=== PATIENT | female | born 1980 | race Caucasian/White ===

== ENCOUNTER → 2016-08-21 | Outpatient (CLI) | payer OTHER ==
[~2016-08-21] MED LIST: ATV/1 PO; BACL20TA PO; CHOL2000 PO; CLC100 PO; CLON1TAB3 PO; CLX40 PO; CYAN10005 PO; DIAZ10GE RE; FING1CAP PO; GABA800T PO; LAMO150T32 PO; LAMO200T38 PO; LAMO25TA PO; LEVE750T PO; LEVO50TA6 PO; METH500T37 PO; NRN800 PO; QUET150T PO; SRQ25 PO; ZFRODT4HP PO
[2016-08-21 13:14] LABS: BASO % 0.2 %; BASO ABS # 0.01 K/uL (0-0.2); COMPLETE YES; EOS % 0.4 %; HEMATOCRIT 45.4 % (37-47); IG% 0.2 %; LYMPH % 11.9 %; LYMPH ABS # 0.65 K/uL (1.2-3.4); MEAN CELL VOLUME 90.8 fL (80-100); MEAN CORPUSCULAR HEMOGLOBIN 31.4 pg (25-34); MEAN CORPUSCULAR HGB CONC 34.6 g/dl (32-36); MEAN PLATELET VOLUME 9.3 fL (7.4-10.4); MONO % 9.3 %; PLATELET COUNT 258 K/uL (130-400); WHITE BLOOD COUNT 5.46 K/uL (4.8-10.8)
[2016-08-21 13:49] LABS: ALT/SGPT 16 U/L (12-78); BLOOD UREA NITROGEN 8 mg/dl (7-18); CARBON DIOXIDE 27 mmol/L (21-32); CHLORIDE 106 mmol/L (98-107); CREATININE 0.68 mg/dl (0.60-1.20); GLUCOSE 91 mg/dl (70-99); POTASSIUM 3.6 mmol/L (3.5-5.1); SODIUM 142 mmol/L (136-145)
[2016-08-21 13:59] LABS: ALB/GLOB RATIO 1.5 (0.9-2); ALKALINE PHOSPHATASE 92 U/L (45-117); AST/SGOT 8 U/L (15-37); THYROID STIMULATING HORMONE 0.718 uIu/ml (0.300-4.500)
[2016-08-26 23:29] LABS: JCV ANTIBODY POSITIVE; JCV INDEX 0.56
== END | disposition home or self-care (01) ==
LOC: C.LAB 11:50
PROVIDERS: ATTEND Physician Assistant
DX: G35 Multiple sclerosis (principal); E03.9 Hypothyroidism, unspecified; E55.9 Vitamin D deficiency, unspecified; G40.309 Generalized idiopathic epilepsy and epileptic syndromes, not intractable, without status epilepticus; M62.838 Other muscle spasm; Z51.81 Encounter for therapeutic drug level monitoring; Z79.899 Other long term (current) drug therapy

== ENCOUNTER 2016-10-15 19:44 | Emergency (ER) | payer OTHER ==
[~2016-10-15] VITALS: Ht 172.7 cm; Wt 49.9 kg
[~2016-10-15 19:44] MED LIST changes: -CHOL2000 PO; -CYAN10005 PO; -DIAZ10GE RE; -FING1CAP PO; -LAMO150T32 PO; -LAMO25TA PO; -METH500T37 PO; -NRN800 PO; -SRQ25 PO; -ZFRODT4HP PO
[2016-10-15 19:47] VITALS: TEMP 37.2; Ht 172.7 cm; Wt 49.9 kg
[2016-10-15 20:24] VITALS: O2SAT 96
[2016-10-15 20:30] LABS: BASO % 0.2 %; BASO ABS # 0.01 K/uL (0-0.2); COMPLETE YES; IG% 0.2 %; LYMPH % 11.6 %; LYMPH ABS # 0.56 K/uL (1.2-3.4); MEAN CELL VOLUME 92.3 fL (80-100); MEAN CORPUSCULAR HEMOGLOBIN 32.1 pg (25-34); MEAN CORPUSCULAR HGB CONC 34.8 g/dl (32-36); MEAN PLATELET VOLUME 9.3 fL (7.4-10.4); MONO % 16.1 %; NEUT % 70.9 %; PLATELET COUNT 267 K/uL (130-400); RED BLOOD COUNT 4.55 M/uL (4.2-5.4); WHITE BLOOD COUNT 4.83 K/uL (4.8-10.8)
[2016-10-15 20:37] LABS: BUN/CREATININE RATIO 11.2 (10-20); CALCIUM 8.8 mg/dl (8.5-10.1); CREATININE 0.57 mg/dl (0.60-1.20); MAGNESIUM 2.3 mg/dl (1.8-2.4); POTASSIUM 3.7 mmol/L (3.5-5.1)
[2016-10-15 20:42] LABS: INR 0.9 (0.9-1.1)
[2016-10-15 20:48] LABS: PHOSPHORUS 3.1 mg/dl (2.5-4.9); THYROID STIMULATING HORMONE 2.41 uIu/ml (0.300-4.500)
[2016-10-15] MEDS ORDERED: SRQ25 PO (21:30)
[2016-10-15] MEDS ORDERED: FING1CAP PO (21:30)
[2016-10-15 21:33] LABS: URINE APPEARANCE TURBID (CLEAR); URINE BILIRUBIN NEG (NEG); URINE COLOR YELLOW; URINE EPITHELIAL CELL AUTO >30 /lpf (0-5); URINE NITRITE NEG (NEG); URINE PH 8.5 (4.5-7.5); URINE SPECIFIC GRAVITY 1.024 (1.000-1.030); UROBILINOGEN NEG (NEG)
[2016-10-15 21:35] LABS: MANUAL MICROSCOPIC REQUIRED? NO; REVIEW REQ? NO
--- NOTE | 2016-10-15 22:17 | EMERGENCY ROOM VISIT NOTE ---
History Report prepared by Jordyn: Fazal Estevez Under the Supervision of: Dr. Vicente Pedraza M.D. First contact with patient: 19:50 Chief Complaint: SEIZURE Stated Complaint: SEIZURE History of Present Illness The patient is a 35 year old female who presents to the Emergency Room by EMS with complaints of an episode of seizure-like activity occurring 2 hours ago. She has a history of a seizure disorder and MS. Per caregiver, the patient has had a lot of "small seizures" on and off for the past few months, but none this severe. She states that the patient began seizing shortly after brushing her teeth tonight. She states that her seizure began with "stabbing" pain and " sharp sounds" in her left ear. The patient's caregiver states that the patient laid down on her bed, and began convulsing. She states that she flipped the patient onto her side because she was making "gurgling" noises. She estimates that the episode lasted for about 20 minutes. The patient has had 20 minute long seizures in the past, but not recently. She notes that she is on Lamictal and Keppra for her seizures. She currently complains of a headache and nausea. The patient began vomiting upon arriving to the ED. Source of History: patient Onset: 2 hours ago Symptom Intensity: 20 minutes Quality: other (seizure-like activity) Timing: other (episode) Associated Symptoms: + headache, + nausea, + vomiting Review of Systems See HPI for pertinent positives & negatives. A total of 10 systems reviewed and were otherwise negative. Past Medical & Surgical Medical Problems: (1) Altered mental status (2) Expressive aphasia (3) Expressive aphasia (4) MS (multiple sclerosis) (5) MS (multiple sclerosis) (6) Seizures (7) Seizures (8) Sprain of knee (9) Sprain of knee (10) Status epilepticus Surgical Problems: (1) History of knee surgery Family History FHx: hypertension FHx: seizures Social History Smoking Status: Current Every Day Smoker Alcohol Use: none Drug Use: marijuana Marital Status: single Housing Status: lives with family Occupation Status: disabled Current/Historical Medications Scheduled Baclofen (Lioresal), 20 MG PO HS Citalopram (Citalopram Hydrobromide), 40 MG PO QAM Clonazepam (Klonopin), Unknown Dose PO HS Fingolimod Hcl (Gilenya), 0.5 MG PO DAILY Gabapentin (Neurontin), 1,600 MG PO BID Lamotrigine (Lamictal), 200 MG PO BID Levetiracetam (Keppra), 1,500 MG PO BID Levothyroxine Sodium (Levothyroxine Sodium), 50 MCG PO DAILY Quetiapine Fumarate (Quetiapine Fumarate), 75 MG PO HS Scheduled PRN Docusate Sodium (Docusate Sodium), 100 MG PO DAILY PRN for Constipation Lorazepam (Ativan), 1 MG PO BID PRN for Anxiety Allergies Coded Allergies: Penicillins (Verified Allergy, Mild, 10/15/16) Clindamycin (Verified Adverse Reaction, Severe, NAUSEA/VOMITING, 10/15/16) Rice (Verified Adverse Reaction, Unknown, vomiting, 10/15/16) Physical Exam Vital Signs Date Time Temp Pulse Resp B/P Pulse Ox O2 Delivery O2 Flow Rate FiO2 10/15/16 22:20 82 16 127/72 96 10/15/16 21:24 96 16 118/69 96 Room Air 10/15/16 20:24 96 Room Air 10/15/16 19:57 94 10/15/16 19:47 37.2 94 16 123/76 96 Room Air Physical Exam GENERAL: Patient is a healthy-appearing well-nourished HEAD: Normocephalic atraumatic EYES: Ocular movements intact pupils equal and react to light OROPHARYNX mucous membranes are moist no exudates present no erythema or edema present NECK: Supple no nuchal rigidity CHEST: Good equal expansion LUNGS: Clear and equal to auscultation CARDIAC: Normal S1 and S2 ABDOMEN: Soft nontender no guarding BACK: No CVA tenderness EXTREMITIES: No pain upon palpation normal muscle strength in all groups no clubbing cyanosis or edema NEURO: Patient is following commands is answering questions appropriately. Alert and oriented x3 Cranial Nerves 2-12 grossly intact Medical Decision & Procedures Laboratory Results 10/15/16 19:00 Red Blood Count 4.55, Mean Corpuscular Volume 92.3, Mean Corpuscular Hemoglobin 32.1, Mean Corpuscular Hemoglobin Concent 34.8, Mean Platelet Volume 9.3, Neutrophils (%) (Auto) 70.9, Lymphocytes (%) (Auto) 11.6, Monocytes (%) (Auto) 16.1, Eosinophils (%) (Auto) 1.0, Basophils (%) (Auto) 0.2, Neutrophils # (Auto ) 3.42, Lymphocytes # (Auto) 0.56, Monocytes # (Auto) 0.78, Eosinophils # (Auto ) 0.05, Basophils # (Auto) 0.01 10/15/16 19:00 Test 10/15/16 19:00 10/15/16 20:39 10/15/16 20:41 10/15/16 21:20 White Blood Count 4.83 K/uL (4.8-10.8) Red Blood Count 4.55 M/uL (4.2-5.4) Hemoglobin 14.6 g/dL (12.0-16.0) Hematocrit 42.0 % (37-47) Mean Corpuscular Volume 92.3 fL (80-100) Mean Corpuscular Hemoglobin 32.1 pg (25-34) Mean Corpuscular Hemoglobin Concent 34.8 g/dl (32-36) Platelet Count 267 K/uL (130-400) Mean Platelet Volume 9.3 fL (7.4-10.4) Neutrophils (%) (Auto) 70.9 % Lymphocytes (%) (Auto) 11.6 % Monocytes (%) (Auto) 16.1 % Eosinophils (%) (Auto) 1.0 % Basophils (%) (Auto) 0.2 % Neutrophils # (Auto) 3.42 K/uL (1.4-6.5) Lymphocytes # (Auto) 0.56 K/uL (1.2-3.4) Monocytes # (Auto) 0.78 K/uL (0.11-0.59) Eosinophils # (Auto) 0.05 K/uL (0-0.5) Basophils # (Auto) 0.01 K/uL (0-0.2) RDW Standard Deviation 41.7 fL (36.4-46.3) RDW Coefficient of Variation 12.5 % (11.5-14.5) Immature Granulocyte % (Auto) 0.2 % Immature Granulocyte # (Auto) 0.01 K/uL (0.00-0.02) Prothrombin Time 10.0 SECONDS (9.0-12.0) Prothromb Time International Ratio 0.9 (0.9-1.1) Activated Partial Thromboplast Time 26.9 SECONDS (21.0-31.0) Partial Thromboplastin Ratio 1.0 Anion Gap 6.0 mmol/L (3-11) Est Creatinine Clear Calc Drug Dose 109.6 ml/min Estimated GFR () 140.2 Estimated GFR (Non- 121.0 BUN/Creatinine Ratio 11.2 (10-20) Calcium Level 8.8 mg/dl (8.5-10.1) Phosphorus Level 3.1 mg/dl (2.5-4.9) Magnesium Level 2.3 mg/dl (1.8-2.4) Thyroid Stimulating Hormone (TSH) 2.410 uIu/ml (0.300-4.500) Bedside Glucose 115 mg/dl (70-90) Urine Color YELLOW Urine Appearance TURBID (CLEAR) Urine pH 8.5 (4.5-7.5) Urine Specific [place] 1.024 (1.000-1.030) Urine Protein NEG (NEG) Urine Glucose (UA) NEG (NEG) Urine Ketones NEG (NEG) Urine Occult Blood NEG (NEG) Urine Nitrite NEG (NEG) Urine Bilirubin NEG (NEG) Urine Urobilinogen NEG (NEG) Urine Leukocyte Esterase NEG (NEG) Urine WBC (Auto) 1-5 /hpf (0-5) Urine RBC (Auto) 0-4 /hpf (0-4) Urine Hyaline Casts (Auto) 1-5 /lpf (0-5) Urine Epithelial Cells (Auto) >30 /lpf (0-5) Urine Bacteria (Auto) 4+ (NEG) Labs reviewed by ED physician. ECG Indication: other (seizure-like activity) Rate (beats per minute): 94 Rhythm: normal sinus Findings: no acute ischemic change, no ectopy ED Course 2005: Past medical records reviewed. The patient was evaluated in room A12B. A complete history and physical examination was performed. 2210: Upon reexamination the patient is resting comfortably. I discussed results and treatment plan with the patient. She verbalizes agreement and understanding. The patient is ready for discharge. Medical Decision Differential diagnosis: Etiologies such as infection, hypoglycemia, electrolyte abnormalities, cardiac sources, intracerebral event, trauma, toxicologic, neurologic, as well as others were entertained. This is a 35-year-old female who is a history of seizures who presents emergency department seizure. She has no evidence of meningitis encephalitis on examination is refusing all medications in the emergency department area she also does not have an elevation in her white blood count has a normal renal profile normal liver profile. Based on these findings I felt that the patient was well enough to be discharged home. Patient was in agreement with the treatment plan. Impression Primary Impression: Seizure Scribe Attestation The scribe's documentation has been prepared under my direction and personally reviewed by me in its entirety. I confirm that the note above accurately reflects all work, treatment, procedures, and medical decision making performed by me. Departure Information Dispostion Home / Self-Care Referrals RV. Medellin MD (PCP) Forms HOME CARE DOCUMENTATION FORM, IMPORTANT VISIT INFORMATION Patient Instructions My [facility], Seizures - [facility] Additional Instructions You have been examined and treated today on an emergency basis only. This is not a substitute for, or an effort to provide, complete comprehensive medical care. It is impossible to recognize and treat all injuries or illnesses in a single emergency department visit. It is therefore important that you follow up closely with Dr Freed. Call as soon as possible for an appointment. Thank you for your time and consideration. I look forward to speaking with you again soon. Please don't hesitate to call us if you have any questions.
[2016-10-15 22:20] VITALS: BP 127/72; PULSE 82; O2SAT 96
== END 2016-10-15 22:22 | disposition home or self-care (01) ==
LOC: EDBD 19:44 → C.EDA 19:47
DX: R56.9 Unspecified convulsions (principal); G40.909 Epilepsy, unspecified, not intractable, without status epilepticus; G35 Multiple sclerosis; F17.200 Nicotine dependence, unspecified, uncomplicated; Z98.890 Other specified postprocedural states; Z82.49 Family history of ischemic heart disease and other diseases of the circulatory system; Z82.0 Family history of epilepsy and other diseases of the nervous system; Z79.899 Other long term (current) drug therapy

== ENCOUNTER → 2016-11-15 | Outpatient (CLI) | payer OTHER ==
[~2016-11-15] MED LIST changes: +CHOL2000 PO; +CYAN10005 PO; +DIAZ10GE RE; +FING1CAP PO; +GADAVIST IV PRN; +LAMO150T32 PO; +LAMO25TA PO; +METH500T37 PO; +NRN800 PO; -QUET150T PO; +SRQ25 PO; +ZFRODT4HP PO
--- NOTE | 2016-11-15 13:53 | DIAGNOSTIC IMAGING REPORT ---
BRAIN COMBO FOR MS CLINICAL HISTORY: Multiple sclerosis. COMPARISON STUDY: MRI of the brain August 18, 2015. TECHNIQUE: Utilizing 1.5 Missy magnet, multiplanar, multiecho imaging of the brain was performed pre and postcontrast administration according to the multiple sclerosis protocol. Injection of 4.5 cc of Gadavist IV was uneventful. FINDINGS: There are no areas of restricted diffusion. No acute intracranial hemorrhage, midline shift or mass effect is present. Mild ventricular dilatation is unchanged and due to central atrophy. Extensive white matter T2 hyperintense foci are similar to exam of August 18, 2015. Areas of demyelination are noted within the supratentorial and infratentorial brain. No enhancement is identified to suggest active demyelination. No new plaques are identified. The appearance of the brain is similar to exam of August 18, 2015. Calvarial signal is maintained. IMPRESSION: 1. No acute intracranial findings. 2. No significant change in extensive white matter T2 hyperintense foci suggestive of demyelinating plaques. No change since exam of August 18, 2015. No new plaques. No evidence for active demyelination. Electronically signed by: Stan Dickson M.D. 11/15/2016 1:52 PM Dictated Date/Time: 11/15/2016 1:41 PM
== END | disposition home or self-care (01) ==
LOC: C.MRI 12:16
PROVIDERS: ATTEND Physician Assistant
DX: G35 Multiple sclerosis (principal)

== ENCOUNTER 2016-11-24 13:28 | Emergency (ER) | payer OTHER ==
[~2016-11-24] VITALS: Ht 172.7 cm; Wt 45.7 kg
[~2016-11-24 13:28] MED LIST changes: -CHOL2000 PO; -CYAN10005 PO; -DIAZ10GE RE; -GADAVIST IV PRN; -LAMO150T32 PO; -LAMO25TA PO; -METH500T37 PO; -NRN800 PO; -ZFRODT4HP PO
[2016-11-24 13:47] VITALS: TEMP 37.1; Ht 172.7 cm; Wt 45.7 kg
[2016-11-24 14:04] VITALS: O2SAT 93
[2016-11-24] MEDS ORDERED: SODIUM CHLORIDE 0.9% 1000ML 1,000 ML IV STA (14:14)
[2016-11-24 14:26] LABS: BASO % 0.1 %; BASO ABS # 0.01 K/uL (0-0.2); COMPLETE YES; EOS % 0.1 %; HEMATOCRIT 43.7 % (37-47); IG% 0.1 %; LYMPH % 4.5 %; LYMPH ABS # 0.33 K/uL (1.2-3.4); MEAN CELL VOLUME 91.2 fL (80-100); MEAN CORPUSCULAR HEMOGLOBIN 30.3 pg (25-34); MEAN CORPUSCULAR HGB CONC 33.2 g/dl (32-36); MEAN PLATELET VOLUME 9.5 fL (7.4-10.4); MONO % 4.5 %; NEUT % 90.7 %; PLATELET COUNT 267 K/uL (130-400); RED BLOOD COUNT 4.79 M/uL (4.2-5.4); WHITE BLOOD COUNT 7.32 K/uL (4.8-10.8)
[2016-11-24 14:44] LABS: BUN/CREATININE RATIO 8.6 (10-20); CALCIUM 9.1 mg/dl (8.5-10.1); CREATININE 0.66 mg/dl (0.60-1.20); POTASSIUM 3.8 mmol/L (3.5-5.1)
[2016-11-24 14:55] LABS: ALB/GLOB RATIO 1.8 (0.9-2); THYROID STIMULATING HORMONE 0.698 uIu/ml (0.300-4.500)
[2016-11-24 15:14] VITALS: PULSE 85; O2SAT 99
[2016-11-24] MEDS ORDERED: LEVETIRACETAM 500 MG TAB PO STA (15:43)
[2016-11-24] MEDS ORDERED: LAMO25TA PO (15:56)
--- NOTE | 2016-11-24 15:56 | EMERGENCY ROOM VISIT NOTE ---
ED Visit Note First contact with patient: 15:55 I did evaluate and examine this patient myself. I did guide management for the patient. I agree with the APC's assessment as discussed. Please see the APC's dictation for further details. I did independently review the blood work. The case was discussed with her neurologist. He recommended increasing her Lamictal and continuing her on Keppra.
--- NOTE | 2016-11-24 15:57 | EMERGENCY ROOM VISIT NOTE ---
History First contact with patient: 13:48 Chief Complaint: SEIZURE Stated Complaint: SEIZURE Nursing Triage Summary: pt was at home witnessed by mother pt had 20-30 minute seizure then 20 minutes postictal/ pt became violent police were on scene. mother gave pt 1mg sl ativan then given 1mg ativan iv [facility] pt is alert and orient at this time pt reports hx ms and seizures last seizure 2months ago per pt. History of Present Illness The patient is a 35 year old female who presents to the Emergency Room via ambulance accompanied by mother with complaints of "seizure". Patient has a history of seizure and multiple sclerosis. The mother states that recently her psychiatrist has been trying to wean her off of Seroquel and Klonopin. Over the past month that patient has had approximately 3 petit mal seizures involving drooling and nodding. The mother states that today the patient was in the recliner, and for 20-30 minutes experienced a tonic-clonic seizure. The patient was found to be postictal, and was aggressive/agitated postevent. The mother states that the agitation is not typical for her therefore called 911 for further evaluation and management. The patient follows with Dr. Vega and [facility] for her seizures. The patient states she's been taking all of her medication regularly, and her last seizure was 3 months ago. The patient states that her head hurts at this time, but notes this is typical for her after seizure-like activity. She denies biting her tongue and was not incontinent of urine or stool. The mother states that typically she wants her daughter experienced a seizure, and then sleep afterwards however she was quite agitated therefore reinforcing her decision to bring her to the emergency department. Patient does state that she is experiencing some chest pain or shortness of breath, but also states this is very typical after her seizure. She denies any fevers or chills. The patient states that she currently is taking 750 mg, 2 tablets twice daily of Keppra. As well as 300 mg of Lamictal in the morning and evening. Review of Systems A complete 10-point Review of Systems was discussed with the patient, with pertinent positives and negatives listed in the History of Present Illness. All remaining Review of Systems questions can be considered negative unless otherwise specified. Past Medical/Surgical History Medical Problems: (1) Altered mental status (2) Expressive aphasia (3) Expressive aphasia (4) MS (multiple sclerosis) (5) MS (multiple sclerosis) (6) Seizures (7) Seizures (8) Sprain of knee (9) Sprain of knee (10) Status epilepticus Surgical Problems: (1) History of knee surgery Family History FHx: hypertension FHx: seizures Social History Smoking Status: Current Every Day Smoker Alcohol Use: none Drug Use: marijuana Marital Status: single Housing Status: lives with family Occupation Status: disabled Current/Historical Medications Scheduled Baclofen (Lioresal), 20 MG PO HS Citalopram (Citalopram Hydrobromide), 40 MG PO QAM Fingolimod Hcl (Gilenya), 0.5 MG PO DAILY Gabapentin (Neurontin), 1,600 MG PO BID Lamotrigine (Lamictal), 200 MG PO BID Lamotrigine (Lamictal), 1 TAB PO BID Levetiracetam (Keppra), 1,500 MG PO BID Levothyroxine Sodium (Levothyroxine Sodium), 50 MCG PO DAILY Quetiapine Fumarate (Quetiapine Fumarate), 75 MG PO HS Scheduled PRN Docusate Sodium (Docusate Sodium), 100 MG PO DAILY PRN for Constipation Lorazepam (Ativan), 1 MG PO BID PRN for Anxiety Allergies Coded Allergies: Penicillins (Verified Allergy, Mild, 10/15/16) Clindamycin (Verified Adverse Reaction, Severe, NAUSEA/VOMITING, 10/15/16) Rice (Verified Adverse Reaction, Unknown, vomiting, 10/15/16) Physical Exam Vital Signs Date Time Temp Pulse Resp B/P (MAP) Pulse Ox O2 Delivery O2 Flow Rate FiO2 11/24/16 16:05 17 116/77 11/24/16 15:14 85 17 100/63 99 Room Air 11/24/16 14:04 93 Room Air 11/24/16 13:47 37.1 111 18 110/76 95 Room Air 11/24/16 13:37 37.1 111 18 110/76 95 Room Air 11/24/16 13:36 107 Physical Exam VITAL SIGNS - Vital signs and nursing notes were reviewed. Patient is afebrile , normotensive, slightly tachycardic at a rate of 111 bpm, and is saturating well on room air 95%. GENERAL -35-year-old female appearing her stated age who is in no acute distress. Communicates well with provider and answers questions appropriately. SKIN - Without rashes. The skin and integument is intact. No evidence of rashes or breaks in the integument. HEAD - NC/AT. No bazzi signs or raccoons eyes. EYES - PERRL with EOMI bilaterally. Sclera anicteric. Palpebral conjunctiva pink and moist with no injection noted. EARS - No deformities of external structures noted on gross examination bilaterally. No pain elicited with palpation of the tragus bilaterally. External auditory canals without discharge or otorrhea. Tympanic membranes pearly medrano without retraction or bulging. No fluid or purulent material visualized behind the TM. Handle of malleus, umbo, cone of light, pars tensa/ flaccid all easily visualized. NOSE - Midline and without cyanosis. No epistaxis or purulent drainage noted. Septum midline without deviation or septal hematoma noted. MOUTH/OROPHARYNX - Without perioral cyanosis. Buccal mucosa pink and moist and without leukoplakia. Tongue midline with equal elevation of palate bilaterally. No tonsillar hypertrophy, erythema, or exudates noted. Good dentition noted. NECK - Neck with FROM. Supple to palpation. No nuchal rigidity. No C-spine tenderness. LUNGS - Chest wall symmetric without accessory muscle use, intercostals retractions, or central cyanosis. Normal vesicular breath sounds CTA B/L. No wheezes, rales, or rhonchi appreciated. CARDIAC - RRR with S1/S2. No murmur, rubs, or gallops appreciated. ABDOMEN - Abdominal contour without pulsations or visible masses. BS normoactive all four quadrants. No tenderness, palpable masses, hepatosplenomegaly, or ascites noted. EXTREMITIES - No clubbing or peripheral cyanosis. No pretibial edema present. She is neurovascularly intact in the upper extremities. +5/5 strength noted in UE/LE bilaterally. NEUROLOGIC - Cranial nerves II through XII grossly intact. Sensory intact to light touch throughout. PSYCH - A&O. Pt is very pleasant and interacts well with examiner. Medical Decision & Procedures Laboratory Results 11/24/16 14:15 Red Blood Count 4.79, Mean Corpuscular Volume 91.2, Mean Corpuscular Hemoglobin 30.3, Mean Corpuscular Hemoglobin Concent 33.2, Mean Platelet Volume 9.5, Neutrophils (%) (Auto) 90.7, Lymphocytes (%) (Auto) 4.5, Monocytes (%) (Auto) 4.5, Eosinophils (%) (Auto) 0.1, Basophils (%) (Auto) 0.1, Neutrophils # (Auto) 6.63, Lymphocytes # (Auto) 0.33, Monocytes # (Auto) 0.33, Eosinophils # (Auto) 0.01, Basophils # (Auto) 0.01 11/24/16 14:15 Test 11/24/16 14:15 White Blood Count 7.32 K/uL (4.8-10.8) Red Blood Count 4.79 M/uL (4.2-5.4) Hemoglobin 14.5 g/dL (12.0-16.0) Hematocrit 43.7 % (37-47) Mean Corpuscular Volume 91.2 fL (80-100) Mean Corpuscular Hemoglobin 30.3 pg (25-34) Mean Corpuscular Hemoglobin Concent 33.2 g/dl (32-36) Platelet Count 267 K/uL (130-400) Mean Platelet Volume 9.5 fL (7.4-10.4) Neutrophils (%) (Auto) 90.7 % Lymphocytes (%) (Auto) 4.5 % Monocytes (%) (Auto) 4.5 % Eosinophils (%) (Auto) 0.1 % Basophils (%) (Auto) 0.1 % Neutrophils # (Auto) 6.63 K/uL (1.4-6.5) Lymphocytes # (Auto) 0.33 K/uL (1.2-3.4) Monocytes # (Auto) 0.33 K/uL (0.11-0.59) Eosinophils # (Auto) 0.01 K/uL (0-0.5) Basophils # (Auto) 0.01 K/uL (0-0.2) RDW Standard Deviation 42.1 fL (36.4-46.3) RDW Coefficient of Variation 12.6 % (11.5-14.5) Immature Granulocyte % (Auto) 0.1 % Immature Granulocyte # (Auto) 0.01 K/uL (0.00-0.02) Prothrombin Time 11.0 SECONDS (9.0-12.0) Prothromb Time International Ratio 1.0 (0.9-1.1) Activated Partial Thromboplast Time 25.9 SECONDS (21.0-31.0) Partial Thromboplastin Ratio 1.0 Anion Gap 10.0 mmol/L (3-11) Est Creatinine Clear Calc Drug Dose 86.6 ml/min Estimated GFR () 133.6 Estimated GFR (Non- 115.3 BUN/Creatinine Ratio 8.6 (10-20) Calcium Level 9.1 mg/dl (8.5-10.1) Total Bilirubin 0.3 mg/dl (0.2-1) Aspartate Amino Transf (AST/SGOT) 8 U/L (15-37) Alanine Aminotransferase (ALT/SGPT) 18 U/L (12-78) Alkaline Phosphatase 80 U/L (45-117) Total Protein 7.1 gm/dl (6.4-8.2) Albumin 4.6 gm/dl (3.4-5.0) Globulin 2.5 gm/dl (2.5-4.0) Albumin/Globulin Ratio 1.8 (0.9-2) Thyroid Stimulating Hormone (TSH) 0.698 uIu/ml (0.300-4.500) Acetaminophen Level < 2 ug/ml (10-30) Medications Administered Medications (Trade) Dose Ordered Sig/Dinesh Route Start Time Stop Time Status Last Admin Dose Admin Sodium Chloride 1,000 ml @ 200 mls/hr Q5H STAT IV 11/24/16 14:14 11/24/16 16:32 DC 11/24/16 14:38 200 MLS/HR Levetiracetam (Keppra Tab) 500 mg NOW STAT PO 11/24/16 15:43 11/24/16 15:44 DC 11/24/16 15:43 500 MG Lamotrigine (Lamictal Tab) 25 mg AMHS STAT PO 11/24/16 15:49 11/24/16 15:51 DC 11/24/16 15:49 25 MG Medical Decision Patient was seen and evaluated as above. After obtaining a thorough history and physical examination IV access was initiated and the above workup was performed. Patient was instructed as today via ambulance for a seizure of which she has had in the past. Mother is concerned that she became agitated postevent therefore called 911. Patient is alert and oriented at this time, and is behaving appropriately. Bedside EKG reveals normal sinus rhythm, no change compared to previous. CBC reveals no concerning leukocytosis or anemia. Coags unremarkable. CMP reveals BUN low at 6, creatinine 0.66, AST low at 8. TSH unremarkable. Acetaminophen level low, Lamictal and Keppra levels pending. I do not believe any imaging is necessary at this time. She was given 1 L of NSS. She is reevaluated and was found to be continued stable. I discussed the case with my attending, and subsequently the on-call neurologist. I spoke with Dr. Vega at 3:30 PM. He recommended providing the patient with 500 mg of Keppra by mouth 1 now, continuing her regular dose of Keppra as well as increase her Lamictal from 3 mg in the morning and 300 mg in the evening, to 325 mg in the morning and 325 mg in the evening. The patient are he has an ample supply of the 300 mg tablets therefore she'll be given a prescription for 25 mg in the morning and evening to supplement with her already 300 mg tablets dose. She was given 5 mg of Keppra by mouth 1 here, and instructed to resume her normal medications at home. The patient this time is stable for discharge, and was recommended follow-up with Dr. Vega's office as per his recommendations by calling their office first thing tomorrow morning. Patient was educated upon worrisome symptoms which to return, had questions for discharge, and was discharged home in good condition. I attest that I personally reviewed the patient's medication list, and have made changes accordingly. Patient is found to be normotensive at this time. In evaluation treatment this patient following differential diagnoses were entertained: Seizure, drug induced seizure, hypoxia, anoxia, among others. Impression Primary Impression: seizure Additional Impression: MS (multiple sclerosis) Departure Information Dispostion Home / Self-Care Condition GOOD Prescriptions Lamotrigine (LAMICTAL) 25 Mg Tab 1 TAB PO BID for 30 Days, #60 TAB 1 Refill Please add the 25mg to the 300mg lamictal twice daily. This is to make a total dose of 325mg twice daily. Prov: Asim Byrd PA-C 11/24/16 Referrals RV. Medellin MD (PCP) Patient Instructions My [facility] Additional Instructions You were seen in the emergency Department for a seizure. At this time Dr. Vega, your neurologist recommends increasing your Lamictal to 325 mg twice daily. I prescribed you 25 mg tablets, to add to your current dose of 300 mg twice daily. This is to make 325mg twice daily. Please call Dr. Vega's office first thing tomorrow morning to schedule follow-up regarding your seizures. Please return to the emergency department with any new/concerning symptoms. Thank you for your time. Problem Qualifiers
[2016-11-24 16:05] VITALS: BP 116/77
== END 2016-11-24 16:06 | disposition home or self-care (01) ==
LOC: EDBD 13:28 → C.EDC 13:30
DX: R56.9 Unspecified convulsions (principal); G35 Multiple sclerosis; F17.200 Nicotine dependence, unspecified, uncomplicated; Z98.890 Other specified postprocedural states; Z82.49 Family history of ischemic heart disease and other diseases of the circulatory system; Z82.0 Family history of epilepsy and other diseases of the nervous system

== ENCOUNTER 2017-01-15 11:54 | Emergency (ER) | payer OTHER ==
[~2017-01-15] VITALS: Ht 165.1 cm; Wt 57.0 kg
[~2017-01-15 11:54] MED LIST changes: -CLON1TAB3 PO; +LAMO25TA PO
[2017-01-15] MEDS ORDERED: SUCCINYLCHOLINE CHLORIDE 20 MG/ML 10 ML VIAL IV ONE (11:56)
[2017-01-15] MEDS ORDERED: LEVETIRACETAM IV 1,000 MG in DEXTROSE 5% 100ML 100 ML IV STA (11:58)
[2017-01-15 12:00] VITALS: TEMP 36.4; Ht 165.1 cm; Wt 57.0 kg
--- NOTE | 2017-01-15 12:00 | EMERGENCY ROOM VISIT NOTE ---
History Report prepared by Jordyn: Adriana Hunt Under the Supervision of: Dr. Vicente Pedraza M.D. First contact with patient: 11:47 Stated Complaint: SEIZURE History of Present Illness The patient is a 21 year old female who presents to the Emergency Room with complaints of a seizure happening prior to arrival. Per EMS, the patient's seizure started around 1030, and she was given Ativan at 1120 and 1126 and stopped breathing around 1130. Per EMS, she was not vomiting. Her last seizure was one week ago. Per her mother, the patient did not take any of her morning medications and was on her way to take them when she had her seizure. Limited HPI secondary to seizure. Source of History: EMS History Limited By: other (seizure) Onset: prior to arrival Position: other (global) Quality: other (seizure) Associated Symptoms: No vomiting Review of Systems Limited ROS secondary to seizure. Past Medical & Surgical Medical Problems: (1) Altered mental status (2) Expressive aphasia (3) Expressive aphasia (4) MS (multiple sclerosis) (5) MS (multiple sclerosis) (6) Seizures (7) Seizures (8) Sprain of knee (9) Sprain of knee (10) Status epilepticus Surgical Problems: (1) History of knee surgery Family History Unable to obtain medical history sheet secondary to seizure. Social History Marital Status: single Current/Historical Medications Scheduled Baclofen (Lioresal), 20 MG PO HS Citalopram (Citalopram Hydrobromide), 40 MG PO QAM Fingolimod Hcl (Gilenya), 0.5 MG PO DAILY Gabapentin (Neurontin), 1,600 MG PO BID Lamotrigine (Lamictal), 200 MG PO QAM Lamotrigine (Lamictal), 50 MG PO BID Lamotrigine (Lamictal), 300 MG PO QPM Levetiracetam (Keppra), 1,500 MG PO BID Levothyroxine Sodium (Levothyroxine Sodium), 50 MCG PO DAILY Quetiapine Fumarate (Quetiapine Fumarate), 75 MG PO HS Scheduled PRN Docusate Sodium (Docusate Sodium), 100 MG PO DAILY PRN for Constipation Lorazepam (Ativan), 1 MG PO BID PRN for Anxiety Allergies Coded Allergies: Penicillins (Verified Allergy, Mild, 10/15/16) Clindamycin (Verified Adverse Reaction, Severe, NAUSEA/VOMITING, 10/15/16) Rice (Verified Adverse Reaction, Unknown, vomiting, 10/15/16) Physical Exam Vital Signs Date Time Temp Pulse Resp B/P (MAP) Pulse Ox O2 Delivery O2 Flow Rate FiO2 01/15/17 13:29 105 21 109/79 01/15/17 13:28 85/64 01/15/17 13:16 102/78 01/15/17 13:14 99 21 100 01/15/17 13:09 111 18 100 01/15/17 13:03 100 Mechanical Ventilator 50 01/15/17 13:03 100 Mechanical Ventilator 50 01/15/17 13:00 118/81 01/15/17 12:54 105 15 100 01/15/17 12:53 114/73 01/15/17 12:45 122/78 01/15/17 12:41 123 01/15/17 12:39 121 11 100 01/15/17 12:37 112/82 01/15/17 12:30 50 01/15/17 12:00 100 01/15/17 12:00 36.4 132 20 129/77 98 Ambu-Bag 15.0 Physical Exam GENERAL: Patient is a well-nourished female. Unresponsive. HEAD: Normocephalic atraumatic EYES: Eyes are twitching OROPHARYNX mucous membranes are moist no exudates present no erythema or edema present NECK: Supple no nuchal rigidity CHEST: Good equal expansion LUNGS: Clear and equal to auscultation CARDIAC: Normal S1 and S2 ABDOMEN: Soft nontender no guarding BACK: No CVA tenderness EXTREMITIES: No pain upon palpation normal muscle strength in all groups no clubbing cyanosis or edema NEURO: Cranial Nerves 2-12 grossly intact Medical Decision & Procedures ER Provider Diagnostic Interpretation: Radiology results as stated below per my review and radiologist interpretation: CT SCAN OF THE BRAIN WITHOUT IV CONTRAST CLINICAL HISTORY: Seizure. COMPARISON STUDY: CT of the brain dated 08/17/2015. MRI of the brain dated 11/15/2016. TECHNIQUE: Unenhanced axial CT scan of the brain is performed from the vertex to the skull base. Automated dose control exposure was utilized. A dose lowering technique was utilized adhering to the principles of ALARA. CT DOSE: 614.27 mGy.cm FINDINGS: Brain parenchyma: Hypodense lesions within the subcortical and periventricular white matter are similar to previous. There is no hemorrhage, mass effect, or evidence of acute territorial ischemia by CT criteria. Paul-white matter is preserved. No extra-axial fluid collection is seen. Ventricles, sulci, cisterns: Normal in configuration. Intracranial vasculature: The visualized intracranial vasculature at the skull base is normal in appearance. Calvarium: Unremarkable. Sinuses and mastoids: The visualized paranasal sinuses are clear. The mastoid air cells are well pneumatized. Orbits: The bony orbits are grossly intact. IMPRESSION: 1. There is no hemorrhage, mass effect, or evidence of acute territorial ischemia by CT criteria. 2. Unchanged appearance of subcortical and periventricular white matter changes as compared to prior studies. Electronically signed by: Bruno Charlton M.D. 01/15/2017 12:39 PM Dictated Date/Time: 01/15/2017 12:36 PM CHEST ONE VIEW PORTABLE CLINICAL HISTORY: Seizure, respiratory failure. Intubation. COMPARISON STUDY: 10/26/2014 FINDINGS: Study is performed in this portable supine fashion. There is an endotracheal tube 44 mm above the vito. Heart is normal in size. There is no focal pulmonary consolidation. No pleural effusions are visualized in the supine study[ IMPRESSION: Endotracheal tube 44 mm above the vito Electronically signed by: Yovani Jackson M.D. 01/15/2017 12:24 PM Dictated Date/Time: 01/15/2017 12:23 PM Laboratory Results 01/15/17 12:00 Red Blood Count 4.37, Mean Corpuscular Volume 92.2, Mean Corpuscular Hemoglobin 31.8, Mean Corpuscular Hemoglobin Concent 34.5, Mean Platelet Volume 8.8, Neutrophils (%) (Auto) 84.4, Lymphocytes (%) (Auto) 8.0, Monocytes (%) (Auto) 6.8, Eosinophils (%) (Auto) 0.4, Basophils (%) (Auto) 0.1, Neutrophils # (Auto) 6.48, Lymphocytes # (Auto) 0.61, Monocytes # (Auto) 0.52, Eosinophils # (Auto) 0.03, Basophils # (Auto) 0.01 01/15/17 12:00 Test 01/15/17 12:00 01/15/17 12:05 01/15/17 12:52 01/15/17 12:54 White Blood Count 7.67 K/uL (4.8-10.8) Red Blood Count 4.37 M/uL (4.2-5.4) Hemoglobin 13.9 g/dL (12.0-16.0) Hematocrit 40.3 % (37-47) Mean Corpuscular Volume 92.2 fL (80-100) Mean Corpuscular Hemoglobin 31.8 pg (25-34) Mean Corpuscular Hemoglobin Concent 34.5 g/dl (32-36) Platelet Count 280 K/uL (130-400) Mean Platelet Volume 8.8 fL (7.4-10.4) Neutrophils (%) (Auto) 84.4 % Lymphocytes (%) (Auto) 8.0 % Monocytes (%) (Auto) 6.8 % Eosinophils (%) (Auto) 0.4 % Basophils (%) (Auto) 0.1 % Neutrophils # (Auto) 6.48 K/uL (1.4-6.5) Lymphocytes # (Auto) 0.61 K/uL (1.2-3.4) Monocytes # (Auto) 0.52 K/uL (0.11-0.59) Eosinophils # (Auto) 0.03 K/uL (0-0.5) Basophils # (Auto) 0.01 K/uL (0-0.2) RDW Standard Deviation 41.6 fL (36.4-46.3) RDW Coefficient of Variation 12.3 % (11.5-14.5) Immature Granulocyte % (Auto) 0.3 % Immature Granulocyte # (Auto) 0.02 K/uL (0.00-0.02) Prothrombin Time 10.8 SECONDS (9.0-12.0) Prothromb Time International Ratio 1.0 (0.9-1.1) Activated Partial Thromboplast Time 25.0 SECONDS (21.0-31.0) Partial Thromboplastin Ratio 1.0 Estimated GFR () 144.4 Estimated GFR (Non- 124.6 BUN/Creatinine Ratio 9.8 (10-20) Calcium Level 7.8 mg/dl (8.5-10.1) Phosphorus Level 4.8 mg/dl (2.5-4.9) Magnesium Level 1.9 mg/dl (1.8-2.4) Thyroid Stimulating Hormone (TSH) 1.630 uIu/ml (0.300-4.500) Human Chorionic Gonadotropin, Qual NEG (NEG) Bedside Chloride 102 mEq/L (101-112) Bedside Total CO2 31 mEq/l (24-31) Anion Gap 13.0 mmol/L (16-25) Bedside Blood Urea Nitrogen 3 mg/dl (7-18) Bedside Creatinine 0.6 mg/dl (0.6-1.3) Bedside Glucose (other) 141 mg/dl (70-99) Bedside Ionized Calcium (Garrett) 1.15 mmol/l (1.12-1.32) Urine Color YELLOW Urine Appearance CLEAR (CLEAR) Urine pH 6.0 (4.5-7.5) Urine Specific [place] 1.020 (1.000-1.030) Urine Protein 2+ (NEG) Urine Glucose (UA) NEG (NEG) Urine Ketones NEG (NEG) Urine Occult Blood NEG (NEG) Urine Nitrite NEG (NEG) Urine Bilirubin NEG (NEG) Urine Urobilinogen NEG (NEG) Urine Leukocyte Esterase NEG (NEG) Urine WBC (Auto) 1-5 /hpf (0-5) Urine RBC (Auto) 0-4 /hpf (0-4) Urine Hyaline Casts (Auto) 1-5 /lpf (0-5) Urine Epithelial Cells (Auto) 10-20 /lpf (0-5) Urine Bacteria (Auto) 1+ (NEG) Bedside Hemoglobin 13.3 g/dl (12.0-16.0) Bedside Hematocrit 39 % (37-47) Bedside Blood Gas pH (LAB) 7.16 (7.35-7.45) Bedside Blood Gas pCO2 (LAB) 80 mmHg (35-46) Bedside Blood Gas pO2 (LAB) 254 mmHg (80-95) Bedside Blood Gas HCO3 (LAB) 29 meq/L (19-24) Bedside Blood Gas Total CO2 31 mEq/l (24-31) Bedside Blood Gas Base Excess (LAB) 0.0 meq/L (-9-1.8) Bedside Blood Gas O2 Saturation 100.0 % (90-95) Bedside Sodium 140 mEq/L (135-144) Bedside Potassium 3.5 mEq/L (3.3-5.0) Labs reviewed by ED physician. Medications Administered Medications (Trade) Dose Ordered Sig/Dinesh Route Start Time Stop Time Status Last Admin Dose Admin Levetiracetam 1000 mg/Dextrose 110 ml @ 440 mls/hr ONE STAT IV 01/15/17 11:58 01/15/17 12:12 DC 01/15/17 12:25 440 MLS/HR Sodium Chloride 1,000 ml @ 999 mls/hr Q1H1M STAT IV 01/15/17 12:02 01/15/17 13:02 DC 01/15/17 12:10 999 MLS/HR Miscellaneous (Rapid Sequence Induction Bag) 1 ea STK-MED ONCE N/A 01/15/17 12:07 01/15/17 12:08 DC 01/15/17 12:10 1 EA Propofol (Diprivan Iv Emulsion 100ml Vial) 1 dose UD PRN IV 01/15/17 12:15 01/15/17 14:31 DC 01/15/17 12:20 1 DOSE Procedure Endotracheal Intubation Indication status epilepticus. The patient was on 100% oxygen via NRB prior to the procedure. Suction, airway equipment, RSI drugs, respiratory equipment, and appropriate personnel were prepared prior to the initiation of the procedure. A time out was taken. Induction was performed with succinylcholine. After observing the clinical benefit of the medications, the airway was easily visualized utilizing a GlideScope. A 7.5 size ETT tube was placed atraumatically to 24 cm using standard technique. The cuff inflated without signs of malfunction. There were bilateral breath sounds, positive colormetric change, no gastric sounds, a good capnography waveform, and post procedure pulse oximetry was 100%. Post intubation sedation and paralysis was administered using Propofol. There were no complications. ED Course 1150: Past medical records reviewed. The patient was evaluated in room A1. A complete history and physical examination was performed. 1158: Ordered Levetiracetam 1,000 mg/Dextrose 110 ml @ 440 mls/hr IV. 1202: Ordered Sodium Chloride 1,000 ml @ 999 mls/hr IV. 1215: Ordered Propofol 1 dose IV. 1250: I discussed the patient's case with Dr. Fuchs, he has agreed to evaluate the patient for further management and care. She will be life flighted. Medical Decision Differential diagnosis: Etiologies such as infection, hypoglycemia, electrolyte abnormalities, cardiac sources, intracerebral event, trauma, toxicologic, neurologic, as well as others were entertained. This is a 36-year-old female who presents emergency department in status epilepticus. The patient was given 4 mg of Ativan. Currently she has sonorous respirations that are very shallow. CO2 indicator is indicating between 50 and 70. Based on these findings I felt that the patient should be intubated as above. The patient was intubated using succinylcholine and sent for CAT scan of the head. This did not show any acute process. An arterial blood gas was obtained which showed a pH of 7.1 and CO2 of 80. I did discuss the case with Dr. Orozco the neurologist on-call who recommended that the patient be transferred to get emergent EEG monitoring. The patient was loaded with Keppra in the emergency department. I did discuss the case with the patient's mother who agreed to transfer the patient to [facility]. Due to the fact of the prolonged seizure as well as the intubation I recommended that the patient be transferred via [facility] emergently. [facility] without further incident. Medication Reconcilliation Current Medication List: was personally reviewed by me Blood Pressure Screening Patient's blood pressure: Normal blood pressure Consults Time Called: 1220 Consulting Physician: Dr. Fuchs[facility] Returned Call: 1250 I discussed the patient's case with Dr. Fuchs, he has agreed to evaluate the patient for further management and care. Impression Primary Impression: Status epilepticus Critical Care I have personally spent greater than 90 minutes of critical care time in the direct management of this patient. This includes bedside care, interpretation of diagnostic studies, and testing, discussion with consultants, patient, and family members, and other required patient management activities. This 90 minutes is in excess of all separately billable procedures. Scribe Attestation The scribe's documentation has been prepared under my direction and personally reviewed by me in its entirety. I confirm that the note above accurately reflects all work, treatment, procedures, and medical decision making performed by me. Departure Information Dispostion Transfer Acute Care Facility
[2017-01-15] MEDS ORDERED: SODIUM CHLORIDE 0.9% 1000ML 1,000 ML IV STA (12:02)
[2017-01-15] MEDS ORDERED: RAPID SEQUENCE INDUCTION BAG ONE (12:07)
[2017-01-15] MEDS ORDERED: PROPOFOL IV EMULSION 10 MG/ML 100 ML VIAL IV PRN (12:15)
[2017-01-15 12:18] LABS: ISTAT CREATININE 0.6 mg/dl (0.6-1.3); ISTAT HEMOGLOBIN 13.9 g/dl (12.0-16.0); ISTAT IONIZED CALCIUM 1.15 mmol/l (1.12-1.32)
[2017-01-15 12:22] LABS: BASO % 0.1 %; BASO ABS # 0.01 K/uL (0-0.2); COMPLETE YES; EOS % 0.4 %; HEMATOCRIT 40.3 % (37-47); IG% 0.3 %; LYMPH ABS # 0.61 K/uL (1.2-3.4); MEAN CELL VOLUME 92.2 fL (80-100); MEAN CORPUSCULAR HEMOGLOBIN 31.8 pg (25-34); MEAN CORPUSCULAR HGB CONC 34.5 g/dl (32-36); MEAN PLATELET VOLUME 8.8 fL (7.4-10.4); MONO % 6.8 %; NEUT % 84.4 %; PLATELET COUNT 280 K/uL (130-400); RED BLOOD COUNT 4.37 M/uL (4.2-5.4); WHITE BLOOD COUNT 7.67 K/uL (4.8-10.8)
--- NOTE | 2017-01-15 12:25 | DIAGNOSTIC IMAGING REPORT ---
CHEST ONE VIEW PORTABLE CLINICAL HISTORY: Seizure, respiratory failure. Intubation. COMPARISON STUDY: 10/26/2014 FINDINGS: Study is performed in this portable supine fashion. There is an endotracheal tube 44 mm above the vito. Heart is normal in size. There is no focal pulmonary consolidation. No pleural effusions are visualized in the supine study[ IMPRESSION: Endotracheal tube 44 mm above the vito Electronically signed by: Yovani Jackson M.D. 01/15/2017 12:24 PM Dictated Date/Time: 01/15/2017 12:23 PM
--- NOTE | 2017-01-15 12:40 | DIAGNOSTIC IMAGING REPORT ---
CT SCAN OF THE BRAIN WITHOUT IV CONTRAST CLINICAL HISTORY: Seizure. COMPARISON STUDY: CT of the brain dated 08/17/2015. MRI of the brain dated 11/15/2016. TECHNIQUE: Unenhanced axial CT scan of the brain is performed from the vertex to the skull base. Automated dose control exposure was utilized. A dose lowering technique was utilized adhering to the principles of ALARA. CT DOSE: 614.27 mGy.cm FINDINGS: Brain parenchyma: Hypodense lesions within the subcortical and periventricular white matter are similar to previous. There is no hemorrhage, mass effect, or evidence of acute territorial ischemia by CT criteria. Paul-white matter is preserved. No extra-axial fluid collection is seen. Ventricles, sulci, cisterns: Normal in configuration. Intracranial vasculature: The visualized intracranial vasculature at the skull base is normal in appearance. Calvarium: Unremarkable. Sinuses and mastoids: The visualized paranasal sinuses are clear. The mastoid air cells are well pneumatized. Orbits: The bony orbits are grossly intact. IMPRESSION: 1. There is no hemorrhage, mass effect, or evidence of acute territorial ischemia by CT criteria. 2. Unchanged appearance of subcortical and periventricular white matter changes as compared to prior studies. Electronically signed by: Bruno Charlton M.D. 01/15/2017 12:39 PM Dictated Date/Time: 01/15/2017 12:36 PM
[2017-01-15 12:45] LABS: PROTHROMBIN TIME (PATIENT) 10.8 SECONDS (9.0-12.0)
[2017-01-15 12:52] LABS: BLOOD UREA NITROGEN 5 mg/dl (7-18); BUN/CREATININE RATIO 9.8 (10-20); CALCIUM 7.8 mg/dl (8.5-10.1); CARBON DIOXIDE 30 mmol/L (21-32); CHLORIDE 109 mmol/L (98-107); CREATININE 0.51 mg/dl (0.60-1.20); GLUCOSE 138 mg/dl (70-99); MAGNESIUM 1.9 mg/dl (1.8-2.4); POTASSIUM 3.4 mmol/L (3.5-5.1); SODIUM 142 mmol/L (136-145)
[2017-01-15 13:02] LABS: PHOSPHORUS 4.8 mg/dl (2.5-4.9)
[2017-01-15 13:03] VITALS: O2SAT 100
[2017-01-15 13:08] LABS: ISTAT ARTERIAL BLOOD GAS HCO3 29 meq/L (19-24); ISTAT ARTERIAL BLOOD GAS PCO2 80 mmHg (35-46); ISTAT ARTERIAL BLOOD GAS PO2 254 mmHg (80-95); ISTAT ARTERIAL BLOOD GAS pH 7.16 (7.35-7.45); ISTAT CARBON DIOXIDE 31 mEq/l (24-31); ISTAT HEMATOCRIT 39 % (37-47); ISTAT HEMOGLOBIN 13.3 g/dl (12.0-16.0); ISTAT SODIUM 140 mEq/L (135-144)
[2017-01-15 13:14] VITALS: O2SAT 100
[2017-01-15 13:14] LABS: PREG INTERNAL NEGATIVE QC NEG CLEAR BACKGROUND; PREG INTERNAL POSITIVE QC POS CONTROL LINE
[2017-01-15 13:15] LABS: URINE APPEARANCE CLEAR (CLEAR); URINE BILIRUBIN NEG (NEG); URINE COLOR YELLOW; URINE NITRITE NEG (NEG); UROBILINOGEN NEG (NEG); ZZURINE CULT IF INDIC CATH YES
[2017-01-15 13:23] LABS: MANUAL MICROSCOPIC REQUIRED? NO; REVIEW REQ? NO
[2017-01-15] MEDS ORDERED: LAMO25TA PO (13:24)
[2017-01-15] MEDS ORDERED: LAMO200T38 PO (13:24)
[2017-01-15 13:29] VITALS: BP 109/79; PULSE 105
--- NOTE | 2017-01-17 10:59 | Pharmacy Progress Note ---
ED Pharmacist Culture FollowUp Date of Service: Jan 17, 2017. Patient's urine cx from 01/15/17 is growing alpha-strep not enterococcus The patient presented with seizure activity. Hx was limited. UA was not career representative of UTI. Alpha-strep, not enterococcus is most likely viridans strep and is not a usual cause of UTI. This likely represents contamination. No action required.
== END 2017-01-15 13:54 | disposition short-term general hospital (02) ==
LOC: EDBD 11:54 → C.ED 11:55
DX: G40.901 Epilepsy, unspecified, not intractable, with status epilepticus (principal); G35 Multiple sclerosis; Z79.899 Other long term (current) drug therapy

== ENCOUNTER → 2017-02-04 | Outpatient (CLI) | payer OTHER ==
[~2017-02-04] MED LIST changes: +CHOL2000 PO; +CYAN10005 PO; +DIAZ10GE RE; +LAMO150T32 PO; +METH500T37 PO; +NRN800 PO; +ZFRODT4HP PO
[2017-02-04 13:22] LABS: BASO % 0.3 %; BASO ABS # 0.01 K/uL (0-0.2); COMPLETE YES; HEMATOCRIT 44.3 % (37-47); IG% 0.5 %; MEAN CELL VOLUME 94.3 fL (80-100); MEAN CORPUSCULAR HEMOGLOBIN 30.4 pg (25-34); MEAN CORPUSCULAR HGB CONC 32.3 g/dl (32-36); MEAN PLATELET VOLUME 8.8 fL (7.4-10.4); MONO % 15.7 %; NEUT % 64.5 %; PLATELET COUNT 292 K/uL (130-400); WHITE BLOOD COUNT 3.89 K/uL (4.8-10.8)
== END | disposition home or self-care (01) ==
LOC: C.LAB 12:46
PROVIDERS: ATTEND Physician Assistant
DX: G35 Multiple sclerosis (principal); G40.309 Generalized idiopathic epilepsy and epileptic syndromes, not intractable, without status epilepticus

== ENCOUNTER → 2017-02-27 | Outpatient (CLI) | payer OTHER | END | disposition home or self-care (01) | LOC: C.LAB 11:46 | PROVIDERS: ATTEND Psychiatry & Neurology Neurology | DX: G40.309 Generalized idiopathic epilepsy and epileptic syndromes, not intractable, without status epilepticus (principal) ==

== ENCOUNTER 2017-03-07 15:19 | Observation (INO) | payer OTHER ==
[~2017-03-07] VITALS: Ht 172.7 cm; Wt 46.3 kg
[~2017-03-07 15:19] MED LIST changes: -CHOL2000 PO; -CYAN10005 PO; -DIAZ10GE RE; -LAMO150T32 PO; -METH500T37 PO; -NRN800 PO; -ZFRODT4HP PO
[2017-03-07] MEDS ORDERED: SODIUM CHLORIDE 0.9% 1000ML 1,000 ML IV STA ×2 (15:51→19:10)
[2017-03-07] MEDS ORDERED: LORAZEPAM 2 MG/ML 1 ML VIAL IV STA (15:51)
[2017-03-07] MEDS ORDERED: LEVETIRACETAM IV 2,000 MG in DEXTROSE 5% 250ML 250 ML IV ONE (16:00)
--- NOTE | 2017-03-07 16:04 | EMERGENCY ROOM VISIT NOTE ---
History Report prepared by Jordyn: Isauro Casas Under the Supervision of: Dr. Malik Vaz M.D. First contact with patient: 15:33 Chief Complaint: SEIZURE Stated Complaint: SEIZURE History of Present Illness The patient is a 36 year old female who presents to the Emergency Room with complaints of a seizure that began this afternoon. She has a past medical history of seizures and MS. She was discharged from [facility] at the end of December for a seizure. They also found a new lesion to the front of her brain. This is her first seizure since she was discharged. Per the patient's mother, she did not take her morning medications this morning which is abnormal for her. The patient's physical therapist was over at her house this morning and just finished their session. The patient then began to be "spaced out." She then began to seize. The physical therapist called EMS. At her baseline, the patient can walk with a walker and talk normally. Her current post-seizure state is normal for her when she has a seizure. She is shaking and having difficulty speaking. Per report, mother gave 10 mg Valium rectally en route. She currently takes Keppra 1500 mg bid, Lamictal 350 mg bid, Ativan PRN, Gabapentin, and Citalopram. Source of History: patient Onset: this afternoon Position: other (global) Symptom Intensity: moderate Quality: other (Seizure) Timing: constant Note: She is currently having tremors. Review of Systems See HPI for pertinent positives and negatives. A total of ten systems were reviewed and were otherwise negative. Past Medical & Surgical Medical Problems: (1) Altered mental status (2) Expressive aphasia (3) Expressive aphasia (4) Grand mal convulsion (5) MS (multiple sclerosis) (6) MS (multiple sclerosis) (7) Seizures (8) Seizures (9) Sprain of knee (10) Sprain of knee (11) Status epilepticus Surgical Problems: (1) History of knee surgery Family History FHx: hypertension FHx: seizures Social History Smoking Status: Unknown if Ever Smoked Alcohol Use: none Drug Use: marijuana Marital Status: single Housing Status: lives with family Occupation Status: disabled Current/Historical Medications Scheduled Baclofen (Lioresal), 20 MG PO HS Cholecalciferol (Vitamin D3), 1 CAP PO DAILY Citalopram (Citalopram Hydrobromide), 40 MG PO QAM Cyanocobalamin (Vitamin B-12), 1,000 MCG PO DAILY Diazepam (Anticonvulsant) (Diazepam), 10 MG RE PRN Fingolimod Hcl (Gilenya), 0.5 MG PO DAILY Gabapentin (Gabapentin), 2 TAB PO BID Lamotrigine (Lamictal), 350 MG PO DAILY Lamotrigine (Lamictal), 1 TAB PO DAILY Levetiracetam (Keppra), 1,500 MG PO BID Levothyroxine Sodium (Levothyroxine Sodium), 50 MCG PO DAILY Scheduled PRN Docusate Sodium (Docusate Sodium), 100 MG PO DAILY PRN for Constipation Methocarbamol (Robaxin), 500 MG PO HS PRN for Muscle Spasms Miscellaneous Medications Lorazepam (Ativan), 0.25 MG PO Allergies Coded Allergies: Penicillins (Verified Allergy, Mild, 03/07/17) Clindamycin (Verified Adverse Reaction, Severe, NAUSEA/VOMITING, 03/07/17) Rice (Verified Adverse Reaction, Unknown, vomiting, 03/07/17) Physical Exam Vital Signs Date Time Temp Pulse Resp B/P (MAP) Pulse Ox O2 Delivery O2 Flow Rate FiO2 03/07/17 22:05 97 18 135/88 94 Room Air 03/07/17 21:29 101 03/07/17 21:02 102 16 115/63 95 Room Air 03/07/17 20:10 37.4 103 16 125/73 96 Room Air 03/07/17 19:38 106 16 113/63 95 Room Air 03/07/17 18:30 110 111/72 94 03/07/17 16:57 103 20 125/72 98 03/07/17 16:44 101 03/07/17 15:58 96 Room Air 03/07/17 15:57 96 Room Air 03/07/17 15:33 37.3 124 18 136/84 95 Room Air Physical Exam GENERAL: Alert but drowsy with Questionable post-ictal state/delirium vs partial seizure. HENT: Normocephalic, atraumatic. Dry, cracked mucous membranes. No evidence of tongue biting. EYES: Normal conjunctiva. Sclera non-icteric. No visible nystagmus or ocular clonus. NECK: Supple. No nuchal rigidity. FROM. No JVD. RESPIRATORY: Clear to auscultation. CARDIAC: Sinus tachycardic rate, normal rhythm. Extremities warm and well perfused. Pulses equal. ABDOMEN: Soft, non-distended. No tenderness to palpation. No rebound or guarding. No masses. RECTAL: Deferred. MUSCULOSKELETAL: Chest examination reveals no tenderness. The back is symmetrical on inspection without obvious abnormality. There is no CVA tenderness to palpation. No joint edema. LOWER EXTREMITIES: Calves are equal size bilaterally and non-tender. No edema. No discoloration. NEURO: Clonic movements to bilateral upper extremities, verbal to questioning but will just say "yes" repeatedly to any question. Unable to maintain her gaze , looking all over the room. No rigidity. SKIN: No rash or jaundice noted. Medical Decision & Procedures ER Provider Diagnostic Interpretation: Radiology results as stated below per my review and radiologist interpretation: CHEST ONE VIEW PORTABLE CLINICAL HISTORY: 36 years-old Female presenting with SEIZURE. TECHNIQUE: Portable upright AP view of the chest was obtained. COMPARISON: 01/15/2017. FINDINGS: The endotracheal tube is no longer present. Cardiac mediastinal silhouette normal. Lungs mildly hyperinflated. Lungs and pleural spaces clear. Osseous structures normal. Upper abdomen normal. IMPRESSION: 1. Mild hyperinflation. Otherwise no acute cardiopulmonary disease. Electronically signed by: Bentley Martínez M.D. 03/07/2017 4:59 PM Dictated Date/Time: 03/07/2017 4:59 PM Laboratory Results 03/07/17 17:03 Red Blood Count 4.25, Mean Corpuscular Volume 92.2, Mean Corpuscular Hemoglobin 31.5, Mean Corpuscular Hemoglobin Concent 34.2, Mean Platelet Volume 9.3, Neutrophils (%) (Auto) 92.2, Lymphocytes (%) (Auto) 2.4, Monocytes (%) (Auto) 4.9, Eosinophils (%) (Auto) 0.1, Basophils (%) (Auto) 0.1, Neutrophils # (Auto) 9.07, Lymphocytes # (Auto) 0.24, Monocytes # (Auto) 0.48, Eosinophils # (Auto) 0.01, Basophils # (Auto) 0.01 03/07/17 17:03 Test 03/07/17 16:26 03/07/17 17:03 03/07/17 18:13 03/07/17 21:45 Bedside Glucose 111 mg/dl (70-90) White Blood Count 9.84 K/uL (4.8-10.8) Red Blood Count 4.25 M/uL (4.2-5.4) Hemoglobin 13.4 g/dL (12.0-16.0) Hematocrit 39.2 % (37-47) Mean Corpuscular Volume 92.2 fL (80-100) Mean Corpuscular Hemoglobin 31.5 pg (25-34) Mean Corpuscular Hemoglobin Concent 34.2 g/dl (32-36) Platelet Count 218 K/uL (130-400) Mean Platelet Volume 9.3 fL (7.4-10.4) Neutrophils (%) (Auto) 92.2 % Lymphocytes (%) (Auto) 2.4 % Monocytes (%) (Auto) 4.9 % Eosinophils (%) (Auto) 0.1 % Basophils (%) (Auto) 0.1 % Neutrophils # (Auto) 9.07 K/uL (1.4-6.5) Lymphocytes # (Auto) 0.24 K/uL (1.2-3.4) Monocytes # (Auto) 0.48 K/uL (0.11-0.59) Eosinophils # (Auto) 0.01 K/uL (0-0.5) Basophils # (Auto) 0.01 K/uL (0-0.2) RDW Standard Deviation 42.3 fL (36.4-46.3) RDW Coefficient of Variation 12.6 % (11.5-14.5) Immature Granulocyte % (Auto) 0.3 % Immature Granulocyte # (Auto) 0.03 K/uL (0.00-0.02) Anion Gap 7.0 mmol/L (3-11) Est Creatinine Clear Calc Drug Dose 95.7 ml/min Estimated GFR () 136.9 Estimated GFR (Non- 118.1 BUN/Creatinine Ratio 13.2 (10-20) Calcium Level 8.1 mg/dl (8.5-10.1) Phosphorus Level 3.1 mg/dl (2.5-4.9) Magnesium Level 2.0 mg/dl (1.8-2.4) Thyroid Stimulating Hormone (TSH) 1.560 uIu/ml (0.300-4.500) Urine Color YELLOW Urine Appearance CLEAR (CLEAR) Urine pH 6.0 (4.5-7.5) Urine Specific [place] 1.027 (1.000-1.030) Urine Protein 2+ (NEG) Urine Glucose (UA) NEG (NEG) Urine Ketones NEG (NEG) Urine Occult Blood NEG (NEG) Urine Nitrite NEG (NEG) Urine Bilirubin NEG (NEG) Urine Urobilinogen NEG (NEG) Urine Leukocyte Esterase NEG (NEG) Urine WBC (Auto) 1-5 /hpf (0-5) Urine RBC (Auto) 0-4 /hpf (0-4) Urine Hyaline Casts (Auto) 1-5 /lpf (0-5) Urine Epithelial Cells (Auto) >30 /lpf (0-5) Urine Bacteria (Auto) 3+ (NEG) Urine Renal Epithelial Cells 0-5 /lpf (0-5) Urine Test NEG (NEG) Laboratory results reviewed by me Medications Administered Medications (Trade) Dose Ordered Sig/Dinesh Route Start Time Stop Time Status Last Admin Dose Admin Sodium Chloride 1,000 ml @ 999 mls/hr Q1H1M STAT IV 03/07/17 15:51 03/07/17 16:51 DC 03/07/17 16:05 999 MLS/HR Lorazepam (Ativan Inj) 1 mg NOW STAT IV 03/07/17 15:51 03/07/17 15:54 DC 03/07/17 16:05 1 MG Levetiracetam 2000 mg/Dextrose 270 ml @ 999 mls/hr ONE ONCE IV 03/07/17 16:00 03/07/17 16:16 DC 03/07/17 16:38 999 MLS/HR Lamotrigine (Lamictal Tab) 350 mg NOW STAT PO 03/07/17 17:38 03/07/17 17:42 DC 03/07/17 17:57 350 MG Citalopram Hydrobromide (celeXA TAB) 40 mg NOW STAT PO 03/07/17 17:38 03/07/17 17:42 DC 03/07/17 17:57 40 MG Sodium Chloride 1,000 ml @ 999 mls/hr Q1H1M STAT IV 03/07/17 19:10 03/07/17 20:10 DC 03/07/17 19:45 999 MLS/HR ECG Indication: other (Seizure) Rate (beats per minute): 106 Rhythm: sinus tachycardia Findings: no acute ischemic change, other (Normal axis) ED Course 1533: The patient was evaluated in room A2. A complete history and physical exam was performed. 1551: Ordered Ativan Inj 1 mg Iv, Sodium Chloride 1000 ml @ 999 mls/hr IV 1600: Ordered Levetiracetam 2000 mg/Dextrose 270 ml @ 999 mls/hr IV 1734: I discussed the patient's case with Dr. Vega - Neurology, who follows up with the patient regularly. They are comfortable with discharging the patient. 1738: Ordered Citalopram Hydrobromide 40 mg PO, Lamictal Tab 350 mg PO Medical Decision I reviewed the patient's past medical history, medications, and the nursing notes as described above. Differential diagnoses include seizure, medication noncompliance, dehydration, and electrolyte abnormality. The patient is a 36-year-old woman with a past medical history of multiple sclerosis and seizure disorder with a recent admission for seizure in December complicated by and obtundation and intubation presents to the emergency department after having a seizure episode today in her home shortly after having physical therapy in the setting of not taking her medications this morning per history of present illness. On arrival the patient is alert and appears to follow simple commands and is redirectable however initially with limited speech perseverating single response regardless of the question and with clonic movements of bilateral upper extremities but otherwise no ocular clonus, tonic movements or rigidity. Patient was loaded with 2 g of Keppra in the setting of a home dose of 1500mg twice a day as well as Lamictal 350 mg twice a day. Once the patient had improvement in terms of her mental status she was given her oral Lamictal as well. Subsequently able to speak in full sentences and resolution of her clonic movements although mildly confused saying she is at home. Labs unremarkable with WBC within normal limits. CXR unremarkable. Case was discussed with Dr. Vega the patient's neurologist who agreed that given the clear etiology of medication noncompliance as the reason for her seizure and her continued trend to baseline after giving Keppra load, there is no indication from a seizure perspective for admission, patient could follow-up calling the office on Friday for a close follow-up next week. Plan was reviewed with the patient's mother who was reserved about the idea of going home and initially requesting admission to make sure her seizure does not recur. However, was reassured and agreeable to go home. However, the mother does note that at baseline the patient does have difficulty with gait in the setting of her MS and thus after additional IV fluid hydration will attempt ambulatory trial. Was updated by nurse regarding the patient's status and while further IV fluids continued she needed to use the bathroom but was not able to even stand independently to the bedside commode. Mother reports that this is baseline for her MS in the evening says it waxes and wanes thus given that the patient is nonambulatory will admit for prolonged post ictal state the setting of her MS with impaired ambulation. Case d/w Dr. Moncada, [facility] hospitalist, who will admit the patient for further management. Medication Reconcilliation Current Medication List: was personally reviewed by me Blood Pressure Screening Patient's blood pressure: Normal blood pressure Blood pressure disposition: Did not require urgent referral Consults Time Called: 1730 Consulting Physician: Dr. Vega - Neurology Returned Call: [phone] We discussed the patient's case. They is comfortable with discharging the patient. Impression Primary Impression: Seizure, epileptic Additional Impression: Multiple sclerosis Critical Care I have personally spent greater than 35 minutes of critical care time in the direct management of this patient. This includes bedside care, interpretation of diagnostic studies, and testing, discussion with consultants, patient, and family members, and other required patient management activities. This 35 minutes is in excess of all separately billable procedures. Scribe Attestation The scribe's documentation has been prepared under my direction and personally reviewed by me in its entirety. I confirm that the note above accurately reflects all work, treatment, procedures, and medical decision making performed by me. Departure Information Dispostion Home / Self-Care Referrals RV. Medellin MD (PCP) Forms HOME CARE DOCUMENTATION FORM, IMPORTANT VISIT INFORMATION Patient Instructions My [facility] Problem Qualifiers
[2017-03-07] MEDS ORDERED: CHOL2000 PO (16:13)
[2017-03-07] MEDS ORDERED: LAMO150T32 PO (16:13)
[2017-03-07] MEDS ORDERED: METH500T37 PO (16:13)
[2017-03-07] MEDS ORDERED: NRN800 PO (16:13)
[2017-03-07] MEDS ORDERED: CYAN10005 PO (16:13)
[2017-03-07] MEDS ORDERED: DIAZ10GE RE (16:14)
--- NOTE | 2017-03-07 17:01 | DIAGNOSTIC IMAGING REPORT ---
CHEST ONE VIEW PORTABLE CLINICAL HISTORY: 36 years-old Female presenting with SEIZURE. TECHNIQUE: Portable upright AP view of the chest was obtained. COMPARISON: 01/15/2017. FINDINGS: The endotracheal tube is no longer present. Cardiac mediastinal silhouette normal. Lungs mildly hyperinflated. Lungs and pleural spaces clear. Osseous structures normal. Upper abdomen normal. IMPRESSION: 1. Mild hyperinflation. Otherwise no acute cardiopulmonary disease. Electronically signed by: Bentley Martínez M.D. 03/07/2017 4:59 PM Dictated Date/Time: 03/07/2017 4:59 PM
[2017-03-07 17:29] LABS: BASO % 0.1 %; BASO ABS # 0.01 K/uL (0-0.2); COMPLETE YES; EOS % 0.1 %; HEMATOCRIT 39.2 % (37-47); IG% 0.3 %; LYMPH % 2.4 %; LYMPH ABS # 0.24 K/uL (1.2-3.4); MEAN CELL VOLUME 92.2 fL (80-100); MEAN CORPUSCULAR HEMOGLOBIN 31.5 pg (25-34); MEAN CORPUSCULAR HGB CONC 34.2 g/dl (32-36); MEAN PLATELET VOLUME 9.3 fL (7.4-10.4); MONO % 4.9 %; NEUT % 92.2 %; PLATELET COUNT 218 K/uL (130-400); RED BLOOD COUNT 4.25 M/uL (4.2-5.4); WHITE BLOOD COUNT 9.84 K/uL (4.8-10.8)
[2017-03-07] MEDS ORDERED: CITALOPRAM 20 MG TAB PO STA (17:38)
[2017-03-07 17:51] LABS: BUN/CREATININE RATIO 13.2 (10-20); CALCIUM 8.1 mg/dl (8.5-10.1); CREATININE 0.6 mg/dl (0.60-1.20); POTASSIUM 3.9 mmol/L (3.5-5.1)
[2017-03-07 18:02] LABS: PHOSPHORUS 3.1 mg/dl (2.5-4.9); THYROID STIMULATING HORMONE 1.56 uIu/ml (0.300-4.500)
[2017-03-07 18:29] LABS: PREG INTERNAL NEGATIVE QC NEG CLEAR BACKGROUND; PREG INTERNAL POSITIVE QC POS CONTROL LINE
[2017-03-07 18:36] LABS: URINE APPEARANCE CLEAR (CLEAR); URINE BILIRUBIN NEG (NEG); URINE COLOR YELLOW; URINE EPITHELIAL CELL AUTO >30 /lpf (0-5); URINE NITRITE NEG (NEG); URINE SPECIFIC GRAVITY 1.027 (1.000-1.030); UROBILINOGEN NEG (NEG)
[2017-03-07 18:45] LABS: MANUAL MICROSCOPIC REQUIRED? NO; REVIEW REQ? YES
[2017-03-07] MEDS ORDERED: METHOCARBAMOL 500 MG TAB PO PRN (22:45)
[2017-03-07] MEDS ORDERED: DOCUSATE SODIUM 100 MG CAP PO PRN (22:45)
[2017-03-07] MEDS ORDERED: ACETAMINOPHEN 325 MG TAB PO PRN (22:45)
[2017-03-07] MEDS ORDERED: ONDANSETRON INJ 2 MG/ML 2 ML VIAL IV PRN (22:45)
[2017-03-07] MEDS: LEVETIRACETAM 250 MG TAB PO ONE ×2 (23:24→23:39)
[2017-03-07] MEDS: GABAPENTIN 800 MG TAB PO ONE ×2 (23:24→23:39)
[2017-03-07] MEDS ORDERED: LEVETIRACETAM IV 1,000 MG in DEXTROSE 5% 100ML 100 ML IV STA (23:38)
[2017-03-07 23:48] VITALS: Ht 172.7 cm; Wt 46.3 kg
--- NOTE | 2017-03-07 23:55 | History and Physical ---
History & Physical Date & Time of Service: Mar 07, 2017 at 23:46 Chief Complaint: Seizure Primary Care Physician: RV. Medellin MD History of Present Illness Source: patient, family (mother) Dayan is a 36 year old female who presents to the ER after a seizure. She has known seizure disorder on gabapentin, keppra and lamictal. After the seizure her mother found her morning pills which she had not taken but she doesn't know why she didn't take them. The seizure lasted from 29 minutes starting at 13:47. Started off with getting quiet and confused stair. Then she had her typical grand mal seizure with shaking of all 4 of her limbs. Her mother called EMS about 5 minutes of seizing. Approximately 21 minutes into her seizure her mother gave her rectal diazepam 10mg. In the ER she was given a loading dose of keppra and her usual Lamictal. Plan was originally to be discharged however her mother felt she wasn't quite back to her baseline in terms of her memory therefore decision was made to admit overnight. She tends to fluctuate with her multiple sclerosis and it is worse in the evenings. Past Medical/Surgical History Medical Problems: (1) Altered mental status Status: Resolved (2) Expressive aphasia Status: Resolved (3) Expressive aphasia Status: Resolved (4) MS (multiple sclerosis) Status: Chronic (5) MS (multiple sclerosis) Status: Chronic (6) Seizures Status: Chronic (7) Seizures Status: Resolved (8) Sprain of knee Status: Resolved (9) Sprain of knee Status: Resolved (10) Status epilepticus Status: Resolved Surgical Problems: (1) History of knee surgery Status: Resolved Family History FHx: hypertension FHx: seizures Social History Smoking Status: Unknown if Ever Smoked Smokeless Tobacco Use: No Alcohol Use: none Drug Use: marijuana Marital Status: single Occupational Status: disabled Immunizations History of Influenza Vaccine: No History of Tetanus Vaccine?: No History of Pneumococcal: Yes History of Hepatitis B Vaccine: No Multi-Drug Resistant Organisms History of MDRO: No Allergies Coded Allergies: Penicillins (Verified Allergy, Mild, 03/07/17) Clindamycin (Verified Adverse Reaction, Severe, NAUSEA/VOMITING, 03/07/17) Rice (Verified Adverse Reaction, Unknown, vomiting, 03/07/17) Home Medications Scheduled Baclofen (Lioresal), 20 MG PO HS Cholecalciferol (Vitamin D3), 1 CAP PO DAILY Citalopram (Citalopram Hydrobromide), 40 MG PO QAM Cyanocobalamin (Vitamin B-12), 1,000 MCG PO DAILY Diazepam (Anticonvulsant) (Diazepam), 10 MG RE PRN Fingolimod Hcl (Gilenya), 0.5 MG PO DAILY Gabapentin (Gabapentin), 2 TAB PO BID Lamotrigine (Lamictal), 350 MG PO DAILY Lamotrigine (Lamictal), 1 TAB PO DAILY Levetiracetam (Keppra), 1,500 MG PO BID Levothyroxine Sodium (Levothyroxine Sodium), 50 MCG PO DAILY Scheduled PRN Docusate Sodium (Docusate Sodium), 100 MG PO DAILY PRN for Constipation Methocarbamol (Robaxin), 500 MG PO HS PRN for Muscle Spasms Miscellaneous Medications Lorazepam (Ativan), 0.25 MG PO Review of Systems All other systems reviewed and otherwise negative Physical Exam Vital Signs Date Time Temp Pulse Resp B/P (MAP) Pulse Ox O2 Delivery O2 Flow Rate FiO2 03/07/17 22:05 97 18 135/88 94 Room Air 03/07/17 21:29 101 03/07/17 21:02 102 16 115/63 95 Room Air 03/07/17 20:10 37.4 103 16 125/73 96 Room Air 03/07/17 19:38 106 16 113/63 95 Room Air 03/07/17 18:30 110 111/72 94 03/07/17 16:57 103 20 125/72 98 03/07/17 16:44 101 03/07/17 15:58 96 Room Air 03/07/17 15:57 96 Room Air 03/07/17 15:33 37.3 124 18 136/84 95 Room Air General Appearance: no apparent distress, + thin Head: normocephalic, atraumatic Eyes: normal inspection, PERRL, EOMI Respiratory/Chest: chest non-tender, lungs clear, normal breath sounds, no respiratory distress, no accessory muscle use Cardiovascular: regular rate, rhythm, no edema, no murmur, normal peripheral pulses Abdomen/GI: normal bowel sounds, non tender, soft Extremities/Musculoskelatal: no calf tenderness, normal capillary refill, no pedal edema Neurologic/Psych: head of conservation II-XII nml as tested (nill acute, longstanding expressive dysphasia), no motor/sensory deficits (non focal, moving all 4 extremities with good sustainability project manager strength, no reported sensory deficit), alert, + disoriented (disorientated to time, oritentated to place and person) Skin: normal color, warm/dry, no rash Diagnostics Laboratory Results Results Past 24 Hours Test 03/07/17 16:26 03/07/17 17:03 03/07/17 18:13 03/07/17 21:45 Range/Units Bedside Glucose 111 70-90 mg/dl White Blood Count 9.84 4.8-10.8 K/uL Red Blood Count 4.25 4.2-5.4 M/uL Hemoglobin 13.4 12.0-16.0 g/dL Hematocrit 39.2 37-47 % Mean Corpuscular Volume 92.2 80-100 fL Mean Corpuscular Hemoglobin 31.5 25-34 pg Mean Corpuscular Hemoglobin Concent 34.2 32-36 g/dl Platelet Count 218 130-400 K/uL Mean Platelet Volume 9.3 7.4-10.4 fL Neutrophils (%) (Auto) 92.2 % Lymphocytes (%) (Auto) 2.4 % Monocytes (%) (Auto) 4.9 % Eosinophils (%) (Auto) 0.1 % Basophils (%) (Auto) 0.1 % Neutrophils # (Auto) 9.07 1.4-6.5 K/uL Lymphocytes # (Auto) 0.24 1.2-3.4 K/uL Monocytes # (Auto) 0.48 0.11-0.59 K/uL Eosinophils # (Auto) 0.01 0-0.5 K/uL Basophils # (Auto) 0.01 0-0.2 K/uL RDW Standard Deviation 42.3 36.4-46.3 fL RDW Coefficient of Variation 12.6 11.5-14.5 % Immature Granulocyte % (Auto) 0.3 % Immature Granulocyte # (Auto) 0.03 0.00-0.02 K/uL Sodium Level 137 136-145 mmol/L Potassium Level 3.9 3.5-5.1 mmol/L Chloride Level 104 98-107 mmol/L Carbon Dioxide Level 26 21-32 mmol/L Anion Gap 7.0 3-11 mmol/L Blood Urea Nitrogen 8 7-18 mg/dl Creatinine 0.60 0.60-1.20 mg/dl Est Creatinine Clear Calc Drug Dose 95.7 ml/min Estimated GFR () 136.9 Estimated GFR (Non- 118.1 BUN/Creatinine Ratio 13.2 10-20 Random Glucose 173 70-99 mg/dl Calcium Level 8.1 8.5-10.1 mg/dl Phosphorus Level 3.1 2.5-4.9 mg/dl Magnesium Level 2.0 1.8-2.4 mg/dl Thyroid Stimulating Hormone (TSH) 1.560 0.300-4.500 uIu/ml Urine Color YELLOW Urine Appearance CLEAR CLEAR Urine pH 6.0 4.5-7.5 Urine Specific [place] 1.027 1.000-1.030 Urine Protein 2+ NEG Urine Glucose (UA) NEG NEG Urine Ketones NEG NEG Urine Occult Blood NEG NEG Urine Nitrite NEG NEG Urine Bilirubin NEG NEG Urine Urobilinogen NEG NEG Urine Leukocyte Esterase NEG NEG Urine WBC (Auto) 1-5 0-5 /hpf Urine RBC (Auto) 0-4 0-4 /hpf Urine Hyaline Casts (Auto) 1-5 0-5 /lpf Urine Epithelial Cells (Auto) >30 0-5 /lpf Urine Bacteria (Auto) 3+ NEG Urine Renal Epithelial Cells 0-5 0-5 /lpf Urine Test NEG NEG Microbiology Results 03/07/17 Urine Culture, Received Pending Diagnostic Radiology CHEST ONE VIEW PORTABLE CLINICAL HISTORY: 36 years-old Female presenting with SEIZURE. TECHNIQUE: Portable upright AP view of the chest was obtained. COMPARISON: 01/15/2017. FINDINGS: The endotracheal tube is no longer present. Cardiac mediastinal silhouette normal. Lungs mildly hyperinflated. Lungs and pleural spaces clear. Osseous structures normal. Upper abdomen normal. IMPRESSION: 1. Mild hyperinflation. Otherwise no acute cardiopulmonary disease. Electronically signed by: Bentley Martínez M.D. 03/07/2017 4:59 PM Dictated Date/Time: 03/07/2017 4:59 PM EKG Sinus tachycardia Otherwise normal ECG No ischemic changes When compared with ECG of 24-NOV-2016 13:44, No significant change was found Impression Assessment and Plan 36 year old female with multiple sclerosis and known seizure disorder presents to the ER with seizure after missing her morning anti-seizure medications Post seizure lasting for 29 minutes therefore technically nor status epilepticus however she required 10mg diazepam rectally to terminate seizure - secondary to missing her usual doses of medications on the morning of her seizure. Almost back to her baseline except some memory problems as her her mother. - observation overnight with seizure precautions - all her usual medications and doses prescribed including gabapentin, lamictal (given in the ER) and Keppra (will give her usual night time dose not in addition to loading dose in the ER) Multiple sclerosis - mother to bring in her usual Gilenya 0.5mg daily in the morning Hypothyroidism - continue levothyroxine Depression/anxiety - Continue citalopram .Attending Addendum: I have physically seen and examined this patient, have directed the resident medical activities, and agree with the H&P as noted above with the following exceptions as noted. Assessment and Plan: Seizure disorder/seizure activity prior to arrival due to missing morning medications-- Patient has received Keppra 2000 mg IV loading dose by ED staff. She is usually on Keppra 1500 mg by mouth twice a day. Patient had nausea and vomiting while in the ED, and therefore received an additional 1000 mg IV in the emergency department prior to leaving. She will resume her entire oral regimen tomorrow if able to take by mouth, including gabapentin and Lamictal. Multiple Sclerosis-- Does not appear to be an active flare at this time. Mother will bring in her usual dosing of Gilenya 0.5 mg by mouth every morning tomorrow. Hypothyroidism--continue levothyroxine current dosing. Anxiety with depression-- Continue usual dosing of citalopram. Level of Care Med/Surg Advanced Directives Existing Advance Directive: No Existing Living Will: No Existing Power of Final Inspector Balance Wheel: No Resuscitation Status FULL RESUSCITATION VTE Prophylaxis VTE Risk Assessment Done? Y/N: Yes Risk Level: Moderate Given or contraindicated: Treatment not indicated Social Service Consult None Apply Additional Copies To RV. Medellin MD Resident Tracking Resident Involvement: Resident Care Provided Care Provided: Adult Hospital Medicine
[2017-03-08] VITALS: BP 107/71; PULSE 94; TEMP 36.8; O2SAT 97
[2017-03-08 00:07] LABS: ALKALINE PHOSPHATASE 86 U/L (45-117); ALT/SGPT 21 U/L (12-78); AST/SGOT 9 U/L (15-37)
[2017-03-08] MEDS ORDERED: ONDANSETRON INJ 2 MG/ML 2 ML VIAL IV PRN (00:45)
[2017-03-08] MEDS ORDERED: ACETAMINOPHEN 325 MG TAB PO PRN (00:45)
[2017-03-08] MEDS ORDERED: METHOCARBAMOL 500 MG TAB PO PRN (00:45)
[2017-03-08] MEDS ORDERED: DOCUSATE SODIUM 100 MG CAP PO PRN (00:45)
[2017-03-08] MEDS ORDERED: IV FLUIDS COMPLETED PRN (04:00)
[2017-03-08] MEDS: LEVOTHYROXINE 50 MCG TAB PO SCH ×3 (05:52→07:55)
[2017-03-08] MEDS: CITALOPRAM 40 MG TAB PO SCH (07:52)
[2017-03-08] MEDS: LEVETIRACETAM 250 MG TAB PO SCH ×2 (07:53→21:29)
[2017-03-08] MEDS: CHOLECALCIFEROL 1000 INTER.UNIT TAB PO SCH (07:54)
[2017-03-08] MEDS: GABAPENTIN 800 MG TAB PO SCH ×2 (07:56→21:26)
[2017-03-08] MEDS: CYANOCOBALAMIN 500 MCG TAB (VIT B-12) PO SCH (07:56)
[2017-03-08] MEDS ORDERED: LEVETIRACETAM 250 MG TAB PO SCH (08:00)
[2017-03-08] MEDS ORDERED: CYANOCOBALAMIN 500 MCG TAB (VIT B-12) PO SCH (08:00)
[2017-03-08] MEDS ORDERED: CITALOPRAM 40 MG TAB PO SCH (08:00)
[2017-03-08] MEDS ORDERED: LEVOTHYROXINE 50 MCG TAB PO SCH (08:00)
[2017-03-08] MEDS ORDERED: CHOLECALCIFEROL 1000 INTER.UNIT TAB PO SCH (08:00)
[2017-03-08] MEDS ORDERED: GABAPENTIN 800 MG TAB PO SCH (08:00)
[2017-03-08 08:04] VITALS: BP 120/71; PULSE 96; TEMP 37; O2SAT 97
--- NOTE | 2017-03-08 08:04 | Family Medicine Progress Note ---
Progress Note Date of Service Mar 08, 2017. Subjective Pt evaluation today including: conversation w/ patient, conversation w/ family , physical exam, chart review, lab review, review of studies, conversation w/ home energy consultant supervisor, review of inpatient medication list Patient was alert this morning, with some degree of confusion. She is frustrated that she does not recall the exact events prior to and following her seizure and was given reassurance that this is sometimes the case after a prolonged seizure. Her main complaint otherwise is fatigue. She also has some nausea with breakfast, but no vomiting. She denies chest pain, dyspnea, abdominal pain. She states her tongue is sore where she bit it, but other than that she feels like she is close to baseline. When asked about the tremors noted in her legs and the head bobbing, she states these are just the muscle spasms from her multiple sclerosis, nonchalantly. She is followed by Dr. Vega, neurologist for the MS and seizures. Mother is at her bedside in the afternoon and states patient is still confused. Mom is concerned that the dose of her medication is insufficient and that is why she had the seizure, although it was discussed that the more likely etiology is the missed dose of medication. She is uncomfortable going home while the levels of her medication are pending, but was informed that because they are send out labs, they may take several days before returning. Mom understands, but is still nervous. Questions were answered to patient and her mother's satisfaction. ROS unremarkable except as noted above. Objective Vital Signs Date Time Temp Pulse Resp B/P (MAP) Pulse Ox O2 Delivery O2 Flow Rate FiO2 03/08/17 07:31 Room Air 03/08/17 00:00 Room Air 03/08/17 00:00 36.8 94 20 107/71 (83) 97 Room Air 03/07/17 23:56 101 18 130/80 94 03/07/17 23:51 101 18 130/80 94 Room Air 03/07/17 23:48 Room Air 03/07/17 22:05 97 18 135/88 94 Room Air 03/07/17 21:29 101 03/07/17 21:02 102 16 115/63 95 Room Air 03/07/17 20:10 37.4 103 16 125/73 96 Room Air 03/07/17 19:38 106 16 113/63 95 Room Air 03/07/17 18:30 110 111/72 94 03/07/17 16:57 103 20 125/72 98 03/07/17 16:44 101 03/07/17 15:58 96 Room Air 03/07/17 15:57 96 Room Air 03/07/17 15:33 37.3 124 18 136/84 95 Room Air Physical Exam General Appearance: WD/WN, no apparent distress Eyes: normal inspection ENT: hearing grossly normal, pharynx normal, + pertinent finding (Dry mucous membranes. Evidence of bitten tongue on left edge.) Neck: supple, no adenopathy, + pertinent finding (Rhythmic spasming of the neck causing head bobbing.) Respiratory/Chest: chest non-tender, lungs clear, normal breath sounds, no respiratory distress, no accessory muscle use Cardiovascular: regular rate, rhythm, no edema, no murmur Abdomen: normal bowel sounds, non tender, soft, no organomegaly Extremities: non-tender, no pedal edema, no calf tenderness, normal capillary refill, + pertinent finding (Fast tremors of both legs, R>L) Neurologic/Psychiatric: alert, normal mood/affect, + motor weakness, + disoriented (Oriented to person, but not place or time) Skin: normal color, warm/dry, no rash Laboratory Results Results Past 24 Hours Test 03/07/17 17:03 03/07/17 18:13 03/07/17 21:45 Range/Units White Blood Count 9.84 4.8-10.8 K/uL Red Blood Count 4.25 4.2-5.4 M/uL Hemoglobin 13.4 12.0-16.0 g/dL Hematocrit 39.2 37-47 % Mean Corpuscular Volume 92.2 80-100 fL Mean Corpuscular Hemoglobin 31.5 25-34 pg Mean Corpuscular Hemoglobin Concent 34.2 32-36 g/dl Platelet Count 218 130-400 K/uL Mean Platelet Volume 9.3 7.4-10.4 fL Neutrophils (%) (Auto) 92.2 % Lymphocytes (%) (Auto) 2.4 % Monocytes (%) (Auto) 4.9 % Eosinophils (%) (Auto) 0.1 % Basophils (%) (Auto) 0.1 % Neutrophils # (Auto) 9.07 1.4-6.5 K/uL Lymphocytes # (Auto) 0.24 1.2-3.4 K/uL Monocytes # (Auto) 0.48 0.11-0.59 K/uL Eosinophils # (Auto) 0.01 0-0.5 K/uL Basophils # (Auto) 0.01 0-0.2 K/uL RDW Standard Deviation 42.3 36.4-46.3 fL RDW Coefficient of Variation 12.6 11.5-14.5 % Immature Granulocyte % (Auto) 0.3 % Immature Granulocyte # (Auto) 0.03 0.00-0.02 K/uL Sodium Level 137 136-145 mmol/L Potassium Level 3.9 3.5-5.1 mmol/L Chloride Level 104 98-107 mmol/L Carbon Dioxide Level 26 21-32 mmol/L Anion Gap 7.0 3-11 mmol/L Blood Urea Nitrogen 8 7-18 mg/dl Creatinine 0.60 0.60-1.20 mg/dl Est Creatinine Clear Calc Drug Dose 95.7 ml/min Estimated GFR () 136.9 Estimated GFR (Non- 118.1 BUN/Creatinine Ratio 13.2 10-20 Random Glucose 173 70-99 mg/dl Calcium Level 8.1 8.5-10.1 mg/dl Phosphorus Level 3.1 2.5-4.9 mg/dl Magnesium Level 2.0 1.8-2.4 mg/dl Thyroid Stimulating Hormone (TSH) 1.560 0.300-4.500 uIu/ml Urine Color YELLOW Urine Appearance CLEAR CLEAR Urine pH 6.0 4.5-7.5 Urine Specific [place] 1.027 1.000-1.030 Urine Protein 2+ NEG Urine Glucose (UA) NEG NEG Urine Ketones NEG NEG Urine Occult Blood NEG NEG Urine Nitrite NEG NEG Urine Bilirubin NEG NEG Urine Urobilinogen NEG NEG Urine Leukocyte Esterase NEG NEG Urine WBC (Auto) 1-5 0-5 /hpf Urine RBC (Auto) 0-4 0-4 /hpf Urine Hyaline Casts (Auto) 1-5 0-5 /lpf Urine Epithelial Cells (Auto) >30 0-5 /lpf Urine Bacteria (Auto) 3+ NEG Urine Renal Epithelial Cells 0-5 0-5 /lpf Urine Test NEG NEG Total Bilirubin 0.3 0.2-1 mg/dl Direct Bilirubin < 0.1 0-0.2 mg/dl Aspartate Amino Transf (AST/SGOT) 9 15-37 U/L Alanine Aminotransferase (ALT/SGPT) 21 12-78 U/L Alkaline Phosphatase 86 45-117 U/L Total Protein 6.0 6.4-8.2 gm/dl Albumin 3.7 3.4-5.0 gm/dl Microbiology Results 03/07/17 Urine Culture - Preliminary, Resulted PIN-POINT GROWTH PRESENT, REINCUBATING. Assessment and Plan 36 year old female with multiple sclerosis and known seizure disorder presents to the ER with prolonged 29 minute seizure requiring 10mg diazepam rectally, after missing her morning anti-seizure medications Seizure - Seizure precautions - 24 hour monitoring to assess if potential subtherapeutic dosing of anti- seizure medication vs. attributable to single missed dose, by watching for seizure recurrence despite continuation of medication. - Continue home meds: Lamictal, Keppra, and gabapentin - Drugs levels pending - Zofran for nausea and Boost diet supplementation as tolerated - Will follow up with Dr. Vega, neurologist as outpatient Multiple sclerosis - Continue Gilenya 0.5mg daily qAM Hypothyroidism - Continue levothyroxine Depression/anxiety - Continue citalopram Code: Full Resuscitation Resident Physician Supervision Note: I interviewed and examined the patient. Discussed with Dr. Ravi and agree with findings and plan as documented in the note. Any exceptions or clarifications are listed here: None Documented By: Song Lopes no further seizures, shaky, scared it's going to happen again discussions w pt and mother anastasia noted nad breathing unlabored no pallor or icterus seizure disorder w status epilepticus - now resolved. observe further since seizure was so long lasting -hopefully home tomorrow -continue regular meds Continued [facility] stay due to: other (Monitoring for 24 hours) Discharge planning: home Resident Tracking Resident Involvement: Resident Care Provided Care Provided: Adult Hospital Medicine
[2017-03-08] MEDS ORDERED: ONDANSETRON 4MG OD TAB PO PRN (13:15)
[2017-03-08 15:54] VITALS: BP 106/73; PULSE 87; TEMP 37; O2SAT 99
[2017-03-08] MEDS ORDERED: BOOST PLUS VANILLA PO SCH ×2 (20:00)
[2017-03-08 23:37] VITALS: BP 109/73; PULSE 82; TEMP 37.1; O2SAT 97
[2017-03-09 07:20] VITALS: BP 116/77; PULSE 76; TEMP 36.9; O2SAT 97
[2017-03-09] MEDS: CITALOPRAM 40 MG TAB PO SCH (08:53)
[2017-03-09] MEDS: CHOLECALCIFEROL 1000 INTER.UNIT TAB PO SCH (08:53)
[2017-03-09] MEDS: GABAPENTIN 800 MG TAB PO SCH (08:54)
[2017-03-09] MEDS: CYANOCOBALAMIN 500 MCG TAB (VIT B-12) PO SCH (08:54)
[2017-03-09] MEDS: LEVETIRACETAM 250 MG TAB PO SCH (08:55)
[2017-03-09] MEDS ORDERED: ZFRODT4HP PO (10:21)
--- NOTE | 2017-03-09 10:27 | Discharge Instructions ---
Discharge Instructions Date of Service Mar 09, 2017. Admission Reason for Admission: Grand Mal Convulsion, Ms Discharge Discharge Diagnosis / Problem: Prolonged seizure Discharge Goals Goal(s): Decrease discomfort, Diagnostic testing, Therapeutic intervention Activity Recommendations Activity Limitations: resume your previous activity . Instructions / Follow-Up Instructions / Follow-Up You were admitted to the hospital with a prolonged seizure lasting for 29 minutes requiring 10mg diazepam rectally for termination, after missing your morning dose of medications. In the ER, you were given a loading dose of Keppra and your usual Lamictal dose. You were kept for observation in the hospital with seizure precautions. However, upon resuming your medication, you have had no further seizure activity. Upon discharge, continue all your seizure medication vigilantly. Your Keppra and Lamictal doses are pending on discharge. You made add a mid day Lamictal dose of 25mg to help keep your levels in a good range. Follow up with your neurologist in the next week is recommended. Dr. Vega will be able to relay the level results to you. A small supply of Zofran has been prescribed to use as needed for nausea. You may continue all your other home medications as prescribed. Thank you for allowing us to participate in your care. Current Hospital Diet Patient's current hospital diet: Regular Diet Discharge Diet Recommended Diet: Regular Diet Pending Studies Studies pending at discharge: yes List of pending studies: Lamotrigine and levetiracetam Medical Emergencies . Who to Call and When: Medical Emergencies: If at any time you feel your situation is an emergency, please call 911 immediately. . Non-Emergent Contact Non-Emergency issues call your: Primary Care Provider, Neurologist . . "Provider Documentation" section prepared by Belinda Ravi. . VTE Core Measure Inpt VTE Proph given/why not?: Treatment not indicated
[2017-03-09 10:50] VITALS: O2SAT 97
[2017-03-09] MEDS ORDERED: LAMO25TA PO (13:20)
[2017-03-09 13:33] VITALS: BP 116/77; PULSE 76; TEMP 36.9; O2SAT 97
--- NOTE | 2017-03-09 14:03 | Discharge Summary ---
Discharge Summary Date of Service Mar 09, 2017. (Alka. Ravi MD) Discharge Summary Admission Date: Mar 07, 2017 at 22:55 Discharge Date: Mar 09, 2017 Discharge Disposition: Home Principal Diagnosis: Grand Mal seizure Problems/Secondary Diagnoses: (1) MS (multiple sclerosis) Status: Chronic (2) Seizures Status: Chronic Immunizations: Have You Had Influenza Vaccine: No History of Tetanus Vaccine?: No History of Pneumococcal: Yes History of Hepatitis B Vaccine: No (Alka. Ravi MD) Medication Reconciliation New Medications: Lamotrigine (Lamictal) 25 Mg Tab 25 MG PO DAILY for 20 Days, #20 TAB Ondansetron (Ondansetron Odt) 1 Homepack Ea 4 MG PO Q6H PRN for Nausea, #15 TAB Continued Medications: Baclofen (Lioresal) 20 Mg Tab 20 MG PO HS Cholecalciferol (Vitamin D3) 2,000 Unit Cap 1 CAP PO DAILY, CAP Citalopram (Citalopram Hydrobromide) 40 Mg Tab 40 MG PO QAM Cyanocobalamin (Vitamin B-12) 1,000 Mcg Tab 1000 MCG PO DAILY, TAB Diazepam (Anticonvulsant) (Diazepam) 10 Mg Gel 10 MG RE PRN Docusate Sodium (Docusate Sodium) 100 Mg Cap 100 MG PO DAILY PRN for Constipation Fingolimod Hcl (Gilenya) 0.5 Mg Cap 0.5 MG PO DAILY Gabapentin (Gabapentin) 800 Mg Tab 2 TAB PO BID Lamotrigine (Lamictal) 200 Mg Tab 350 MG PO DAILY +150MG TAB Lamotrigine (Lamictal) 150 Mg Tab 1 TAB PO DAILY +200MG TAB Levetiracetam (Keppra) 750 Mg Tab 1500 MG PO BID Levothyroxine Sodium (Levothyroxine Sodium) 50 Mcg Tab 50 MCG PO DAILY Lorazepam (Ativan) 1 Mg Tab 0.25 MG PO, TAB Methocarbamol (Robaxin) 500 Mg Tab 500 MG PO HS PRN for Muscle Spasms, TAB Discharge Exam Patient doing well, she has been seizure free since admission. Her only complaint is fatigue from poor sleep in hospital. She otherwise states her nausea has improved and the pain in her tongue is slightly better. She denies chest pain, dyspnea, abdominal pain, leg swelling. ROS unremarkable except as noted above. Physical Exam: General Appearance: WD/WN, no apparent distress, + pertinent finding ( diffuse body muscle spasms) Eyes: normal inspection ENT: hearing grossly normal Neck: supple, no adenopathy Respiratory/Chest: lungs clear, normal breath sounds, no respiratory distress, no accessory muscle use Cardiovascular: regular rate, rhythm, no edema, no murmur, normal peripheral pulses Abdomen / GI: normal bowel sounds, non tender, soft Extremities: no calf tenderness, normal capillary refill, no pedal edema Neurologic/Psychiatric: alert, normal mood/affect, oriented x 3 Skin: normal color, warm/dry, no rash (Alka. Ravi MD) Hospital Course Admitted to the hospital with a prolonged seizure lasting for 29 minutes requiring 10mg diazepam rectally for termination, after missing your morning dose of medications. In the ER, was given a loading dose of Keppra and your usual Lamictal dose. Kept for observation in the hospital with seizure precautions. However, no further seizure activity with continuation of seizure medications. Upon discharge, recommend continuation of all your seizure medication vigilantly. Keppra and Lamictal doses are pending on discharge. Added mid day Lamictal dose of 25mg to help keep your levels in a good range, as noted to have low levels previously. Follow up with your neurologist in the next week is recommended. Also recommend earlier use of diazepam in future seizures. A small supply of Zofran has been prescribed to use as needed for nausea. Smoking cessation hihly encouraged. Advised to continue all other home medications as prescribed. Total Time Spent: Less than 30 minutes This includes examination of the patient, discharge planning, medication reconciliation, and communication with other providers. (Alka. Ravi MD) Resident Physician Supervision Note: I interviewed and examined the patient. Discussed with Dr. Ravi and agree with findings and plan as documented in the note. Any exceptions or clarifications are listed here: None Documented By: Song Lopes no further seizures feeling OK about going home, mother very rationally asks if since her last several lamictal levels were borderline low to slightly low, could additional dosing be given at least until levels back and ongoing neurology f/u vitals noted nad breathing unlabored less tremulous than before seizure disorder w status epilepticus -agree w additional lamictal for now - additional 25mg mid day -neurology f/u ideally this week -sooner use of rectal diazepam if seizures again -smoke cessation -stable for home / comfortable w going home (Song Lopes D.O.) Discharge Instructions Please refer to the electronic Patient Visit Report (Discharge Instructions) for additional information. (Alka. Ravi MD) Additional Copies To Arsen Vega M.D.
== END 2017-03-09 13:36 | disposition home or self-care (01) ==
LOC: EDBD 15:19 → C.EDA 15:19 → C.MS4W 22:55 → ENRESERV 23:32
PROVIDERS: ADMIT Hospitalist; ATTEND Hospitalist
DX: G40.409 Other generalized epilepsy and epileptic syndromes, not intractable, without status epilepticus (principal); G35 Multiple sclerosis; Z98.890 Other specified postprocedural states; Z82.49 Family history of ischemic heart disease and other diseases of the circulatory system; Z82.0 Family history of epilepsy and other diseases of the nervous system; Z79.899 Other long term (current) drug therapy; Z88.0 Allergy status to penicillin; Z88.1 Allergy status to other antibiotic agents

== ENCOUNTER 2017-05-12 11:51 | Emergency (ER) | payer OTHER ==
[~2017-05-12] VITALS: Ht 172.7 cm; Wt 48.1 kg
[~2017-05-12 11:51] MED LIST changes: +CHOL2000 PO; +CYAN10005 PO; +DIAZ10GE RE; -GABA800T PO; +LAMO150T PO; +LAMO200T35 PO; -LAMO200T38 PO; -LAMO25TA PO; +METH500T37 PO; +NRN800 PO; -SRQ25 PO; +ZFRODT4HP PO
[2017-05-12 11:55] VITALS: Ht 172.7 cm; Wt 48.1 kg
[2017-05-12] MEDS ORDERED: ONDANSETRON INJ 2 MG/ML 2 ML VIAL IV STA (12:13)
--- NOTE | 2017-05-12 12:18 | EMERGENCY ROOM VISIT NOTE ---
History Report prepared by Jordyn: Adrianne Burks Under the Supervision of: Dr. Vicente Pedraza M.D. First contact with patient: 12:05 Chief Complaint: SEIZURE Stated Complaint: SEIZURES Nursing Triage Summary: pt presents to ed via als from home s/p seizure. pt hx of ms and seizures. family stated to ems that pt had grand mal seizure lasting approx 4-5 min. then having an absent type seizure lasting 10min. ems states that pt was confused upon arrival. pt alert and oriented at present. pt c/o nausea at present. bsg in route was 124. family stated to ems that pt is not acting like she normally does after a seizure History of Present Illness The patient is a 36 year old female who presents to the Emergency Room by EMS with complaints of episode seizure occurring just prior to arrival. Per nursing note, the patient's family stated the patient had a Grand Mal seizure lasting about 4-5 minutes. They report the patient then had an "absent type" seizure lasting about 10 minutes. EMS reports the patient was confused upon arrival. The patient has a history of seizures and MS. The patient denies missing any of her seizure medication. She states she has been eating normally. She reports having nausea this morning but denies any abdominal pain or vomiting. She denies any chance of Source of History: patient Onset: just prior to arrival Position: other (global) Quality: other (seizure) Timing: other (episode) Associated Symptoms: + nausea, No vomiting, No abdominal pain Review of Systems See HPI for pertinent positives & negatives. A total of 10 systems reviewed and were otherwise negative. Past Medical & Surgical Medical Problems: (1) Altered mental status (2) Expressive aphasia (3) Expressive aphasia (4) Grand mal convulsion (5) MS (multiple sclerosis) (6) MS (multiple sclerosis) (7) Seizures (8) Seizures (9) Sprain of knee (10) Sprain of knee (11) Status epilepticus Surgical Problems: (1) History of knee surgery Family History FHx: hypertension FHx: seizures Social History Smoking Status: Unknown if Ever Smoked Alcohol Use: none Drug Use: marijuana Marital Status: single Housing Status: lives with family Occupation Status: disabled Current/Historical Medications Scheduled Cholecalciferol (Vitamin D3), 2,000 CAP PO DAILY Citalopram (Citalopram Hydrobromide), 40 MG PO QAM Cyanocobalamin (Vitamin B-12), 1,000 MCG PO DAILY Fingolimod Hcl (Gilenya), 0.5 MG PO DAILY Gabapentin (Gabapentin), 1,600 MG PO BID Lamotrigine (Lamictal), 400 MG PO BID Levetiracetam (Keppra), 750 MG PO BID Levothyroxine Sodium (Levothyroxine Sodium), 50 MCG PO DAILY Scheduled PRN Diazepam (Anticonvulsant) (Diazepam Rectal Gel), 1 APPLN SD UD PRN for CONVULSIVE SEIZURE Lorazepam (Ativan), 0.5 TAB PO DAILY PRN for PANIC ATTACKS Methocarbamol (Robaxin), 500 MG PO HS PRN for Muscle Spasms Allergies Coded Allergies: Penicillins (Verified Allergy, Mild, 05/12/17) Clindamycin (Verified Adverse Reaction, Severe, NAUSEA/VOMITING, 05/12/17) Rice (Verified Adverse Reaction, Unknown, vomiting, 05/12/17) Physical Exam Vital Signs Date Time Temp Pulse Resp B/P (MAP) Pulse Ox O2 Delivery O2 Flow Rate FiO2 05/12/17 15:05 98 18 125/72 95 05/12/17 12:42 98 19 128/74 95 Room Air 05/12/17 12:40 95 Room Air 05/12/17 12:40 95 Room Air 05/12/17 12:40 95 Room Air 05/12/17 12:14 96 05/12/17 11:55 104 20 132/77 96 Room Air Physical Exam GENERAL: Patient is a healthy-appearing well-nourished female HEAD: Normocephalic atraumatic EYES: Ocular movements intact pupils equal and react to light OROPHARYNX mucous membranes are moist no exudates present no erythema or edema present NECK: Supple no nuchal rigidity CHEST: Good equal expansion LUNGS: Clear and equal to auscultation CARDIAC: Normal S1 and S2 ABDOMEN: Soft nontender no guarding BACK: No CVA tenderness EXTREMITIES: No pain upon palpation normal muscle strength in all groups no clubbing cyanosis or edema NEURO: Patient is following commands and answering questions appropriately. Alert and oriented x3 Cranial Nerves 2-12 grossly intact Medical Decision & Procedures Laboratory Results 05/12/17 13:02 Red Blood Count 4.84, Mean Corpuscular Volume 93.2, Mean Corpuscular Hemoglobin 32.0, Mean Corpuscular Hemoglobin Concent 34.4, Mean Platelet Volume 9.1, Neutrophils (%) (Auto) 90.9, Lymphocytes (%) (Auto) 3.4, Monocytes (%) (Auto) 5.5, Eosinophils (%) (Auto) 0.0, Basophils (%) (Auto) 0.2, Neutrophils # (Auto) 5.13, Lymphocytes # (Auto) 0.19, Monocytes # (Auto) 0.31, Eosinophils # (Auto) 0.00, Basophils # (Auto) 0.01 05/12/17 13:02 Test 05/12/17 13:02 05/12/17 15:32 White Blood Count 5.64 K/uL (4.8-10.8) Red Blood Count 4.84 M/uL (4.2-5.4) Hemoglobin 15.5 g/dL (12.0-16.0) Hematocrit 45.1 % (37-47) Mean Corpuscular Volume 93.2 fL (80-100) Mean Corpuscular Hemoglobin 32.0 pg (25-34) Mean Corpuscular Hemoglobin Concent 34.4 g/dl (32-36) Platelet Count 253 K/uL (130-400) Mean Platelet Volume 9.1 fL (7.4-10.4) Neutrophils (%) (Auto) 90.9 % Lymphocytes (%) (Auto) 3.4 % Monocytes (%) (Auto) 5.5 % Eosinophils (%) (Auto) 0.0 % Basophils (%) (Auto) 0.2 % Neutrophils # (Auto) 5.13 K/uL (1.4-6.5) Lymphocytes # (Auto) 0.19 K/uL (1.2-3.4) Monocytes # (Auto) 0.31 K/uL (0.11-0.59) Eosinophils # (Auto) 0.00 K/uL (0-0.5) Basophils # (Auto) 0.01 K/uL (0-0.2) RDW Standard Deviation 42.6 fL (36.4-46.3) RDW Coefficient of Variation 12.6 % (11.5-14.5) Immature Granulocyte % (Auto) 0.0 % Immature Granulocyte # (Auto) 0.00 K/uL (0.00-0.02) Prothrombin Time 10.3 SECONDS (9.0-12.0) Prothromb Time International Ratio 1.0 (0.9-1.1) Activated Partial Thromboplast Time 24.4 SECONDS (21.0-31.0) Partial Thromboplastin Ratio 0.9 Anion Gap 5.0 mmol/L (3-11) Est Creatinine Clear Calc Drug Dose 89.0 ml/min Estimated GFR () 132.0 Estimated GFR (Non- 113.9 BUN/Creatinine Ratio 9.4 (10-20) Calcium Level 9.1 mg/dl (8.5-10.1) Phosphorus Level 3.3 mg/dl (2.5-4.9) Magnesium Level 2.1 mg/dl (1.8-2.4) Thyroid Stimulating Hormone (TSH) 0.463 uIu/ml (0.300-4.500) Urine Color YELLOW Urine Appearance TURBID (CLEAR) Urine pH 6.5 (4.5-7.5) Urine Specific [place] 1.028 (1.000-1.030) Urine Protein TRACE (NEG) Urine Glucose (UA) NEG (NEG) Urine Ketones TRACE (NEG) Urine Occult Blood NEG (NEG) Urine Nitrite NEG (NEG) Urine Bilirubin NEG (NEG) Urine Urobilinogen NEG (NEG) Urine Leukocyte Esterase MODERATE (NEG) Urine WBC (Auto) 5-10 /hpf (0-5) Urine RBC (Auto) 5-10 /hpf (0-4) Urine Hyaline Casts (Auto) 5-10 /lpf (0-5) Urine Epithelial Cells (Auto) >30 /lpf (0-5) Urine Bacteria (Auto) 4+ (NEG) Urine Renal Epithelial Cells /lpf (0-5) Urine Crystals CALCIUM OXALATE (NONE Labs reviewed by ED physician. Medications Administered Medications (Trade) Dose Ordered Sig/Dinesh Route Start Time Stop Time Status Last Admin Dose Admin Ondansetron HCl (Zofran Inj) 4 mg NOW STAT IV 05/12/17 12:13 05/12/17 12:14 DC 05/12/17 12:38 4 MG ED Course 1208: Past medical records reviewed. The patient was evaluated in room B12B. A complete history and physical examination was performed. 1213: Ordered Zofran Inj 4 mg IV. 1403: I discussed the patient's case with Dr. Zimmer[facility]. She said to increase the patient's Keppra. 1407: Mother at bedside. I updated the patient on Dr. Zimmer's recommendation. Mother refused to increase the patients Keppra. 1455: Upon reexamination the patient is resting comfortably. I discussed results and treatment plan with the patient. She verbalizes agreement and understanding. The patient is ready for discharge. Medical Decision Differential diagnosis: Etiologies such as infection, hypoglycemia, electrolyte abnormalities, cardiac sources, intracerebral event, trauma, toxicologic, neurologic, as well as others were entertained. This is a 36-year-old female who presents emergency department after 2 breakthrough seizures in the past 24 hours. The patient follows up with neurology. She has no evidence of meningitis or encephalitis on examination and has returned back to her baseline. Based on this and knowing the effects of radiation exposure we felt that the patient did not require CAT scan of the head. She was given Zofran for nausea. I do feel that the patient is well enough that she can be discharged home. I did discuss bumping up her Keppra medication with neurology however the patient's mother wishes to hold off on bumping up her Keppra. They're going to follow-up with neurology. Medication Reconcilliation Current Medication List: was personally reviewed by me Blood Pressure Screening Patient's blood pressure: Normal blood pressure Consults Time Called: 1401 Consulting Physician: Dr. Lui Neurology Returned Call: 1403 I discussed the patient's case with Dr. Lui Neurology. She said to increase the patient's Keppra. Impression Primary Impression: seizure, confusion episode Scribe Attestation The scribe's documentation has been prepared under my direction and personally reviewed by me in its entirety. I confirm that the note above accurately reflects all work, treatment, procedures, and medical decision making performed by me. Departure Information Dispostion Home / Self-Care Referrals RV. Medellin MD (PCP) Forms HOME CARE DOCUMENTATION FORM, IMPORTANT VISIT INFORMATION Patient Instructions ED Seizure Recurrent, My [facility] Additional Instructions Follow up with Dr Vega's office You have been examined and treated today on an emergency basis only. This is not a substitute for, or an effort to provide, complete comprehensive medical care. It is impossible to recognize and treat all injuries or illnesses in a single emergency department visit. It is therefore important that you follow up closely with Dr Freed. Call as soon as possible for an appointment. Thank you for your time and consideration. I look forward to speaking with you again soon. Please don't hesitate to call us if you have any questions.
[2017-05-12 12:40] VITALS: O2SAT 95
[2017-05-12] MEDS ORDERED: DIAZ10GE2 PR (13:10)
[2017-05-12] MEDS ORDERED: LORA-741 PO (13:10)
[2017-05-12 13:25] LABS: BASO % 0.2 %; BASO ABS # 0.01 K/uL (0-0.2); COMPLETE YES; HEMATOCRIT 45.1 % (37-47); LYMPH % 3.4 %; LYMPH ABS # 0.19 K/uL (1.2-3.4); MEAN CELL VOLUME 93.2 fL (80-100); MEAN CORPUSCULAR HGB CONC 34.4 g/dl (32-36); MEAN PLATELET VOLUME 9.1 fL (7.4-10.4); MONO % 5.5 %; NEUT % 90.9 %; PLATELET COUNT 253 K/uL (130-400); RED BLOOD COUNT 4.84 M/uL (4.2-5.4); WHITE BLOOD COUNT 5.64 K/uL (4.8-10.8)
[2017-05-12 13:33] LABS: PARTIAL THROMBOPLASTIN RATIO 0.9; PROTHROMBIN TIME (PATIENT) 10.3 SECONDS (9.0-12.0)
[2017-05-12 13:45] LABS: BUN/CREATININE RATIO 9.4 (10-20); CALCIUM 9.1 mg/dl (8.5-10.1); CREATININE 0.67 mg/dl (0.60-1.20); MAGNESIUM 2.1 mg/dl (1.8-2.4); POTASSIUM 4.1 mmol/L (3.5-5.1)
[2017-05-12 13:57] LABS: PHOSPHORUS 3.3 mg/dl (2.5-4.9); THYROID STIMULATING HORMONE 0.463 uIu/ml (0.300-4.500)
[2017-05-12 15:05] VITALS: BP 125/72; PULSE 98; O2SAT 95
[2017-05-12 15:55] LABS: URINE APPEARANCE TURBID (CLEAR); URINE BILIRUBIN NEG (NEG); URINE COLOR YELLOW; URINE EPITHELIAL CELL AUTO >30 /lpf (0-5); URINE NITRITE NEG (NEG); URINE PH 6.5 (4.5-7.5); URINE SPECIFIC GRAVITY 1.028 (1.000-1.030); UROBILINOGEN NEG (NEG)
[2017-05-12 15:59] LABS: MANUAL MICROSCOPIC REQUIRED? NO; REVIEW REQ? YES
== END 2017-05-12 15:11 | disposition home or self-care (01) ==
LOC: EDBD 11:51 → C.EDB 11:52
DX: R56.9 Unspecified convulsions (principal); R41.0 Disorientation, unspecified; G35 Multiple sclerosis; Z98.890 Other specified postprocedural states; Z82.49 Family history of ischemic heart disease and other diseases of the circulatory system; Z82.0 Family history of epilepsy and other diseases of the nervous system; Z79.899 Other long term (current) drug therapy

== ENCOUNTER → 2017-06-30 | Outpatient (CLI) | payer OTHER ==
[~2017-06-30] MED LIST changes: -ATV/1 PO; -BACL20TA PO; -CLC100 PO; -DIAZ10GE RE; +DIAZ10GE2 PR; -LAMO150T PO; +LORA-741 PO; -ZFRODT4HP PO
== END | disposition home or self-care (01) ==
LOC: C.NEUR 13:15
PROVIDERS: ATTEND Psychiatry & Neurology Neurology
DX: G40.309 Generalized idiopathic epilepsy and epileptic syndromes, not intractable, without status epilepticus (principal)

== ENCOUNTER → 2017-07-29 | Outpatient (CLI) | payer OTHER ==
[2017-07-29 12:55] LABS: BASO % 0.3 %; BASO ABS # 0.01 K/uL (0-0.2); EOS % 1.3 %; EOS ABS # 0.05 K/uL (0-0.5); HEMATOCRIT 43.4 % (37-47); HEMOGLOBIN 15.2 g/dL (12.0-16.0); IG# 0.01 K/uL (0.00-0.02); LYMPH % 13.8 %; LYMPH ABS # 0.52 K/uL (1.2-3.4); MEAN CELL VOLUME 92.7 fL (80-100); MEAN CORPUSCULAR HEMOGLOBIN 32.5 pg (25-34); MONO % 11.7 %; MONO ABS # 0.44 K/uL (0.11-0.59); NEUT % 72.6 %; NEUT ABS # 2.74 K/uL (1.4-6.5); PLATELET COUNT 230 K/uL (130-400); RED CELL DISTRIBUTION WIDTH CV 12.7 % (11.5-14.5); RED CELL DISTRIBUTION WIDTH SD 42.9 fL (36.4-46.3); WHITE BLOOD COUNT 3.77 K/uL (4.8-10.8)
== END | disposition home or self-care (01) ==
LOC: C.LABSPEC 12:42
PROVIDERS: ATTEND Physician Assistant
DX: G35 Multiple sclerosis (principal)

== ENCOUNTER 2017-08-15 19:51 | Inpatient (IN) | payer OTHER ==
[~2017-08-15] VITALS: Ht 154.9 cm; Wt 47.1 kg
[2017-08-15] MEDS ORDERED: SODIUM CHLORIDE 0.9% 1000ML 1,000 ML IV STA (20:02)
[2017-08-15] MEDS ORDERED: LEVETIRACETAM IV 2,000 MG in DEXTROSE 5% 250ML 250 ML IV ONE (20:15)
--- NOTE | 2017-08-15 20:20 | DIAGNOSTIC IMAGING REPORT ---
CHEST ONE VIEW PORTABLE CLINICAL HISTORY: SEIZURE mental status change COMPARISON STUDY: 03/07/2017 FINDINGS: The bones soft tissues and hemidiaphragms are normal. The cardiomediastinal silhouette is normal. The lungs are clear. The pulmonary vasculature is normal. IMPRESSION: Negative chest. The above report was generated using voice recognition software. It may contain grammatical, syntax or spelling errors. Electronically signed by: Nitin Duncan M.D. 08/15/2017 8:19 PM Dictated Date/Time: 08/15/2017 8:19 PM
[2017-08-15] MEDS ORDERED: LMC25 PO (20:23)
[2017-08-15 20:31] LABS: ISTAT CREATININE 0.7 mg/dl (0.6-1.3); ISTAT IONIZED CALCIUM 1.12 mmol/l (1.12-1.32); ISTAT POTASSIUM 3.7 mEq/L (3.3-5.0)
[2017-08-15 20:33] LABS: INR 1.4 (0.9-1.1); PTT PATIENT 44.7 SECONDS (21.0-31.0)
--- NOTE | 2017-08-15 20:52 | DIAGNOSTIC IMAGING REPORT ---
HEAD WITHOUT CONTRAST (CT) CT DOSE: 537.48 mGy.cm HISTORY: Mental status change SEIZURE TECHNIQUE: Multiaxial CT images of the head were performed without the use of intravenous contrast. A dose lowering technique was utilized adhering to the principles of ALARA. Comparison: 01/15/2017 Findings: The paranasal sinuses and mastoid air cells are clear. Unchanged density variation of the periventricular deep white matter regions. This is been present on prior studies and is considered nonacute. Ventricular system is midline. No evidence for acute intracranial hemorrhage. No evidence of midline shift. Impression: No acute process. Chronic changes as noted. The above report was generated using voice recognition software. It may contain grammatical, syntax or spelling errors. Electronically signed by: Nitin Duncan M.D. 08/15/2017 8:51 PM Dictated Date/Time: 08/15/2017 8:50 PM
[2017-08-15 21:07] LABS: WHITE BLOOD COUNT 6.55 K/uL (4.8-10.8)
[2017-08-15 21:08] LABS: BASO % 0.2 %; BASO ABS # 0.01 K/uL (0-0.2); EOS % 0.6 %; EOS ABS # 0.04 K/uL (0-0.5); HEMATOCRIT 42.9 % (37-47); HEMOGLOBIN 14.9 g/dL (12.0-16.0); IG# 0.02 K/uL (0.00-0.02); LYMPH % 7.2 %; LYMPH ABS # 0.47 K/uL (1.2-3.4); MEAN CELL VOLUME 91.1 fL (80-100); MEAN CORPUSCULAR HEMOGLOBIN 31.6 pg (25-34); MEAN CORPUSCULAR HGB CONC 34.7 g/dl (32-36); MEAN PLATELET VOLUME 8.9 fL (7.4-10.4); MONO % 5.8 %; MONO ABS # 0.38 K/uL (0.11-0.59); NEUT % 85.9 %; NEUT ABS # 5.63 K/uL (1.4-6.5); PLATELET COUNT 250 K/uL (130-400); RED CELL DISTRIBUTION WIDTH CV 12.4 % (11.5-14.5); RED CELL DISTRIBUTION WIDTH SD 41.3 fL (36.4-46.3)
[2017-08-15] MEDS ORDERED: LORAZEPAM 0.5 MG TAB PO PRN (21:15)
[2017-08-15] MEDS ORDERED: DIAZEPAM 10 MG RECTAL GEL PR PRN (21:15)
[2017-08-15] MEDS ORDERED: METHOCARBAMOL 500 MG TAB PO PRN (21:15)
[2017-08-15 21:23] LABS: CREATININE 0.66 mg/dl (0.60-1.20); POTASSIUM 3.6 mmol/L (3.5-5.1)
[2017-08-15] MEDS ORDERED: MAGNESIUM HYDROXIDE SUSP 30 ML UDC PO PRN (21:30)
[2017-08-15] MEDS ORDERED: ONDANSETRON INJ 2 MG/ML 2 ML VIAL IV PRN (21:30)
[2017-08-15] MEDS ORDERED: ACETAMINOPHEN 325 MG TAB PO PRN (21:30)
[2017-08-15] MEDS ORDERED: ALUMINUM/MAGNESIUM/SIMETH (MAALOX MAX) 30 ML UDC PO PRN (21:30)
[2017-08-15] MEDS ORDERED: POLYETHYLENE (MIRALAX) 17 GM PACK PO PRN (21:30)
[2017-08-15 21:34] LABS: PHOSPHORUS 4.7 mg/dl (2.5-4.9)
[2017-08-15] MEDS ORDERED: LORAZEPAM 2 MG/ML 1 ML VIAL IV PRN (21:45)
[2017-08-15] MEDS ORDERED: GABA800T PO (21:52)
--- NOTE | 2017-08-15 22:18 | History and Physical ---
History & Physical Date & Time of Service: Aug 15, 2017 at 21:55 Chief Complaint: Seizure Primary Care Physician: RV. Medellin MD History of Present Illness Source: patient 36 y/o F Hx MS, seizure disorder. Presents following multiple consecutive seizures lasting > 1 hour. Per her mother at bedside, her seizure disorder has been fairly well-controlled since 03/18 when she was last admitted for status epilepticus. She did not respond initially to rectal Diazepam provided by her mother. The pt is awake but disoriented and somnolent at the time of admission and cannot recall having a seizure. She c/o neck soreness. She denies CP, SOB , nausea. Initial labs are noted for a (+) UA. The pt displays R hemiparesis at the time of admission which has apparently occurred previously following a seizure. Past Medical/Surgical History 1) Seizure disorder 2) Multiple sclerosis Family History FHx: hypertension FHx: seizures Social History The pt is care-dependent and looked after by her mother. She does not drink or smoke. Smoking Status: Never Smoker Drug Use: marijuana Marital Status: single Occupational Status: disabled Immunizations History of Influenza Vaccine: No History of Tetanus Vaccine?: No History of Pneumococcal: Yes History of Hepatitis B Vaccine: No Allergies Coded Allergies: Penicillins (Verified Allergy, Mild, 08/15/17) Clindamycin (Verified Adverse Reaction, Severe, NAUSEA/VOMITING, 08/15/17) Rice (Verified Adverse Reaction, Unknown, vomiting, 08/15/17) Home Medications Scheduled Cholecalciferol (Vitamin D3), 2,000 CAP PO DAILY Citalopram (Citalopram Hydrobromide), 40 MG PO QAM Cyanocobalamin (Vitamin B-12), 1,000 MCG PO DAILY Fingolimod Hcl (Gilenya), 0.5 MG PO DAILY Gabapentin (Gabapentin), 800 MG PO QAM Gabapentin (Neurontin), 1,200 MG PO HS Lamotrigine (Lamictal), 400 MG PO BID Lamotrigine (Lamotrigine), 1 TAB PO BID Levetiracetam (Keppra), 750 MG PO BID Levothyroxine Sodium (Levothyroxine Sodium), 50 MCG PO DAILY Methocarbamol (Robaxin), 500 MG PO HS Scheduled PRN Diazepam (Anticonvulsant) (Diazepam Rectal Gel), 1 APPLN [place] UD PRN for CONVULSIVE SEIZURE Lorazepam (Ativan), 0.5 TAB PO DAILY PRN for PANIC ATTACKS Review of Systems Obtained from pt and mother Constitutional: No fever, No chills, No sweats Eyes: No worsening of vision ENT: + problem reported (Neck soreness), No hearing loss Respiratory: No cough, No sputum, No wheezing Cardiovascular: No chest pain, No PND Abdomen: No pain, No nausea, No vomiting Musculoskeletal: + joint pain (Neck paiin) Genitourinary - Female: No dysuria, No urinary frequency, No urinary urgency Neurologic: + memory loss (shoert-term memory loss), + weakness (chronic) Psychiatric: No depression symptoms Endocrine: + fatigue Hematologic / Lymphatic: No abnormal bleeding/bruising Integumentary: No rash Allergic / Immunologic: No environmental allergies Physical Exam Vital Signs Date Time Temp Pulse Resp B/P (MAP) Pulse Ox O2 Delivery O2 Flow Rate FiO2 08/15/17 21:03 90 16 109/80 98 Room Air 08/15/17 20:30 90 18 117/85 100 Room Air 08/15/17 20:17 98 16 121/82 100 Nasal Cannula 2.0 08/15/17 20:10 89 08/15/17 20:05 99 Room Air 08/15/17 20:05 99 Room Air 08/15/17 19:54 36.9 120 22 127/79 100 Room Air General Appearance: + pertinent finding (The pt is disoriented - she answers questions appropriately but could not state her whereabouts and has no recollection of the days events. ) Head: normocephalic Eyes: normal inspection ENT: normal ENT inspection, pharynx normal Neck: supple, no JVD Respiratory/Chest: chest non-tender, lungs clear Cardiovascular: regular rate, rhythm, no edema, no gallop Abdomen/GI: normal bowel sounds, non tender, soft Back: normal inspection, no CVA tenderness Extremities/Musculoskelatal: normal inspection, no calf tenderness, normal capillary refill Neurologic/Psych: + pertinent finding (Initially with facial asymmetry - resolved during exam - she is unable to move her L arm or leh and displays generalized wekaness. She cannot ambulate at baseline due to MS.) Skin: normal color, warm/dry Diagnostics Laboratory Results Results Past 24 Hours Test 08/15/17 20:00 08/15/17 20:18 08/15/17 20:26 Range/Units White Blood Count 6.55 4.8-10.8 K/uL Red Blood Count 4.71 4.2-5.4 M/uL Hemoglobin 14.9 12.0-16.0 g/dL Hematocrit 42.9 37-47 % Mean Corpuscular Volume 91.1 80-100 fL Mean Corpuscular Hemoglobin 31.6 25-34 pg Mean Corpuscular Hemoglobin Concent 34.7 32-36 g/dl Platelet Count 250 130-400 K/uL Mean Platelet Volume 8.9 7.4-10.4 fL Neutrophils (%) (Auto) 85.9 % Lymphocytes (%) (Auto) 7.2 % Monocytes (%) (Auto) 5.8 % Eosinophils (%) (Auto) 0.6 % Basophils (%) (Auto) 0.2 % Neutrophils # (Auto) 5.63 1.4-6.5 K/uL Lymphocytes # (Auto) 0.47 1.2-3.4 K/uL Monocytes # (Auto) 0.38 0.11-0.59 K/uL Eosinophils # (Auto) 0.04 0-0.5 K/uL Basophils # (Auto) 0.01 0-0.2 K/uL RDW Standard Deviation 41.3 36.4-46.3 fL RDW Coefficient of Variation 12.4 11.5-14.5 % Immature Granulocyte % (Auto) 0.3 % Immature Granulocyte # (Auto) 0.02 0.00-0.02 K/uL Prothrombin Time 15.0 9.0-12.0 SECONDS Prothromb Time International Ratio 1.4 0.9-1.1 Activated Partial Thromboplast Time 44.7 21.0-31.0 SECONDS Partial Thromboplastin Ratio 1.7 Bedside Hemoglobin 14.3 12.0-16.0 g/dl Bedside Hematocrit 42 37-47 % Bedside Sodium 144 135-144 mEq/L Sodium Level 142 136-145 mmol/L Bedside Potassium 3.7 3.3-5.0 mEq/L Potassium Level 3.6 3.5-5.1 mmol/L Bedside Chloride 103 101-112 mEq/L Chloride Level 105 98-107 mmol/L Carbon Dioxide Level 29 21-32 mmol/L Bedside Total CO2 29 24-31 mEq/l Anion Gap 8.0 3-11 mmol/L Bedside Blood Urea Nitrogen 7 7-18 mg/dl Blood Urea Nitrogen 8 7-18 mg/dl Creatinine 0.66 0.60-1.20 mg/dl Bedside Creatinine 0.7 0.6-1.3 mg/dl Est Creatinine Clear Calc Drug Dose 88.5 ml/min Estimated GFR () 132.6 Estimated GFR (Non- 114.4 BUN/Creatinine Ratio 11.9 10-20 Bedside Glucose (other) 103 70-99 mg/dl Random Glucose 98 70-99 mg/dl Calcium Level 9.0 8.5-10.1 mg/dl Bedside Ionized Calcium (Garrett) 1.12 1.12-1.32 mmol/l Phosphorus Level 4.7 2.5-4.9 mg/dl Magnesium Level 2.3 1.8-2.4 mg/dl Thyroid Stimulating Hormone (TSH) 2.940 0.300-4.500 uIu/ml Urine Color YELLOW Urine Appearance TURBID CLEAR Urine pH 6.5 4.5-7.5 Urine Specific [place] 1.026 1.000-1.030 Urine Protein NEG NEG Urine Glucose (UA) NEG NEG Urine Ketones TRACE NEG Urine Occult Blood NEG NEG Urine Nitrite NEG NEG Urine Bilirubin NEG NEG Urine Urobilinogen NEG NEG Urine Leukocyte Esterase MODERATE NEG Urine WBC (Auto) 1-5 0-5 /hpf Urine RBC (Auto) 0-4 0-4 /hpf Urine Hyaline Casts (Auto) 1-5 0-5 /lpf Urine Epithelial Cells (Auto) 20-30 0-5 /lpf Urine Bacteria (Auto) 3+ NEG Microbiology Results 08/15/17 Urine Culture, Received Pending Diagnostic Radiology CT head: The paranasal sinuses and mastoid air cells are clear. Unchanged density variation of the periventricular deep white matter regions. This is been present on prior studies and is considered nonacute. Ventricular system is midline. No evidence for acute intracranial hemorrhage. No evidence of midline shift. Impression Assessment and Plan 36 y/o F Hx MS, seizure disorder. Presents following multiple consecutive seizures lasting > 1 hour. Per her mother at bedside, her seizure disorder has been fairly well-controlled since 03/18 when she was last admitted for status epilepticus. The pt is awake but disoriented and somnolent at the time of admission and cannot recall having a seizure. She c/o neck soreness. She denies CP, SOB, nausea. Initial labs are noted for a (+) UA. The pt displays R hemiparesis at the time of admission which has apparently occurred previously following a seizure. 1) Status epilepticus - prolonged, consecutive seizures - Provided with additional Keppra. To be evaluated by neuro for medication adjustment. Lamictal levels sent. Pt will be monitored on telemetry - PRN Lorazepam provided. Cont Keppra, Lamictal, Connie. 2) MS - will continue daily Fingolomid. 3) L hemiparesis - cerebrovascular etiology is not likely and due to seizures and her post-ictal state, she is not a candidate for TPA. Considering her MS, we will btain an MRI with and without contrast. Full code - SCDs Total time for this admit including review of labs, meds, imaging, records - diacussion with pt, neurologist, ER attending - 38 min Resuscitation Status VTE Prophylaxis Will order VTE Prophylaxis: Yes
[2017-08-15 22:42] VITALS: BP 122/80; PULSE 101; TEMP 37; O2SAT 97; Ht 154.9 cm; Wt 47.1 kg
[2017-08-15] MEDS ORDERED: LORAZEPAM INJ 1 MG in SYRINGE 0.5 ML IV SCH (23:00)
[2017-08-15] MEDS ORDERED: CEFTRIAXONE SOD INJ 1 GM in DEXTROSE 5% ADD-VANTAGE 50ML 50 ML IV SCH (23:00)
--- NOTE | 2017-08-15 23:20 | EMERGENCY ROOM VISIT NOTE ---
History Report prepared by Jordyn: Josias Meza Under the Supervision of: Dr. Niko Rene M.D. First contact with patient: 19:42 Chief Complaint: SEIZURE Stated Complaint: SEIZURE History of Present Illness The patient is a 36 year old female with a history of seizure disorder who presents to the Emergency Room via EMS with complaints of persistent seizure activity that started around an hour and a half ago. Per EMS, the patient started getting an aura around 1818 this evening. The patient was then given 0.5 mg Ativan from her mother, and then the patient went into a tonoclonic seizure. Per EMS, the patient has been seizing ever since. The patient's mother then gave the patient 10 rectal Valium, and called 911. Upon EMS arrival, the patient was still seizing, and has been given 5 more Valium by EMS. The patient' s sugars were 123 upon EMS arrival. The patient's seizure activity has been noted to be slowing down. History limited secondary to patient's medical acuity and mental status. Source of History: EMS History Limited By: other (medical acuity) Onset: Around an hour and a half ago Position: other (globa) Symptom Intensity: given 15 of Valium Quality: other (seizure) Timing: other (persistent) Note: Associated symptoms: Aura before seizure started. Review of Systems ROS limited secondary to patient's medical acuity. Past Medical & Surgical Medical Problems: (1) Altered mental status (2) Expressive aphasia (3) Expressive aphasia (4) Grand mal convulsion (5) MS (multiple sclerosis) (6) MS (multiple sclerosis) (7) Seizures (8) Seizures (9) Sprain of knee (10) Sprain of knee (11) Status epilepticus Surgical Problems: (1) History of knee surgery Family History FHx: hypertension FHx: seizures Social History Marital Status: single Housing Status: lives with family Occupation Status: disabled Current/Historical Medications Scheduled Cholecalciferol (Vitamin D3), 2,000 CAP PO DAILY Citalopram (Citalopram Hydrobromide), 40 MG PO QAM Cyanocobalamin (Vitamin B-12), 1,000 MCG PO DAILY Fingolimod Hcl (Gilenya), 0.5 MG PO DAILY Gabapentin (Gabapentin), 800 MG PO QAM Gabapentin (Neurontin), 1,200 MG PO HS Lamotrigine (Lamictal), 400 MG PO BID Lamotrigine (Lamotrigine), 1 TAB PO BID Levetiracetam (Keppra), 750 MG PO BID Levothyroxine Sodium (Levothyroxine Sodium), 50 MCG PO DAILY Methocarbamol (Robaxin), 500 MG PO HS Scheduled PRN Diazepam (Anticonvulsant) (Diazepam Rectal Gel), 1 APPLN [place] UD PRN for CONVULSIVE SEIZURE Lorazepam (Ativan), 0.5 TAB PO DAILY PRN for PANIC ATTACKS Allergies Coded Allergies: Penicillins (Verified Allergy, Mild, 08/15/17) Clindamycin (Verified Adverse Reaction, Severe, NAUSEA/VOMITING, 08/15/17) Rice (Verified Adverse Reaction, Unknown, vomiting, 08/15/17) Physical Exam Vital Signs Date Time Temp Pulse Resp B/P (MAP) Pulse Ox O2 Delivery O2 Flow Rate FiO2 08/15/17 21:30 100 18 105/64 97 Room Air 08/15/17 21:03 90 16 109/80 98 Room Air 08/15/17 20:30 90 18 117/85 100 Room Air 08/15/17 20:17 98 16 121/82 100 Nasal Cannula 2.0 08/15/17 20:10 89 08/15/17 20:05 99 Room Air 08/15/17 20:05 99 Room Air 08/15/17 19:54 36.9 120 22 127/79 100 Room Air Physical Exam GENERAL: Altered sensorium, obtunded, thin appearing, mild distress. HENT: Normocephalic, atraumatic. Oropharynx unremarkable. EYES: Normal conjunctiva. Sclera non-icteric. NECK: Supple. No nuchal rigidity. FROM. No masses. RESPIRATORY: Clear to auscultation. No wheezes. No rales. Normal respiratory effort. CARDIAC: Borderline tachycardic rate. Normal rhythm. No murmurs. No rubs. Extremities warm and well perfused. Pulses equal. No JVD. GI: Soft, non-distended. No tenderness to palpation. No rebound or guarding. No masses. RECTAL: Deferred. MUSCULOSKELETAL: Atraumatic. Chest examination reveals no tenderness. The back is symmetrical on inspection without obvious abnormality. There is no CVA tenderness to palpation. No joint edema. LOWER EXTREMITIES: Calves are equal size bilaterally and non-tender. No edema. No discoloration. NEURO: Altered sensorium. Opens eyes to command. Some fine tremor motions noted in upper extremities and clenching her jaw however she does open her jaw to command. Grasping to command. SKIN: No rash or jaundice noted. Medical Decision & Procedures ER Provider Diagnostic Interpretation: Radiology results as stated below per my review and radiologist interpretation: HEAD WITHOUT CONTRAST (CT) CT DOSE: 537.48 mGy.cm HISTORY: Mental status change SEIZURE TECHNIQUE: Multiaxial CT images of the head were performed without the use of intravenous contrast. A dose lowering technique was utilized adhering to the principles of ALARA. Comparison: 01/15/2017 Findings: The paranasal sinuses and mastoid air cells are clear. Unchanged density variation of the periventricular deep white matter regions. This is been present on prior studies and is considered nonacute. Ventricular system is midline. No evidence for acute intracranial hemorrhage. No evidence of midline shift. Impression: No acute process. Chronic changes as noted. The above report was generated using voice recognition software. It may contain grammatical, syntax or spelling errors. Electronically signed by: Nitin Duncan M.D. 08/15/2017 8:51 PM Dictated Date/Time: 08/15/2017 8:50 PM CHEST ONE VIEW PORTABLE CLINICAL HISTORY: SEIZURE mental status change COMPARISON STUDY: 03/07/2017 FINDINGS: The bones soft tissues and hemidiaphragms are normal. The cardiomediastinal silhouette is normal. The lungs are clear. The pulmonary vasculature is normal. IMPRESSION: Negative chest. The above report was generated using voice recognition software. It may contain grammatical, syntax or spelling errors. Electronically signed by: Nitin Duncan M.D. 08/15/2017 8:19 PM Dictated Date/Time: 08/15/2017 8:19 PM Laboratory Results 08/15/17 20:18 Red Blood Count 4.71, Mean Corpuscular Volume 91.1, Mean Corpuscular Hemoglobin 31.6, Mean Corpuscular Hemoglobin Concent 34.7, Mean Platelet Volume 8.9, Neutrophils (%) (Auto) 85.9, Lymphocytes (%) (Auto) 7.2, Monocytes (%) (Auto) 5.8, Eosinophils (%) (Auto) 0.6, Basophils (%) (Auto) 0.2, Neutrophils # (Auto) 5.63, Lymphocytes # (Auto) 0.47, Monocytes # (Auto) 0.38, Eosinophils # (Auto) 0.04, Basophils # (Auto) 0.01 08/15/17 20:18 Test 08/15/17 19:57 08/15/17 20:00 08/15/17 20:18 08/15/17 20:26 Bedside Glucose 89 mg/dl (70-90) Prothrombin Time 15.0 SECONDS (9.0-12.0) Prothromb Time International Ratio 1.4 (0.9-1.1) Activated Partial Thromboplast Time 44.7 SECONDS (21.0-31.0) Partial Thromboplastin Ratio 1.7 White Blood Count 6.55 K/uL (4.8-10.8) Red Blood Count 4.71 M/uL (4.2-5.4) Hemoglobin 14.9 g/dL (12.0-16.0) Hematocrit 42.9 % (37-47) Mean Corpuscular Volume 91.1 fL (80-100) Mean Corpuscular Hemoglobin 31.6 pg (25-34) Mean Corpuscular Hemoglobin Concent 34.7 g/dl (32-36) Platelet Count 250 K/uL (130-400) Mean Platelet Volume 8.9 fL (7.4-10.4) Neutrophils (%) (Auto) 85.9 % Lymphocytes (%) (Auto) 7.2 % Monocytes (%) (Auto) 5.8 % Eosinophils (%) (Auto) 0.6 % Basophils (%) (Auto) 0.2 % Neutrophils # (Auto) 5.63 K/uL (1.4-6.5) Lymphocytes # (Auto) 0.47 K/uL (1.2-3.4) Monocytes # (Auto) 0.38 K/uL (0.11-0.59) Eosinophils # (Auto) 0.04 K/uL (0-0.5) Basophils # (Auto) 0.01 K/uL (0-0.2) Bedside Hemoglobin 14.3 g/dl (12.0-16.0) Bedside Hematocrit 42 % (37-47) RDW Standard Deviation 41.3 fL (36.4-46.3) RDW Coefficient of Variation 12.4 % (11.5-14.5) Immature Granulocyte % (Auto) 0.3 % Immature Granulocyte # (Auto) 0.02 K/uL (0.00-0.02) Bedside Sodium 144 mEq/L (135-144) Bedside Potassium 3.7 mEq/L (3.3-5.0) Bedside Chloride 103 mEq/L (101-112) Bedside Total CO2 29 mEq/l (24-31) Anion Gap 8.0 mmol/L (3-11) Bedside Blood Urea Nitrogen 7 mg/dl (7-18) Bedside Creatinine 0.7 mg/dl (0.6-1.3) Est Creatinine Clear Calc Drug Dose 88.5 ml/min Estimated GFR () 132.6 Estimated GFR (Non- 114.4 BUN/Creatinine Ratio 11.9 (10-20) Bedside Glucose (other) 103 mg/dl (70-99) Calcium Level 9.0 mg/dl (8.5-10.1) Bedside Ionized Calcium (Garrett) 1.12 mmol/l (1.12-1.32) Phosphorus Level 4.7 mg/dl (2.5-4.9) Magnesium Level 2.3 mg/dl (1.8-2.4) Thyroid Stimulating Hormone (TSH) 2.940 uIu/ml (0.300-4.500) Urine Color YELLOW Urine Appearance TURBID (CLEAR) Urine pH 6.5 (4.5-7.5) Urine Specific [place] 1.026 (1.000-1.030) Urine Protein NEG (NEG) Urine Glucose (UA) NEG (NEG) Urine Ketones TRACE (NEG) Urine Occult Blood NEG (NEG) Urine Nitrite NEG (NEG) Urine Bilirubin NEG (NEG) Urine Urobilinogen NEG (NEG) Urine Leukocyte Esterase MODERATE (NEG) Urine WBC (Auto) 1-5 /hpf (0-5) Urine RBC (Auto) 0-4 /hpf (0-4) Urine Hyaline Casts (Auto) 1-5 /lpf (0-5) Urine Epithelial Cells (Auto) 20-30 /lpf (0-5) Urine Bacteria (Auto) 3+ (NEG) Laboratory results reviewed by me Medications Administered Medications (Trade) Dose Ordered Sig/Dinesh Route Start Time Stop Time Status Last Admin Dose Admin Sodium Chloride 1,000 ml @ 125 mls/hr Q8H STAT IV 08/15/17 20:02 08/16/17 04:01 08/15/17 20:36 125 MLS/HR Levetiracetam 2000 mg/Dextrose 270 ml @ 999 mls/hr ONE ONCE IV 08/15/17 20:15 08/15/17 20:31 DC 08/15/17 20:30 999 MLS/HR ECG Per My Interpretation Indication: other (seizure) Rate (beats per minute): 93 Rhythm: normal sinus Findings: no acute ischemic change, no ectopy, other (poor baseline data secondary to patient's tremor) ED Course 1950: The patient was evaluated in room A1. A limited history and physical exam was performed. The patient's blood glucose is now 89. 1958: I reviewed the patient's old EMR - the patient had a visit here 4 months ago for seizure activity and was not admitted but had her Keppra increased. 2001: NSS 1000 ml @ 125 mls/hr IV. 2014: Levetiracetam 2000 mg/Dextrose 270 ml @ 999 mls/hr IV. 2019: The I-stat showed normal labs. 2032: I reevaluated the patient and her mom is here now. I updated the mother. The patient is resting comfortably. Her mother says that after she has a seizure she typically has fine tremors afterwards. 2055: I reevaluated the patient and she is more arousable but still very drowsy. 2102: I discussed the patient with Dr. Orozco - [facility] neurology - he recommended observation. 2109: Upon reexamination, the patient was resting. I discussed the test results and treatment plan with her and her mother. The patient will be evaluated for further management. 2114: Dr. Cantu ([facility] internal medicine) was notified about the patient. He will evaluate the patient for further treatment. Medical Decision Prior records/ancillary studies reviewed. Patient has had multiple visits for seizures recently. Patient placed in seizure precautions immediately upon arrival. Nursing notes reviewed and agree them. Additional history obtained from EMS and her mother. The patient's history was concerning for a possible seizure. Differential diagnosis: Etiologies such as infection, hypoglycemia, electrolyte abnormalities, cardiac sources, intracerebral event, trauma, toxicologic, neurologic, as well as others were entertained. Physical examination: As above. No signs of trauma. ER treatment provided: IV normal saline Seizure precautions IV Keppra 2 g On reassessment the patient felt better. Diagnostics interpretation by me: ECG: Normal as above The labs revealed an unremarkable CBC and chemistry panel. Urinalysis revealed no clear sign of infection. Imaging studies: Head CT and chest x-ray as above Given the patient's duration of seizure activity this was concerning for status. If finally broke after multiple doses of IV benzodiazepine. She was loaded with IV Keppra in the emergency department. She is slowly coming around and returning to baseline. No additional seizure activity noted. Consultation: A consultation was placed with the neurologist, Dr. Orozco. The case was discussed and diagnostics were reviewed. He recommended observation given the scenario and consultation was made with internal medicine. The patient was evaluated in the ER for further management. Medication Reconcilliation Current Medication List: was personally reviewed by me Blood Pressure Screening Patient's blood pressure: Normal blood pressure Consults Time Called: 2099 Consulting Physician: Dr. Orozco - [facility] neurology Returned Call: 2102 I discussed the patient with Dr. Ernesto Pablo [facility] neurology - he recommended observation. Additional Consults: Time Called: 2104 Consulted Physician: Dr. Cantu ([facility] internal medicine) Returned Call: 2114 Additional Comments: Dr. Cantu ([facility] internal medicine) was notified about the patient. He will evaluate the patient for further treatment. Impression Primary Impression: Status epilepticus Critical Care I have personally spent greater than 30 minutes of critical care time in the direct management of this patient. This includes bedside care, interpretation of diagnostic studies, and testing, discussion with consultants, patient, and family members, and other required patient management activities. This 30 minutes is in excess of all separately billable procedures. Scribe Attestation The scribe's documentation has been prepared under my direction and personally reviewed by me in its entirety. I confirm that the note above accurately reflects all work, treatment, procedures, and medical decision making performed by me. Departure Information Dispostion Being Evaluated By Hospitalist Patient Instructions My [facility]
[2017-08-15] MEDS: D5NSS + 20MEQ KCL 1,000 ML IV SCH (23:25)
[2017-08-16] MEDS ORDERED: LORAZEPAM 2 MG/ML 1 ML VIAL IV SCH
[2017-08-16] MEDS ORDERED: INFLUENZA VIRUS QUAD VACCINE 0.5 ML SYR IM. ONE (00:15)
[2017-08-16] MEDS ORDERED: INFLUENZA ADMINISTRATION CHARGE ONE (00:15)
[2017-08-16 05:01] VITALS: BP 113/71; PULSE 85
[2017-08-16 05:03] VITALS: PULSE 93; TEMP 37.2; O2SAT 98
[2017-08-16 06:06] LABS: HEMATOCRIT 38.4 % (37-47); HEMOGLOBIN 13.1 g/dL (12.0-16.0); MEAN CELL VOLUME 91.9 fL (80-100); MEAN CORPUSCULAR HEMOGLOBIN 31.3 pg (25-34); MEAN CORPUSCULAR HGB CONC 34.1 g/dl (32-36); MEAN PLATELET VOLUME 8.9 fL (7.4-10.4); PLATELET COUNT 236 K/uL (130-400); RED CELL DISTRIBUTION WIDTH CV 12.4 % (11.5-14.5); WHITE BLOOD COUNT 9.14 K/uL (4.8-10.8)
[2017-08-16 06:25] LABS: CALCIUM 8.2 mg/dl (8.5-10.1); CREATININE 0.58 mg/dl (0.60-1.20); POTASSIUM 3.9 mmol/L (3.5-5.1)
[2017-08-16] MEDS ORDERED: LEVOTHYROXINE 50 MCG TAB PO SCH (06:30)
[2017-08-16] MEDS: D5NSS + 20MEQ KCL 1,000 ML IV SCH (07:35)
[2017-08-16 07:59] VITALS: BP 108/72; PULSE 84; TEMP 37.1; O2SAT 98
[2017-08-16] MEDS ORDERED: CITALOPRAM 40 MG TAB PO SCH (09:00)
[2017-08-16] MEDS ORDERED: LEVETIRACETAM 250 MG TAB PO SCH (09:00)
[2017-08-16] MEDS ORDERED: CHOLECALCIFEROL 1000 INTER.UNIT TAB PO SCH (09:00)
[2017-08-16] MEDS ORDERED: CYANOCOBALAMIN 500 MCG TAB (VIT B-12) PO SCH (09:00)
[2017-08-16] MEDS ORDERED: GABAPENTIN 800 MG TAB PO SCH (09:00)
[2017-08-16] MEDS ORDERED: NURSING VERBAL MED ORDER ONE (10:00)
[2017-08-16] MEDS ORDERED: LORAZEPAM INJ 1 MG in SYRINGE 0.5 ML IV ONE (10:00)
--- NOTE | 2017-08-16 10:26 | Neurology Consultation ---
Neurology Consultation Date of Consultation: Aug 16, 2017. Attending Physician: Janice Farrar M.D. Primary Care Physician: RV. Medellin MD Reason for Consultation: Seizure History of Present Illness Source: patient, clinic records, hospital records The patient is a 36-year-old female with a history of seizure disorder and multiple sclerosis. She was diagnosed with MS many years ago. Her condition has been progressive and characterized by spasticity, tremor, considerable ambulatory dysfunction, cognitive dysfunction, neurogenic bladder, as well as mood and behavioral dysfunction. She has been following with Dr. Vega for the past few years although had previously followed with Dr. Hernandez. She has been taking Gilenya since January of 2016 for her multiple sclerosis. Prior to November, she had been prescribed Avonex and Copaxone. Her seizures have been poorly controlled. She has had several generalized tonic-clonic seizures over the past few months. Her seizures are sometimes preceded by an aura which the patient describes as a ringing sound in her head. She is currently taking Lamictal 425 milligrams twice daily and Keppra 750 milligrams twice daily for her seizures. She has previously been prescribed Tegretol and Depakote for her seizures. She is prescribed gabapentin for MS related spasticity. She has tried baclofen previously but indicates this medication negatively affects her gait. The patient presented to the emergency department yesterday after a prolonged tonic-clonic seizure. She was treated with Ativan and Diastat rectal gel at home. She was awake, somnolent, and disoriented in the emergency department. She was observed to have some left-sided weakness following this seizure episode. The outpatient medical record suggests she has had left-sided weakness following her seizures previously. She was admitted for further evaluation and management. An electrocardiogram revealed a normal sinus rhythm, 93 beats per minute. An EEG completed July 04, 2017 revealed occasional to frequent right temporal slowing and sharp waves.A Lamictal level from July was 5.8. A Keppra level was 12.0. Patient was loaded with Keppra 2 grams IV in the emergency department. Past Medical/Surgical History Medical Problems: (1) MS (multiple sclerosis) Status: Chronic (2) Multiple sclerosis Status: Acute (3) Seizure Status: Acute (4) Seizure, epileptic Status: Acute (5) Seizures Status: Chronic Family History There is a family history of seizure disorder Mother: HTN Grandfather: seizure disorder Social History Smoking Status: Current every day smoker Drug Use: marijuana Marital Status: single Housing Status: lives with family Occupation Status: disabled Allergies Coded Allergies: Penicillins (Verified Allergy, Mild, 08/15/17) Clindamycin (Verified Adverse Reaction, Severe, NAUSEA/VOMITING, 08/15/17) Rice (Verified Adverse Reaction, Unknown, vomiting, 08/15/17) Current Inpatient Medications Current Inpatient Medications Medications (Trade) Dose Ordered Sig/Dinesh Route Start Time Stop Time Status Last Admin Dose Admin Citalopram Hydrobromide (celeXA TAB) 40 mg QAM PO 08/16/17 09:00 09/15/17 08:59 08/16/17 07:35 40 MG Cyanocobalamin (Vitamin B-12 Tab) 1,000 mcg DAILY PO 08/16/17 09:00 09/15/17 08:59 08/16/17 07:35 1,000 MCG Gabapentin (Neurontin Tab) 1,600 mg BID PO 08/16/17 09:00 09/15/17 08:59 08/16/17 07:36 1,600 MG Lamotrigine (Lamictal Tab) 25 mg BID PO 08/16/17 09:00 09/15/17 08:59 08/16/17 07:35 25 MG Lamotrigine (Lamictal Tab) 400 mg BID PO 08/16/17 09:00 09/15/17 08:59 08/16/17 07:36 400 MG Levetiracetam (Keppra Tab) 750 mg BID PO 08/16/17 09:00 09/15/17 08:59 08/16/17 07:36 750 MG Levothyroxine Sodium (Synthroid Tab) 50 mcg DAILYBB PO 08/16/17 06:30 09/15/17 06:29 08/16/17 05:17 50 MCG Methocarbamol (Robaxin Tab) 500 mg HS PRN PO 08/15/17 21:15 09/14/17 21:14 Cholecalciferol (Vitamin D Tab) 2,000 inter.unit DAILY PO 08/16/17 09:00 09/15/17 08:59 08/16/17 07:35 2,000 INTER.UNIT Miscellaneous Information (Order Awaiting Action) 1 ea QS N/A 08/16/17 00:00 09/15/17 00:00 Acetaminophen (Tylenol Tab) 650 mg Q4H PRN PO 08/15/17 21:30 09/14/17 21:29 Al Hydrox/Mg Hydrox/Simethicone (Maalox Max Susp) 15 ml Q4H PRN PO 08/15/17 21:30 09/14/17 21:29 Magnesium Hydroxide (Milk Of Magnesia Susp) 30 ml Q12H PRN PO 08/15/17 21:30 09/14/17 21:29 Ondansetron HCl (Zofran Inj) 4 mg Q6H PRN IV 08/15/17 21:30 09/14/17 21:29 Polyethylene (Miralax Powder Packet) 17 gm DAILY PRN PO 08/15/17 21:30 09/14/17 21:29 Potassium Chloride/Dextrose/ Sod Cl 1,000 ml @ 100 mls/hr Q10H IV 08/15/17 22:30 08/16/17 18:29 08/16/17 07:35 100 MLS/HR Ceftriaxone Sodium 1 gm/ Dextrose 50 ml @ 100 mls/hr Q24H IV 08/15/17 23:00 08/20/17 22:59 08/15/17 23:25 100 MLS/HR Lorazepam (Ativan Inj) 2 mg Q4H PRN IV 08/15/17 21:45 09/14/17 21:44 Review of Systems Constitutional: Positive for fatigue Eyes: No vision loss or diplopia ENT: No hearing loss or vertigo Cardiovascular: No chest pain or palpitations Respiratory: No coughing wheezing or shortness of breath Neurological: As per history of present illness Psychiatric: As per history of present illness Musculoskeletal: As per history of present illness A full 10 point review of systems was obtained from this patient with pertinent positives and negatives described in the history of present illness and otherwise listed above. All remaining systems were reviewed and are negative. Physical Exam Vital Signs (Past 24 Hrs): Date Time Temp Pulse Resp B/P (MAP) Pulse Ox O2 Delivery O2 Flow Rate FiO2 08/16/17 08:00 Room Air 08/16/17 07:59 37.1 84 18 108/72 (84) 98 Room Air 08/16/17 05:03 37.2 93 14 98 Room Air 08/16/17 05:01 85 113/71 (85) 08/16/17 04:00 Room Air 08/16/17 00:00 Room Air 08/15/17 22:42 37.0 101 19 122/80 97 Room Air 08/15/17 22:00 106 18 115/76 96 Room Air 08/15/17 21:30 100 18 105/64 97 Room Air 08/15/17 21:03 90 16 109/80 98 Room Air 08/15/17 20:30 90 18 117/85 100 Room Air 08/15/17 20:17 98 16 121/82 100 Nasal Cannula 2.0 08/15/17 20:10 89 08/15/17 20:05 99 Room Air 08/15/17 20:05 99 Room Air 08/15/17 19:54 36.9 120 22 127/79 100 Room Air The patient is a thin, adult female. She is lying comfortably in bed. She is alert and fully oriented. Recent and remote memory intact. Attention and concentration normal. Patient is able to name objects and repeat phrases. Speech is soft and tremulous. Patient exhibits an age-appropriate fund of knowledge a normal vocabulary. Visual frost full to confrontation. Pupils equal round react to light and accommodation. Eye movements normal. There is no nystagmus. Facial sensation intact. There is normal facial strength and symmetry. Hearing intact to finger rub bilaterally. Palate elevates to midline. Shoulder shrug strength intact. Tongue protrudes to midline. Deep tendon reflexes are brisk for the arms and legs bilaterally. Plantar responses are upgoing bilaterally. There is dysmetria with finger to nose bilaterally. Patient unable to perform [id number] bilaterally due to spasticity. Ophthalmoscopic examination reveals normal-appearing optic discs and posterior segments. No papilledema or hemorrhages. Carotid pulses normal bilaterally, no bruits to auscultation. Gait and station cannot be tested. Assessment of muscle strength is limited by spasticity. Upper extremity strength is normal. Lower extremity strength cannot really be tested due to spasticity. Patient exhibits increased extensor tone of both lower limbs. There is no atrophy. The patient exhibits an intermittent dystonic tremor affecting the arms and legs which is worse with movement. Laboratory Results Past 24 Hours: 08/16/17 05:34 08/16/17 05:34 Test 08/15/17 19:57 08/15/17 20:00 08/15/17 20:18 08/15/17 20:26 Bedside Glucose 89 mg/dl (70-90) Prothrombin Time 15.0 SECONDS (9.0-12.0) Prothromb Time International Ratio 1.4 (0.9-1.1) Activated Partial Thromboplast Time 44.7 SECONDS (21.0-31.0) Partial Thromboplastin Ratio 1.7 Bedside Hemoglobin 14.3 g/dl (12.0-16.0) Bedside Hematocrit 42 % (37-47) Immature Granulocyte % (Auto) 0.3 % White Blood Count 6.55 K/uL (4.8-10.8) Red Blood Count 4.71 M/uL (4.2-5.4) Hemoglobin 14.9 g/dL (12.0-16.0) Hematocrit 42.9 % (37-47) Mean Corpuscular Volume 91.1 fL (80-100) Mean Corpuscular Hemoglobin 31.6 pg (25-34) Mean Corpuscular Hemoglobin Concent 34.7 g/dl (32-36) Platelet Count 250 K/uL (130-400) Mean Platelet Volume 8.9 fL (7.4-10.4) Neutrophils (%) (Auto) 85.9 % Lymphocytes (%) (Auto) 7.2 % Monocytes (%) (Auto) 5.8 % Eosinophils (%) (Auto) 0.6 % Basophils (%) (Auto) 0.2 % Neutrophils # (Auto) 5.63 K/uL (1.4-6.5) Lymphocytes # (Auto) 0.47 K/uL (1.2-3.4) Monocytes # (Auto) 0.38 K/uL (0.11-0.59) Eosinophils # (Auto) 0.04 K/uL (0-0.5) Basophils # (Auto) 0.01 K/uL (0-0.2) Immature Granulocyte # (Auto) 0.02 K/uL (0.00-0.02) Bedside Sodium 144 mEq/L (135-144) Bedside Potassium 3.7 mEq/L (3.3-5.0) Bedside Chloride 103 mEq/L (101-112) Bedside Total CO2 29 mEq/l (24-31) Bedside Blood Urea Nitrogen 7 mg/dl (7-18) Bedside Creatinine 0.7 mg/dl (0.6-1.3) Bedside Glucose (other) 103 mg/dl (70-99) Bedside Ionized Calcium (Garrett) 1.12 mmol/l (1.12-1.32) Phosphorus Level 4.7 mg/dl (2.5-4.9) Thyroid Stimulating Hormone (TSH) 2.940 uIu/ml (0.300-4.500) Urine Color YELLOW Urine Appearance TURBID (CLEAR) Urine pH 6.5 (4.5-7.5) Urine Specific Ponce 1.026 (1.000-1.030) Urine Protein NEG (NEG) Urine Glucose (UA) NEG (NEG) Urine Ketones TRACE (NEG) Urine Occult Blood NEG (NEG) Urine Nitrite NEG (NEG) Urine Bilirubin NEG (NEG) Urine Urobilinogen NEG (NEG) Urine Leukocyte Esterase MODERATE (NEG) Urine WBC (Auto) 1-5 /hpf (0-5) Urine RBC (Auto) 0-4 /hpf (0-4) Urine Hyaline Casts (Auto) 1-5 /lpf (0-5) Urine Epithelial Cells (Auto) 20-30 /lpf (0-5) Urine Bacteria (Auto) 3+ (NEG) Test 08/16/17 05:34 Red Blood Count 4.18 M/uL (4.2-5.4) Mean Corpuscular Volume 91.9 fL (80-100) Mean Corpuscular Hemoglobin 31.3 pg (25-34) Mean Corpuscular Hemoglobin Concent 34.1 g/dl (32-36) RDW Standard Deviation 42.0 fL (36.4-46.3) RDW Coefficient of Variation 12.4 % (11.5-14.5) Mean Platelet Volume 8.9 fL (7.4-10.4) Anion Gap 6.0 mmol/L (3-11) Est Creatinine Clear Calc Drug Dose 100.7 ml/min Estimated GFR () 138.4 Estimated GFR (Non- 119.4 BUN/Creatinine Ratio 11.7 (10-20) Calcium Level 8.2 mg/dl (8.5-10.1) Magnesium Level 1.9 mg/dl (1.8-2.4) Imaging A CT of the head completed in the emergency department is negative for hemorrhage or acute process. I reviewed the images and radiologist's interpretation of this test. . A brain MRI completed November 15, 2016 revealed extensive white matter T2 hyperintense foci, unchanged compared with a study done in August of 2015. I reviewed the images and radiologist's interpretation of this test as well. Impression This is a 36-year-old female with a history of multiple sclerosis and seizure disorder. Her multiple sclerosis is severe resulting in considerable disability. Her seizure disorder is incompletely controlled. 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 These acute issues have considerably improved. Plan Increase Keppra to 1000 milligrams b.i.d. Follow-up with brain MRI to assess for significant interval change in her demyelinating disease and exclude acute, active demyelination. Continue Gilenya. However, given the severity of this patient's multiple sclerosis it may be reasonable to consider switching her disease modifying therapy to Ocrevus. She will follow up with Dr. Vega in clinic to discuss her long-term MS management. Continue gabapentin and Robaxin at the current dosages. This patient may also be an appropriate candidate for an intrathecal baclofen pump trial given her degree of lower extremity spasticity. This evaluation could be arranged in the outpatient setting. Follow-up with Dr. Vega in outpatient clinic. Please contact me if I may be of further assistance.
[2017-08-16] MEDS ORDERED: GADAVIST IV PRN (11:15)
--- NOTE | 2017-08-16 11:19 | DIAGNOSTIC IMAGING REPORT ---
BRAIN COMBO CLINICAL HISTORY: L hemiparalysis, MS multiple sclerosis COMPARISON STUDY: 11/15/2016, 08/18/2015. TECHNIQUE: Utilizing a 1.5 Missy magnet and dedicated coil, multiplanar, multiecho imaging of the brain was performed pre and postcontrast administration. IV administration of 10 mL of Gadavist contrast was uneventful. FINDINGS: Persistent multiple foci of increased signal primarily the periventricular and deep white matter regions. This is also seen to a lesser extent involving the medial left cerebellum. Findings of mild superimposed atrophy. All findings are unchanged from the prior study. Diffusion-weighted images show no evidence for an acute ischemic focus. Postcontrast images are negative for postcontrast enhancement. Sella and parasellar regions are unremarkable. IMPRESSION: 1. No acute intracranial abnormality. 2. Extensive periventricular and deep white matter foci of altered signal unchanged from at least 2 prior studies. These are suggestive of pre-existing/stable demyelinating plaques. 3. No evidence for significant change compared to the prior study. 4. No abnormal postcontrast enhancement. The above report was generated using voice recognition software. It may contain grammatical, syntax or spelling errors. Electronically signed by: Nitin Duncan M.D. 08/16/2017 11:18 AM Dictated Date/Time: 08/16/2017 11:13 AM
[2017-08-16] MEDS ORDERED: NICOTINE 21 MG/24 HR TDSY TD SCH (12:00)
[2017-08-16] MEDS ORDERED: LEVE500T13 PO (12:34)
[2017-08-16] MEDS ORDERED: CIPR-255 PO (12:34)
--- NOTE | 2017-08-16 12:38 | Discharge Summary ---
Discharge Summary Date of Service Aug 16, 2017. Discharge Summary Admission Date: Aug 15, 2017 at 21:32 Discharge Date: Aug 16, 2017 Discharge Disposition: Home Principal Diagnosis: Seizure Problems/Secondary Diagnoses: (1) MS (multiple sclerosis) Status: Chronic (2) Seizures Status: Chronic Immunizations: Have You Had Influenza Vaccine: No History of Tetanus Vaccine?: No History of Pneumococcal: Yes History of Hepatitis B Vaccine: No Procedures: BRAIN COMBO CLINICAL HISTORY: L hemiparalysis, MS multiple sclerosis COMPARISON STUDY: 11/15/2016, 08/18/2015. TECHNIQUE: Utilizing a 1.5 Missy magnet and dedicated coil, multiplanar, multiecho imaging of the brain was performed pre and postcontrast administration. IV administration of 10 mL of Gadavist contrast was uneventful. FINDINGS: Persistent multiple foci of increased signal primarily the periventricular and deep white matter regions. This is also seen to a lesser extent involving the medial left cerebellum. Findings of mild superimposed atrophy. All findings are unchanged from the prior study. Diffusion-weighted images show no evidence for an acute ischemic focus. Postcontrast images are negative for postcontrast enhancement. Sella and parasellar regions are unremarkable. IMPRESSION: 1. No acute intracranial abnormality. 2. Extensive periventricular and deep white matter foci of altered signal unchanged from at least 2 prior studies. These are suggestive of pre-existing/ stable demyelinating plaques. 3. No evidence for significant change compared to the prior study. 4. No abnormal postcontrast enhancement. Consultations: NEUROLOGY RECOMMENDATIONS (Dr. Orozco): - Increase Keppra to 1000 milligrams b.i.d. - Follow-up with brain MRI to assess for significant interval change in her demyelinating disease and exclude acute, active demyelination. (MRI showed no acute changes) - Continue Gilenya. However, given the severity of this patient's multiple sclerosis it may be reasonable to consider switching her disease modifying therapy to Ocrevus. She will follow up with Dr. Vega in clinic to discuss her long-term MS management. - Continue gabapentin and Robaxin at the current dosages. This patient may also be an appropriate candidate for an intrathecal baclofen pump trial given her degree of lower extremity spasticity. This evaluation could be arranged in the outpatient setting. - Follow-up with Dr. Vega in outpatient clinic. Medication Reconciliation New Medications: Sulfa/Trimethoprim (Bactrim Ds 800MG/160MG) Tab 1 TAB PO BID, #6 TAB Levetiracetam (Keppra) 500 Mg Tab 1000 MG PO BID for 30 Days, #120 TAB Continued Medications: Cholecalciferol (Vitamin D3) 2,000 Unit Cap 2000 CAP PO DAILY Citalopram (Citalopram Hydrobromide) 40 Mg Tab 40 MG PO QAM Cyanocobalamin (Vitamin B-12) 1,000 Mcg Tab 1000 MCG PO DAILY, TAB Diazepam (Anticonvulsant) (Diazepam Rectal Gel) 10 Mg Gel 1 APPLN LA UD PRN for CONVULSIVE SEIZURE Fingolimod Hcl (Gilenya) 0.5 Mg Cap 0.5 MG PO DAILY Gabapentin (Gabapentin) 800 Mg Tab 800 MG PO QAM Gabapentin (Neurontin) 800 Mg Tab 1200 MG PO HS, TAB Lamotrigine (Lamictal) 200 Mg Tab 400 MG PO BID TWO 200 MG TABLETS Lamotrigine (Lamotrigine) 25 Mg Tab 1 TAB PO BID TOTAL DOSE OF 425MG BID Levothyroxine Sodium (Levothyroxine Sodium) 50 Mcg Tab 50 MCG PO DAILY Lorazepam (Ativan) 0.5 Mg Tab 0.5 TAB PO DAILY PRN for PANIC ATTACKS, TAB Methocarbamol (Robaxin) 500 Mg Tab 500 MG PO HS, TAB Discontinued Medications: Levetiracetam (Keppra) 750 Mg Tab 750 MG PO BID Discharge Exam The patient was seen and examined at bedside. No acute overnight events. Pt reports to be at her baseline. Doesn't remember coming to the hospital. The last she remembers is being at home prior to waking up this morning. Patient is resting comfortably in bed. Denies having any pain. Eating and urinating well. Plan of care was described to the patient and all questions were answered. Review of Systems: Constitutional: No fever, No chills, No weight loss Eyes: No eye pain Respiratory: No cough, No sputum, No wheezing, No shortness of breath, No dyspnea on exertion Cardiovascular: No chest pain Abdomen: No pain, No nausea, No vomiting, No diarrhea Musculoskeletal: No joint pain Genitourinary - Female: No dysuria, No urinary frequency, No urinary urgency , No urinary incontinence, No urinary retention Neurologic: No memory loss, No paralysis, No numbness/tingling, No vertigo Integumentary: No rash Physical Exam: General Appearance: WD/WN, no apparent distress Eyes: normal inspection ENT: normal ENT inspection Respiratory/Chest: chest non-tender, lungs clear, normal breath sounds, no respiratory distress Cardiovascular: regular rate, rhythm, no edema, no gallop, no JVD, no murmur , normal peripheral pulses Abdomen / GI: normal bowel sounds, non tender, soft, no organomegaly Extremities: normal inspection, no calf tenderness Neurologic/Psychiatric: alert, normal mood/affect, oriented x 3, + pertinent finding (slight tremor in the right leg (chronic), decreased sensation in the RLE distal to the R knee (chronic), poor motor control of the LE bilaterally (chronic), pedal push > dorsiflexion, improved motor control over the UE bilaterally. See Dr. Orozco's note today for extensive Neuro exam. ) Skin: normal color, warm/dry Hospital Course 36F with a PMHx of Multiple Sclerosis, seizure disorder, presents to the ER following multiple consecutive seizures lasting > 1 hour. Per her mother at bedside, her seizure disorder has been fairly well-controlled since 03/18 when she was last admitted for status epilepticus. She did not respond initially to rectal Diazepam provided by her mother. In the ER the patient was awake but disoriented and somnolent at the time of admission and cannot recall having a seizure. She c/o neck soreness. She denies CP, SOB, nausea. Urinalysis showed evidence of a possible UTI. The pt displays R hemiparesis at the time of admission which has apparently occurred previously following a seizure. On Hospital Day #1, pt was evaluated by our Neurologist Dr. Orozco and it was decided that the Keppra dose would be increased from 750mg BID to 1000mg BID and outpatient follow up with Dr. Orozco for further follow up. Patient was also discharged on Bactrim for a UTI. Urine cultures are pending at discharge. MRI results obtained showed no acute changes. Patient was discharged at her baseline condition. Patient and mother agreed to the plan. Total Time Spent: Greater than 30 minutes (32 min) This includes examination of the patient, discharge planning, medication reconciliation, and communication with other providers. Discharge Instructions Please refer to the electronic Patient Visit Report (Discharge Instructions) for additional information. Follow-Up Follow up with Neurologist within 1-2 weeks. Follow up with PCP within one week. Additional Copies To RV. Medellin MD; Arsen Vega M.D. Resident Involvement: Resident Care Provided Care Provided: Adult Hospital Medicine Reviewed: Pt Seen/Exam by Me History no further seizures Constitutional: denies: fever Respiratory: negative: short of breath Cardiovascular: denies chest pain General Appearance: no apparent distress Respiratory: lungs clear, no respiratory distress Cardiovascular: regular rate, rhythm Neurologic/Psychiatric: alert, oriented x 3, other (spasticity in all extremity and tremors) Skin Characteristics: warm/dry Assessment/Plan Resident Physician Supervision Note: I independently interviewed and examined the patient and verified the red[place] history and physical, reviewed labs and image studies, discussed the case with the resident Dr. Franks and agree with the findings and care plan. Time spent in discharge 35 min
--- NOTE | 2017-08-16 12:44 | Discharge Instructions ---
Discharge Instructions Date of Service Aug 16, 2017. Admission Reason for Admission: Status Epilepticus Discharge Discharge Diagnosis / Problem: Seizure / UTI Discharge Goals Goal(s): Decrease discomfort, Improve function, Increase independence, Improve disease control, Improve nutritional status, Learn about illness Activity Recommendations Activity Limitations: per Instructions/Follow-up section . Instructions / Follow-Up Instructions / Follow-Up Our Neurologist, Dr Orozco, has evaluated you and wants to increase your Keppra dose from 750mg every 12 hours to 1000mg every 12 hours. A prescription for this new dose will be given to your on discharge. Please start this medication tonight. You will be given enough medication for 30 days, after which point you should have renewals prescribed by your neurologist, Dr. Vega. We found evidence of a urinary tract infection in your urine. We are prescribing a medication called Bactrim for the infection. Please take the Bactrim every 12 hours as prescribed. Information on Bactrim and Keppra will be printed for you on discharge. Please read this information carefully. The MRI of the brain showed no acute changes. Dr. Orozco recommend close follow with Dr. Vega within one month of discharge. Your will need to see Dr. Vega to get a renewal of the new dose of Keppra. Dr. Vega may also want to discuss your medications for Multiple Sclerosis. If you continue to have seizures that do not go away with your abortive medications please come back to the ER. Please follow up with your Primary Care Doctor for your urinary tract infection and complete the course of Bactrim as prescribed. Current Hospital Diet Patient's current hospital diet: Regular Diet Discharge Diet Recommended Diet: Regular Diet Pending Studies Studies pending at discharge: yes List of pending studies: Urine Culture Results and Sensitivities Medical Emergencies . Who to Call and When: Medical Emergencies: If at any time you feel your situation is an emergency, please call 911 immediately. . Non-Emergent Contact Non-Emergency issues call your: Primary Care Provider, Neurologist Call Non-Emergent contact if: you have a fever . . "Provider Documentation" section prepared by Nitin Franks. . Resident Involvement: Resident Care Provided Care Provided: Adult Hospital Medicine
[2017-08-16] MEDS ORDERED: SULF800T23 PO (13:25)
[2017-08-16 13:35] VITALS: BP 108/72; PULSE 84; TEMP 37.1; O2SAT 98
[2017-08-16] MEDS ORDERED: LEVETIRACETAM 500 MG TAB PO SCH (21:00)
== END 2017-08-16 14:11 | disposition home or self-care (01) | DRG 101 ==
LOC: EDBD 19:51 → C.EDA 19:53 → C.MED 21:32 → ENRESERV 21:52
PROVIDERS: ADMIT Internal Medicine; ATTEND Family Medicine
DX: G40.901 Epilepsy, unspecified, not intractable, with status epilepticus (principal); N39.0 Urinary tract infection, site not specified; G81.91 Hemiplegia, unspecified affecting right dominant side; G83.84 Todd's paralysis (postepileptic); G35 Multiple sclerosis; F17.200 Nicotine dependence, unspecified, uncomplicated; Z79.899 Other long term (current) drug therapy; Z88.0 Allergy status to penicillin; Z88.1 Allergy status to other antibiotic agents; Z91.018 Allergy to other foods

== ENCOUNTER 2017-12-05 20:49 | Observation (INO) | payer OTHER ==
[~2017-12-05] VITALS: Ht 170.2 cm; Wt 46.8 kg
[~2017-12-05 20:49] MED LIST changes: +GABA800T PO; +LEVE500T13 PO; -LEVE750T PO; +LMC25 PO; +SULF800T23 PO
[2017-12-05] MEDS: SODIUM CHLORIDE 0.9% 1000ML 1,000 ML IV ONE ×2 (21:00→22:39)
[2017-12-05] MEDS ORDERED: LEVETIRACETAM IV 1,000 MG in DEXTROSE 5% 100ML 100 ML IV ONE (21:15)
--- NOTE | 2017-12-05 21:17 | DIAGNOSTIC IMAGING REPORT ---
CHEST ONE VIEW PORTABLE CLINICAL HISTORY: seizure COMPARISON STUDY: 08/15/2017 FINDINGS: The cardiac and mediastinal contours are normal. There is no evidence of focal pulmonary consolidation. There is no evidence of failure. No pleural effusions are visualized.[ IMPRESSION: No active disease in the chest. Electronically signed by: Yovani Jackson M.D. 12/05/2017 9:16 PM Dictated Date/Time: 12/05/2017 9:15 PM
[2017-12-05 21:19] LABS: BASO % 0.2 %; BASO ABS # 0.01 K/uL (0-0.2); EOS % 1.5 %; EOS ABS # 0.07 K/uL (0-0.5); HEMATOCRIT 41.5 % (37-47); HEMOGLOBIN 13.8 g/dL (12.0-16.0); IG# 0.02 K/uL (0.00-0.02); LYMPH % 10.6 %; MEAN CORPUSCULAR HEMOGLOBIN 30.9 pg (25-34); MEAN CORPUSCULAR HGB CONC 33.3 g/dl (32-36); MEAN PLATELET VOLUME 9.2 fL (7.4-10.4); MONO ABS # 0.14 K/uL (0.11-0.59); NEUT % 84.3 %; NEUT ABS # 3.97 K/uL (1.4-6.5); PLATELET COUNT 229 K/uL (130-400); RED CELL DISTRIBUTION WIDTH CV 12.6 % (11.5-14.5); RED CELL DISTRIBUTION WIDTH SD 42.4 fL (36.4-46.3); WHITE BLOOD COUNT 4.71 K/uL (4.8-10.8)
--- NOTE | 2017-12-05 21:20 | DIAGNOSTIC IMAGING REPORT ---
CT HEAD WITHOUT CONTRAST (CT) CLINICAL HISTORY: status epilepticus COMPARISON STUDY: 08/15/2017 TECHNIQUE: Axial CT of the brain is performed from the vertex to the skull base. IV contrast was not administered for this examination. A dose lowering technique was utilized adhering to the principles of ALARA. CT DOSE: 638.56 mGycm FINDINGS: No intra or extra-axial mass lesions are visualized. There is no CT evidence of acute cortical infarction. There is no evidence of midline shift. There is no acute hemorrhage. No calvarial fractures are visualized. There are multiple white matter hypodensities, similar to the prior study. The distribution is consistent with the patient's clinical history of multiple sclerosis. There is no evidence of pathologic ventricular dilatation. There is no evidence of acute sinusitis IMPRESSION: 1. Multiple white matter hypodensities consistent with a clinical history of multiple sclerosis 2. No acute intracranial findings Electronically signed by: Yovani Jackson M.D. 12/05/2017 9:19 PM Dictated Date/Time: 12/05/2017 9:17 PM
--- NOTE | 2017-12-05 21:33 | EMERGENCY ROOM VISIT NOTE ---
History Report prepared by Jordny: Josias Rivera Under the Supervision of: Dr. Blair Mason M.D. First contact with patient: 20:48 Chief Complaint: SEIZURE Stated Complaint: SEIZURE History of Present Illness The patient is a 36 year old female who presents to the Emergency Room with complaints of seizure. EMS states that they received the call at 1948 today, at which time the patient had been having an episode for a few minutes. They state that her seizure lasted about one hour. She was given 3 mg Ativan in 1 mg increments. EMS states that she was able to talk for a short period of time but then seized again. Her blood sugar is 116. The patient has a history of multiple sclerosis, spastic tremor, seizures, ambulatory dysfunction, and cognitive and mood dysfunction. The patient currently takes Lamictal and Keppra for her seizures, and the patient's mother states that she used to take Tegretol and Depakote for seizures. She is seen by her neurologist, Dr. Vega. The patient's mother states that she has given the patient her regular medications. The mother also notes that the patient reported to the ER this past July due to a similar episode that occurred when her dosage of Keppra was increased to 1 g twice a day. She notes that the patient has been on this regiment over a two month period, over which her dosage if Keppra has been decreased to 750mg a day. The mother states the patient is now on Vimpat. Review of Systems See HPI for pertinent positives and negatives. A total of ten systems were reviewed and were otherwise negative. Past Medical & Surgical Medical Problems: (1) Altered mental status (2) Expressive aphasia (3) Expressive aphasia (4) Grand mal convulsion (5) MS (multiple sclerosis) (6) MS (multiple sclerosis) (7) Seizures (8) Seizures (9) Sprain of knee (10) Sprain of knee (11) Status epilepticus Surgical Problems: (1) History of knee surgery Family History FHx: hypertension FHx: seizures Social History Smoking Status: Never Smoker Alcohol Use: none Drug Use: marijuana Marital Status: single Housing Status: lives with family Occupation Status: disabled Current/Historical Medications Scheduled Cholecalciferol (Vitamin D3), 2,000 CAP PO DAILY Citalopram (Citalopram Hydrobromide), 40 MG PO QAM Cyanocobalamin (Vitamin B-12), 1,000 MCG PO DAILY Fingolimod Hcl (Gilenya), 0.5 MG PO DAILY Gabapentin (Gabapentin), 800 MG PO QAM Lacosamide (Vimpat), 100 MG PO DAILY Lamotrigine (Lamictal), 400 MG PO BID Lamotrigine (Lamotrigine), 1 TAB PO BID Levetiracetam (Keppra), 250 MG PO QAM Levetiractam (Keppra), 500 MG PO QPM Levothyroxine Sodium (Levothyroxine Sodium), 50 MCG PO DAILY Scheduled PRN Diazepam (Anticonvulsant) (Diazepam Rectal Gel), 1 APPLN [place] UD PRN for CONVULSIVE SEIZURE Lorazepam (Ativan), 1 TAB PO DAILY PRN for PANIC ATTACKS Allergies Coded Allergies: Penicillins (Verified Allergy, Mild, 12/05/17) Clindamycin (Verified Adverse Reaction, Severe, NAUSEA/VOMITING, 12/05/17) Rice (Verified Adverse Reaction, Unknown, vomiting, 12/05/17) Physical Exam Vital Signs Date Time Temp Pulse Resp B/P (MAP) Pulse Ox O2 Delivery O2 Flow Rate FiO2 12/05/17 22:45 114/83 12/05/17 22:35 87 16 97 12/05/17 22:30 104/78 12/05/17 22:24 83 18 98 Nasal Cannula 2.0 12/05/17 22:15 108/72 12/05/17 22:09 86 19 100 12/05/17 22:01 90/85 12/05/17 21:54 86 21 100 12/05/17 21:45 107/77 12/05/17 21:39 83 19 100 12/05/17 21:34 86 25 100 12/05/17 21:31 104/59 12/05/17 21:19 86 20 100 12/05/17 21:18 105/70 12/05/17 21:04 88 26 100 Nasal Cannula 2.0 12/05/17 21:01 90 12/05/17 21:00 Nasal Cannula 2.0 12/05/17 20:53 36.8 91 23 115/71 99 Room Air Physical Exam Physical Exam GENERAL: Distressed. Appears postictal. HENT: Exam performed. Head: Normocephalic and atraumatic. EYES: Pupils are equal, round, and reactive to light. NECK: Normal range of motion. Neck supple. No JVD present. No spinous process tenderness present. No carotid bruit present. No rigidity. No tracheal deviation and normal range of motion present. No Brudzinski's sign and no Kernig 's sign noted. CV: Normal rate, regular rhythm, normal heart sounds and intact distal pulses. There is no peripheral edema. Palpable radial pulses bue. PULM/CHEST: Rhonchi bilaterally ABD: The abdomen is soft. Bowel sounds are normal. She has no distension. No mass is present. There is no tenderness. There is no rebound, no guarding, no Odonnell's sign and no tenderness at McBurney's point. Rovsig negative NEURO: Appears postictal. GCS eyes 4 verbal 3 motor 4 Medical Decision & Procedures ER Provider Diagnostic Interpretation: Radiology results as stated below per my review and radiologist interpretation: CHEST ONE VIEW PORTABLE CLINICAL HISTORY: seizure COMPARISON STUDY: 08/15/2017 FINDINGS: The cardiac and mediastinal contours are normal. There is no evidence of focal pulmonary consolidation. There is no evidence of failure. No pleural effusions are visualized.[ IMPRESSION: No active disease in the chest. Electronically signed by: Yovani Jackson M.D. 12/05/2017 9:[address] HEAD WITHOUT CONTRAST (CT) CLINICAL HISTORY: status epilepticus COMPARISON STUDY: 08/15/2017 TECHNIQUE: Axial CT of the brain is performed from the vertex to the skull base. IV contrast was not administered for this examination. A dose lowering technique was utilized adhering to the principles of ALARA. CT DOSE: 638.56 mGycm FINDINGS: No intra or extra-axial mass lesions are visualized. There is no CT evidence of acute cortical infarction. There is no evidence of midline shift. There is no acute hemorrhage. No calvarial fractures are visualized. There are multiple white matter hypodensities, similar to the prior study. The distribution is consistent with the patient's clinical history of multiple sclerosis. There is no evidence of pathologic ventricular dilatation. There is no evidence of acute sinusitis IMPRESSION: 1. Multiple white matter hypodensities consistent with a clinical history of multiple sclerosis 2. No acute intracranial findings Electronically signed by: Yovani Jackson M.D. 12/05/2017 9:19 PM Laboratory Results 12/05/17 21:05 Red Blood Count 4.46, Mean Corpuscular Volume 93.0, Mean Corpuscular Hemoglobin 30.9, Mean Corpuscular Hemoglobin Concent 33.3, Mean Platelet Volume 9.2, Neutrophils (%) (Auto) 84.3, Lymphocytes (%) (Auto) 10.6, Monocytes (%) (Auto) 3.0, Eosinophils (%) (Auto) 1.5, Basophils (%) (Auto) 0.2, Neutrophils # (Auto) 3.97, Lymphocytes # (Auto) 0.50, Monocytes # (Auto) 0.14, Eosinophils # (Auto) 0.07, Basophils # (Auto) 0.01 12/05/17 21:05 Test 12/05/17 21:02 12/05/17 21:05 12/05/17 21:35 12/05/17 21:54 Bedside Glucose 95 mg/dl (70-90) White Blood Count 4.71 K/uL (4.8-10.8) Red Blood Count 4.46 M/uL (4.2-5.4) Hemoglobin 13.8 g/dL (12.0-16.0) Hematocrit 41.5 % (37-47) Mean Corpuscular Volume 93.0 fL (80-100) Mean Corpuscular Hemoglobin 30.9 pg (25-34) Mean Corpuscular Hemoglobin Concent 33.3 g/dl (32-36) Platelet Count 229 K/uL (130-400) Mean Platelet Volume 9.2 fL (7.4-10.4) Neutrophils (%) (Auto) 84.3 % Lymphocytes (%) (Auto) 10.6 % Monocytes (%) (Auto) 3.0 % Eosinophils (%) (Auto) 1.5 % Basophils (%) (Auto) 0.2 % Neutrophils # (Auto) 3.97 K/uL (1.4-6.5) Lymphocytes # (Auto) 0.50 K/uL (1.2-3.4) Monocytes # (Auto) 0.14 K/uL (0.11-0.59) Eosinophils # (Auto) 0.07 K/uL (0-0.5) Basophils # (Auto) 0.01 K/uL (0-0.2) RDW Standard Deviation 42.4 fL (36.4-46.3) RDW Coefficient of Variation 12.6 % (11.5-14.5) Immature Granulocyte % (Auto) 0.4 % Immature Granulocyte # (Auto) 0.02 K/uL (0.00-0.02) Anion Gap 4.0 mmol/L (3-11) Est Creatinine Clear Calc Drug Dose 80.9 ml/min Estimated GFR () 121.7 Estimated GFR (Non- 105.0 BUN/Creatinine Ratio 14.0 (10-20) Calcium Level 8.3 mg/dl (8.5-10.1) Magnesium Level 2.3 mg/dl (1.8-2.4) Total Creatine Kinase 63 U/L (26-192) Chemistry Specimen Hemolysis Urine Color YELLOW Urine Appearance TURBID (CLEAR) Urine pH 7.5 (4.5-7.5) Urine Specific [place] 1.024 (1.000-1.030) Urine Protein NEG (NEG) Urine Glucose (UA) NEG (NEG) Urine Ketones TRACE (NEG) Urine Occult Blood NEG (NEG) Urine Nitrite NEG (NEG) Urine Bilirubin NEG (NEG) Urine Urobilinogen NEG (NEG) Urine Leukocyte Esterase MODERATE (NEG) Urine WBC (Auto) 1-5 /hpf (0-5) Urine RBC (Auto) 0-4 /hpf (0-4) Urine Hyaline Casts (Auto) 1-5 /lpf (0-5) Urine Epithelial Cells (Auto) 5-10 /lpf (0-5) Urine Bacteria (Auto) 2+ (NEG) Urine Test NEG (NEG) Urine Opiates Screen NEG (NEG) Urine Methadone, Qualitative NEG (NEG) Urine Barbiturates NEG (NEG) Urine Phencyclidine (PCP) Level NEG (NEG) Ur Amphetamine/Methamphetamine NEG (NEG) MDMA (Ecstasy) Screen NEG (NEG) Urine Benzodiazepines Screen NEG (NEG) Urine Cocaine Metabolite NEG (NEG) Urine Marijuana (THC) POS (NEG) Prothrombin Time 10.0 SECONDS (9.0-12.0) Prothromb Time International Ratio 1.0 (0.9-1.1) Activated Partial Thromboplast Time 25.0 SECONDS (21.0-31.0) Partial Thromboplastin Ratio 1.0 Lactic Acid Level 1.0 mmol/L (0.4-2.0) Laboratory results reviewed by me Medications Administered Medications (Trade) Dose Ordered Sig/Dinesh Route Start Time Stop Time Status Last Admin Dose Admin Levetiracetam 1000 mg/Dextrose 110 ml @ 440 mls/hr ONE ONCE IV 12/05/17 21:15 12/05/17 21:29 DC 12/05/17 21:27 440 MLS/HR Sodium Chloride 1,000 ml @ 100 mls/hr ONE ONCE IV 12/05/17 22:38 12/05/17 23:10 DC 12/05/17 21:00 100 MLS/HR ECG Per My Interpretation Indication: other (seizure) Rate (beats per minute): 84 Rhythm: sinus rhythm Findings: other (AK ) Comparison ECG Date: no prior available ED Course 2050: The patient was evaluated in room B1. A complete history and physical exam was performed. On arrival the patient is postictal but is maintaining her airway. No need for emergent intubation. 2109: I spoke with Dr. Gary Rios. He states he knows the patient well and that she has a history of seizures and pseudoseizures. Given the history provided by EMS and the mother, he states that this is a possible case of status epilepticus. He recommends 1 g Keppra IV medicine piggyback be given, and to be admitted pending CT. 2138: CT of the head negative for acute intracranial abnormality including no hemorrhage. Labs within normal limits. Patient continues to be postictal. I discussed the test results and treatment plan with Dr. Cantu. The patient will be evaluated for further management. Medical Decision 2050: The patient was evaluated in room B1. A complete history and physical exam was performed. On arrival the patient is postictal but is maintaining her airway. No need for emergent intubation. 2109: I spoke with Dr. Gary Rios. He states he knows the patient well and that she has a history of seizures and pseudoseizures. Given the history provided by EMS and the mother, he states that this is a possible case of status epilepticus. He recommends 1 g Keppra IV medicine piggyback be given, and to be admitted pending CT. 2138: CT of the head negative for acute intracranial abnormality including no hemorrhage. Labs within normal limits. Patient continues to be postictal. I discussed the test results and treatment plan with Dr. Cantu. The patient will be evaluated for further management. Consults Time Called: 2099 Consulting Physician: Dr. Vega Neurology Returned Call: [address] Vega - Neurology. He states he knows the patient well and that she has a history of seizures and pseudoseizures. Given the history provided by EMS and the mother, he states that this is a possible case of status epilepticus. He recommends 1 g Keppra IV medicine piggyback be given, and to be admitted pending CT. Impression Primary Impression: Status epilepticus Additional Impression: MS (multiple sclerosis) Scribe Attestation The scribe's documentation has been prepared under my direction and personally reviewed by me in its entirety. I confirm that the note above accurately reflects all work, treatment, procedures, and medical decision making performed by me. The chart was completed utilizing [employer] Chinese Speech voice recognition software. Grammatical errors, random word insertions, pronoun errors, and incomplete sentences are an occasional consequence of this system due to software limitations, ambient noise, and hardware issues. Any formal questions or concerns about the content, text, or information contained within the body of this dictation should be directly addressed to the physician for clarification. Departure Information Referrals RV. Medellin MD (PCP) Patient Instructions My [facility] Problem Qualifiers
[2017-12-05 21:42] LABS: CALCIUM 8.3 mg/dl (8.5-10.1); CREATININE 0.74 mg/dl (0.60-1.20)
[2017-12-05] MEDS ORDERED: NURSING VERBAL MED ORDER ONE (21:45)
[2017-12-05 21:46] LABS: POTASSIUM 3.9 mmol/L (3.5-5.1)
[2017-12-05] MEDS ORDERED: [UNRECOGNIZED DRUG - CODE] PO (21:50)
[2017-12-05] MEDS ORDERED: KPP/250 PO (21:50)
[2017-12-05] MEDS ORDERED: LACO100T PO ×2 (21:50)
[2017-12-05] MEDS ORDERED: MAGNESIUM HYDROXIDE SUSP 30 ML UDC PO PRN (23:00)
[2017-12-05] MEDS ORDERED: LORAZEPAM 0.5 MG TAB PO PRN (23:00)
[2017-12-05] MEDS ORDERED: ZOLPIDEM TARTRATE 5 MG TAB PO PRN (23:00)
[2017-12-05] MEDS ORDERED: ACETAMINOPHEN 325 MG TAB PO PRN (23:00)
[2017-12-05] MEDS ORDERED: ONDANSETRON INJ 2 MG/ML 2 ML VIAL IV PRN (23:00)
[2017-12-05] MEDS ORDERED: POLYETHYLENE (MIRALAX) 17 GM PACK PO PRN (23:00)
[2017-12-05] MEDS ORDERED: DIAZEPAM 10 MG RECTAL GEL PR PRN (23:00)
[2017-12-05] MEDS ORDERED: ALUMINUM/MAGNESIUM/SIMETH (MAALOX MAX) 30 ML UDC PO PRN (23:00)
--- NOTE | 2017-12-05 23:08 | History and Physical ---
History & Physical Date & Time of Service: Dec 05, 2017 at 22:46 Chief Complaint: Seizure Primary Care Physician: RV. Medellin MD History of Present Illness Source: patient, family, partner 36F with a PMHx of MS, seizure disorder presents following a seizure starting at 7:45pm that resolved (per mom) in the ambulance on the way to the hospital. Per the usual seizure course the patient is currently post ictal with left sided deficits. It is unclear how long the seizure lasted, possible up to 45 min. Mom is at bedside and provides the majority of the history. Mom did not administer rectal diazepam because EMS had arrived on the scene. Per mom, pt's neurologist Dr. Vega, has been weaning the patient off Keppra. Per Dr. Mason, EMS admistered three 1mg doses of Ativan en route to hospital. Patient is awake, but mumbling, she continues to be post ictal. Dr. Mason has discussed the case with Dr. Vega and a 1gram loading dose is Keppra was given in the ER. Past Medical/Surgical History 1) Multiple Sclerosis 2) Seizure Disorder Family History FHx: hypertension FHx: seizures Social History Smoking Status: Never Smoker Drug Use: marijuana Marital Status: single Occupational Status: disabled Immunizations History of Influenza Vaccine: No History of Tetanus Vaccine?: No History of Pneumococcal: Yes History of Hepatitis B Vaccine: No Allergies Coded Allergies: Penicillins (Verified Allergy, Mild, 12/05/17) Clindamycin (Verified Adverse Reaction, Severe, NAUSEA/VOMITING, 12/05/17) Rice (Verified Adverse Reaction, Unknown, vomiting, 12/05/17) Home Medications Scheduled Cholecalciferol (Vitamin D3), 2,000 CAP PO DAILY Citalopram (Citalopram Hydrobromide), 40 MG PO QAM Cyanocobalamin (Vitamin B-12), 1,000 MCG PO DAILY Fingolimod Hcl (Gilenya), 0.5 MG PO DAILY Gabapentin (Gabapentin), 800 MG PO QAM Lacosamide (Vimpat), 100 MG PO DAILY Lamotrigine (Lamictal), 400 MG PO BID Lamotrigine (Lamotrigine), 1 TAB PO BID Levetiracetam (Keppra), 250 MG PO QAM Levetiractam (Keppra), 500 MG PO QPM Levothyroxine Sodium (Levothyroxine Sodium), 50 MCG PO DAILY Scheduled PRN Diazepam (Anticonvulsant) (Diazepam Rectal Gel), 1 APPLN [place] UD PRN for CONVULSIVE SEIZURE Lorazepam (Ativan), 1 TAB PO DAILY PRN for PANIC ATTACKS Review of Systems Constitutional: No fever, No chills ENT: No hearing loss Respiratory: No cough, No sputum, No wheezing, No shortness of breath, No dyspnea on exertion Cardiovascular: No chest pain Abdomen: No pain, No nausea, No vomiting, No diarrhea, No constipation Musculoskeletal: No joint pain Genitourinary - Female: No dysuria, No urinary frequency Neurologic: + paralysis (left side and LE bilaterally (LE is chronic)), + weakness, No memory loss Endocrine: No fatigue Physical Exam Vital Signs Date Time Temp Pulse Resp B/P (MAP) Pulse Ox O2 Delivery O2 Flow Rate FiO2 12/05/17 22:30 104/78 12/05/17 22:24 83 18 98 Nasal Cannula 2.0 12/05/17 22:15 108/72 12/05/17 22:09 86 19 100 12/05/17 22:01 90/85 12/05/17 21:54 86 21 100 12/05/17 21:45 107/77 12/05/17 21:39 83 19 100 12/05/17 21:34 86 25 100 12/05/17 21:31 104/59 12/05/17 21:19 86 20 100 12/05/17 21:18 105/70 12/05/17 21:04 88 26 100 Nasal Cannula 2.0 12/05/17 21:01 90 12/05/17 21:00 Nasal Cannula 2.0 12/05/17 20:53 36.8 91 23 115/71 99 Room Air General Appearance: + pertinent finding (pt is mumbling answers to questions, however I can appreciate 'yes' and 'no' responses ) Head: normocephalic Eyes: normal inspection ENT: normal ENT inspection, pharynx normal Neck: supple, no JVD Respiratory/Chest: chest non-tender, lungs clear Cardiovascular: regular rate, rhythm, no edema, no gallop Abdomen/GI: normal bowel sounds, non tender, soft Back: normal inspection, no CVA tenderness Extremities/Musculoskelatal: normal inspection, no calf tenderness, normal capillary refill Neurologic/Psych: + pertinent finding (Initially with facial asymmetry - resolved during exam - she is unable to move her L arm or leg and displays generalized weakness. She cannot ambulate at baseline due to MS.) Skin: normal color, warm/dry Diagnostics Laboratory Results Results Past 24 Hours Test 12/05/17 21:02 12/05/17 21:05 12/05/17 21:35 12/05/17 21:54 Range/Units Bedside Glucose 95 70-90 mg/dl White Blood Count 4.71 4.8-10.8 K/uL Red Blood Count 4.46 4.2-5.4 M/uL Hemoglobin 13.8 12.0-16.0 g/dL Hematocrit 41.5 37-47 % Mean Corpuscular Volume 93.0 80-100 fL Mean Corpuscular Hemoglobin 30.9 25-34 pg Mean Corpuscular Hemoglobin Concent 33.3 32-36 g/dl Platelet Count 229 130-400 K/uL Mean Platelet Volume 9.2 7.4-10.4 fL Neutrophils (%) (Auto) 84.3 % Lymphocytes (%) (Auto) 10.6 % Monocytes (%) (Auto) 3.0 % Eosinophils (%) (Auto) 1.5 % Basophils (%) (Auto) 0.2 % Neutrophils # (Auto) 3.97 1.4-6.5 K/uL Lymphocytes # (Auto) 0.50 1.2-3.4 K/uL Monocytes # (Auto) 0.14 0.11-0.59 K/uL Eosinophils # (Auto) 0.07 0-0.5 K/uL Basophils # (Auto) 0.01 0-0.2 K/uL RDW Standard Deviation 42.4 36.4-46.3 fL RDW Coefficient of Variation 12.6 11.5-14.5 % Immature Granulocyte % (Auto) 0.4 % Immature Granulocyte # (Auto) 0.02 0.00-0.02 K/uL Sodium Level 140 136-145 mmol/L Potassium Level 3.9 3.5-5.1 mmol/L Chloride Level 106 98-107 mmol/L Carbon Dioxide Level 30 21-32 mmol/L Anion Gap 4.0 3-11 mmol/L Blood Urea Nitrogen 10 7-18 mg/dl Creatinine 0.74 0.60-1.20 mg/dl Est Creatinine Clear Calc Drug Dose 80.9 ml/min Estimated GFR () 121.7 Estimated GFR (Non- 105.0 BUN/Creatinine Ratio 14.0 10-20 Random Glucose 77 70-99 mg/dl Calcium Level 8.3 8.5-10.1 mg/dl Magnesium Level 2.3 1.8-2.4 mg/dl Total Creatine Kinase 63 26-192 U/L Chemistry Specimen Hemolysis Urine Color YELLOW Urine Appearance TURBID CLEAR Urine pH 7.5 4.5-7.5 Urine Specific [place] 1.024 1.000-1.030 Urine Protein NEG NEG Urine Glucose (UA) NEG NEG Urine Ketones TRACE NEG Urine Occult Blood NEG NEG Urine Nitrite NEG NEG Urine Bilirubin NEG NEG Urine Urobilinogen NEG NEG Urine Leukocyte Esterase MODERATE NEG Urine WBC (Auto) 1-5 0-5 /hpf Urine RBC (Auto) 0-4 0-4 /hpf Urine Hyaline Casts (Auto) 1-5 0-5 /lpf Urine Epithelial Cells (Auto) 5-10 0-5 /lpf Urine Bacteria (Auto) 2+ NEG Urine Test NEG NEG Urine Opiates Screen NEG NEG Urine Methadone, Qualitative NEG NEG Urine Barbiturates NEG NEG Urine Phencyclidine (PCP) Level NEG NEG Ur Amphetamine/Methamphetamine NEG NEG MDMA (Ecstasy) Screen NEG NEG Urine Benzodiazepines Screen NEG NEG Urine Cocaine Metabolite NEG NEG Urine Marijuana (THC) POS NEG Prothrombin Time 10.0 9.0-12.0 SECONDS Prothromb Time International Ratio 1.0 0.9-1.1 Activated Partial Thromboplast Time 25.0 21.0-31.0 SECONDS Partial Thromboplastin Ratio 1.0 Lactic Acid Level 1.0 0.4-2.0 mmol/L Impression Assessment and Plan 36F with a PMHx of MS, seizure disorder presents following a prolonged seizure that required three 1mg Ativan doses. Pt is currently in her regular post ictal course. Was given 1gram of Keppra in the ER. Neuro is on board. 1) Status epilepticus - prolonged - Provided with additional 1gram Keppra in the ER. To be evaluated by neuro for medication adjustment. Pt will be monitored on telemetry. Cont Keppra, Lamictal, Gabapentin, Vimpat, Lamotrigine. Lamictal and Lamotrigine levels pending. 2) MS - will continue daily Fingolomid. 3) L hemiparesis 2/2 post ictal state - cerebrovascular etiology is not likely and due to seizures and her post-ictal state, this has happened previously post ictally 4) Mood - c/w Citalopram 5) Hypothyroid - c/w Synthroid, will check TSH. Dispo: Obs, Tele (patient does meet admission criteria but I do not suspect a prolonged admission) DVT Proph: SCDs Diet: Regular Diet. Full code Resident Physician Supervision Note: I was present with Dr. Franks during the history and exam. I discussed the case with the resident and agree with the findings and plan as documented in the note. Any exceptions or clarifications are listed here: 36 y/o F Hx MS and severe seizure disorder, known to me from previous admissions. She had an hour-long seizure and was transported to the ER. She is post-ictal and could not provide additional information. She exhibits a degree of hemiplegia which is not new for her following a seizure. OE Somnolent - disoriented S1,2 R CTAB NT, ND No CCE Muscle wasting and global weakness are chronic - L hemiplegia is acute P: She is undergoing a med adjustments and recently reduced her Keppra dose - we will monitor her on telemetry - she received a loading dose of Keppra in the ER She can resume her Fingolomid for MS Documented By: Gary Cantu Resuscitation Status VTE Prophylaxis Will order VTE Prophylaxis: Yes Resident Involvement: Resident Care Provided Care Provided: Adult Hospital Medicine
[2017-12-05] MEDS ORDERED: IV FLUIDS COMPLETED PRN (23:45)
[2017-12-06] VITALS (8 sets, daily range): BP systolic 104–117; BP diastolic 65–77; PULSE 76–106; TEMP 36.9–37.5; O2SAT 93–99; Ht 170.2 cm; Wt 46.8 kg
[2017-12-06] MEDS: LEVOTHYROXINE 50 MCG TAB PO SCH (05:27)
--- NOTE | 2017-12-06 07:34 | Family Medicine Progress Note ---
Progress Note Date of Service Dec 06, 2017. Subjective Pt evaluation today including: conversation w/ patient, physical exam, chart review, lab review, review of studies, conversation w/ research consultant (Neurology), review of inpatient medication list Patient feeling better this morning - she denies recurrence of seizures, and though she still feels she is a little weaker on her left compared to her right , she feels less sleepy. She is craving a cigarette and agreeable to a nicotine patch. She otherwise denies fevers/chills, headaches, CP, palpitations, dyspnea , abdominal pain, lower extremity swelling or rashes. She tolerated breakfast, without nausea or vomiting, and denies issues with voiding and stooling. All Other Systems: Reviewed and Negative Objective Vital Signs Date Time Temp Pulse Resp B/P (MAP) Pulse Ox O2 Delivery O2 Flow Rate FiO2 12/06/17 06:45 37.1 84 22 104/68 (80) 94 Room Air 12/06/17 04:00 36.9 93 20 107/67 (80) 98 Room Air 12/06/17 04:00 Room Air 12/06/17 00:16 36.8 85 18 114/76 98 12/06/17 00:15 37.2 101 18 117/77 97 Room Air 12/06/17 00:00 85 18 114/76 98 12/05/17 23:45 85 21 110/79 98 12/05/17 23:30 86 20 114/83 98 Room Air 12/05/17 23:15 85 19 107/75 98 12/05/17 23:05 85 19 98 12/05/17 23:00 117/82 12/05/17 22:45 114/83 12/05/17 22:35 87 16 97 12/05/17 22:30 104/78 12/05/17 22:24 83 18 98 Nasal Cannula 2.0 12/05/17 22:15 108/72 12/05/17 22:09 86 19 100 12/05/17 22:01 90/85 12/05/17 21:54 86 21 100 12/05/17 21:45 107/77 12/05/17 21:39 83 19 100 12/05/17 21:34 86 25 100 12/05/17 21:31 104/59 12/05/17 21:19 86 20 100 7/6/18 21:18 105/70 12/05/17 21:04 88 26 100 Nasal Cannula 2.0 12/05/17 21:01 90 12/05/17 21:00 Nasal Cannula 2.0 12/05/17 20:53 36.8 91 23 115/71 99 Room Air Physical Exam General Appearance: WD/WN, no apparent distress, + cachetic Eyes: normal inspection ENT: hearing grossly normal Neck: supple Respiratory/Chest: normal breath sounds, no respiratory distress, no accessory muscle use Cardiovascular: regular rate, rhythm, no murmur Abdomen: normal bowel sounds, non tender, soft Extremities: no pedal edema, no calf tenderness Neurologic/Psychiatric: alert, normal mood/affect, oriented x 3, + motor weakness (4/5 in upper extremities, 2/5 in lower extremities, increased tone in LE), + pertinent finding (tremulous, slow speech) Skin: normal color, warm/dry, no rash Laboratory Results Results Past 24 Hours Test 12/05/17 21:02 12/05/17 21:05 12/05/17 21:35 12/05/17 21:54 Range/Units Bedside Glucose 95 70-90 mg/dl White Blood Count 4.71 4.8-10.8 K/uL Red Blood Count 4.46 4.2-5.4 M/uL Hemoglobin 13.8 12.0-16.0 g/dL Hematocrit 41.5 37-47 % Mean Corpuscular Volume 93.0 80-100 fL Mean Corpuscular Hemoglobin 30.9 25-34 pg Mean Corpuscular Hemoglobin Concent 33.3 32-36 g/dl Platelet Count 229 130-400 K/uL Mean Platelet Volume 9.2 7.4-10.4 fL Neutrophils (%) (Auto) 84.3 % Lymphocytes (%) (Auto) 10.6 % Monocytes (%) (Auto) 3.0 % Eosinophils (%) (Auto) 1.5 % Basophils (%) (Auto) 0.2 % Neutrophils # (Auto) 3.97 1.4-6.5 K/uL Lymphocytes # (Auto) 0.50 1.2-3.4 K/uL Monocytes # (Auto) 0.14 0.11-0.59 K/uL Eosinophils # (Auto) 0.07 0-0.5 K/uL Basophils # (Auto) 0.01 0-0.2 K/uL RDW Standard Deviation 42.4 36.4-46.3 fL RDW Coefficient of Variation 12.6 11.5-14.5 % Immature Granulocyte % (Auto) 0.4 % Immature Granulocyte # (Auto) 0.02 0.00-0.02 K/uL Sodium Level 140 136-145 mmol/L Potassium Level 3.9 3.5-5.1 mmol/L Chloride Level 106 98-107 mmol/L Carbon Dioxide Level 30 21-32 mmol/L Anion Gap 4.0 3-11 mmol/L Blood Urea Nitrogen 10 7-18 mg/dl Creatinine 0.74 0.60-1.20 mg/dl Est Creatinine Clear Calc Drug Dose 80.9 ml/min Estimated GFR () 121.7 Estimated GFR (Non- 105.0 BUN/Creatinine Ratio 14.0 10-20 Random Glucose 77 70-99 mg/dl Calcium Level 8.3 8.5-10.1 mg/dl Magnesium Level 2.3 1.8-2.4 mg/dl Total Creatine Kinase 63 26-192 U/L Chemistry Specimen Hemolysis Urine Color YELLOW Urine Appearance TURBID CLEAR Urine pH 7.5 4.5-7.5 Urine Specific [place] 1.024 1.000-1.030 Urine Protein NEG NEG Urine Glucose (UA) NEG NEG Urine Ketones TRACE NEG Urine Occult Blood NEG NEG Urine Nitrite NEG NEG Urine Bilirubin NEG NEG Urine Urobilinogen NEG NEG Urine Leukocyte Esterase MODERATE NEG Urine WBC (Auto) 1-5 0-5 /hpf Urine RBC (Auto) 0-4 0-4 /hpf Urine Hyaline Casts (Auto) 1-5 0-5 /lpf Urine Epithelial Cells (Auto) 5-10 0-5 /lpf Urine Bacteria (Auto) 2+ NEG Urine Test NEG NEG Urine Opiates Screen NEG NEG Urine Methadone, Qualitative NEG NEG Urine Barbiturates NEG NEG Urine Phencyclidine (PCP) Level NEG NEG Ur Amphetamine/Methamphetamine NEG NEG MDMA (Ecstasy) Screen NEG NEG Urine Benzodiazepines Screen NEG NEG Urine Cocaine Metabolite NEG NEG Urine Marijuana (THC) POS NEG Prothrombin Time 10.0 9.0-12.0 SECONDS Prothromb Time International Ratio 1.0 0.9-1.1 Activated Partial Thromboplast Time 25.0 21.0-31.0 SECONDS Partial Thromboplastin Ratio 1.0 Lactic Acid Level 1.0 0.4-2.0 mmol/L Test 12/06/17 08:17 Range/Units Assessment and Plan 36 yo F with a pMHx of MS, seizure disorder, hypothyroidism admitted for status epilepticus ~45min, resolved with three doses of 1mg lorazepam followed by a post ictal course. She did receive a loading dose of 1g of Keppra in the ER. Neuro consulted, recs appreciated. Status epilepticus - Meds adjusted per neurology: - Continue Lamictal 425mg BID - Increase Vimpat to 100mg qAM and 200 mg HS (plans to increase further in outpatient setting) - Decrease Keppra to 250mg BID at night - Lamictal and Keppra levels pending Left hemiparesis in post ictal state - ongoing resolution Cerebrovascular etiology is not likely. 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 Constitutional: denies: fever Respiratory: negative: short of breath Cardiovascular: denies chest pain General Appearance: no apparent distress Respiratory: lungs clear, no respiratory distress Cardiovascular: regular rate, rhythm Gastrointestinal: soft Neurologic/Psychiatric: alert, oriented x 3 Skin Characteristics: warm/dry Assessment/Plan Resident Physician Supervision Note: I independently interviewed and examined the patient and verified the [place] history and physical, reviewed labs and image studies, discussed the case with the resident Dr. Ravi and agree with the findings and care plan.
[2017-12-06] MEDS ORDERED: CHOLECALCIFEROL 1000 INTER.UNIT TAB PO SCH (09:00)
[2017-12-06] MEDS ORDERED: GABAPENTIN 800 MG TAB PO SCH (09:00)
[2017-12-06] MEDS: LEVETIRACETAM 250 MG TAB PO SCH (09:11)
--- NOTE | 2017-12-06 09:11 | Neurology Consultation ---
Neurology Consultation Date of Consultation: Dec 06, 2017. Attending Physician: Gary Cantu M.D. Primary Care Physician: RV. Medellin MD Reason for Consultation: Patient is a 36-year-old, who was asked to see the request of Drs. Franks and Alondra, for neurologic consultation regarding generalized tonic-clonic seizure and multiple sclerosis. History of Present Illness Source: patient, caregiver, clinic records, hospital records This patient is well-known to me. I 1st saw this patient in 2004 when she had her 1st seizure. An EEG then was unremarkable. An MRI of the brain at that time showed a single white matter spot with no other issues. Tegretol was initiated but that ended up being discontinued due to side effects. Over the years, she was followed by Dr. Delgado who switched to Depakote. This also gave her side effects and she ended up being on Lamictal and Keppra for years. She eventually was followed by Dr. Hernandez after Dr. Delgado retired. Following issues of numbness and weakness she ended up being diagnosed with multiple sclerosis, sometime after 2009. This was made on a combination of clinical grounds and an MRI of the brain that had increasing white matter spots. Apparently she was on Avonex and then Copaxone. She was fairly stable on Copaxone over the years. She had an MRI in November of 2013 which showed multiple periventricular white matter spots. EEG in September of 2014 was unremarkable and she was hospitalized twice for seizures in 2014. I next saw her in August of 2015 after she was hospitalized for another major seizure. At that time she was on Keppra 1500 milligrams twice daily, Lamictal 200 milligrams twice daily, and gabapentin 1600 milligrams twice daily (for leg spasticity). An MRI of the brain that hospitalization showed a pontine white matter lesion compared to 2013 which was not enhancing. Because of new lesions, her clinical course, and needle fatigue, she was switched to Gilenya in January of 2016. She has been on Gilenya since this time and tolerates it well. Her MS has been stable over the last 2 years with no flare-ups or deterioration. She has problems chronically with weakness and spasticity. Unfortunately, gabapentin gives her fatigue and other symptoms if she takes it in the daytime, and currently she takes only 800 milligrams each evening. Her incontinence has improved and her weakness is about the same. She tends to be bed and chair bound but can get up with help and take a few steps with a walker or with assistance. In the past, the patient has had issues with major depression and substance abuse. She was admitted for these issues in 2008. She was an abuser of alcohol and marijuana. She has not used alcohol since 2014. Currently she will smoke 1 joint of marijuana each evening because it helps her leg spasticity. She may do more during the day at times. Currently, her mood has been fairly stable on citalopram 40 milligrams daily. In addition, she gets panic attacks and will take a small dose of lorazepam as needed for these (as little as a quarter tablet of a 0.5 milligram lorazepam). In 2015 she was on amitriptyline in the evening for sleep but this was discontinued to avoid possible serotonin syndrome with the SSRI she is taking. Currently she is on no tricyclic antidepressants. A 7 hour ambulatory EEG in July of 2017 showed right temporal sharp waves with intermittent slow activity. The patient was hospitalized in July of 2017 with a significant generalized tonic-clonic seizure. Typically, after a generalized seizure like this, she will have left-sided weakness post ictally for a day or 2. At that time, she saw Dr. Orozco who increased Keppra to 1000 milligrams twice daily. An MRI of the brain that hospitalization showed no changes in the white matter with no new lesions or other abnormalities. The increased Keppra gives the patient side effects including shakiness and weakness. I saw the patient September 07, 2017, in clinic in because of the side effects we started a slow taper of Keppra and I initiated Vimpat 50 milligrams twice daily. In September of 2017 a vitamin-D level was low at 23.7 but she remains on 2000 units vitamin D3 daily. She saw [facility] October 24 as an outpatient and was still on Vimpat 50 milligrams twice daily and had not lowered the Keppra. She remained on Lamictal 425 milligrams twice daily as before. We increased Vimpat to 100 milligrams twice daily on that date. Over the next 4 weeks, she slowly lowered Keppra by 250 milligrams each week and over the last 1 and half weeks, she has been on 250 milligrams of Keppra in the morning and 500 milligrams of Keppra in the evening. Currently she remains on Vimpat 100 milligrams twice daily, gabapentin 800 milligrams at bedtime, and Lamictal 425 milligrams twice daily. On December 05, she woke and according to the patient felt well with no illness or fatigue. I spoke to her mother over the telephone and she says that the patient had a "great day" in the morning and afternoon. She was awake and alert and doing well. Sometime around 1930 the hours she had a panic attack. This was a significant panic attack according to the mother and she is unsure what triggered this. As has happened in the past, a panic attack can trigger a seizure and the patient was noted to have generalized tonic-clonic activity with altered responsiveness lasting as much as 45 minutes. A BSG apparently was 116. During the prolonged seizure EMS arrived and ended up giving her 3 X 1 milligram Ativan doses IV. After the 3rd, all seizure activity. The patient became very sleepy. She arrived to the emergency room at 2053 hours with a temperature 36.9, pulse of 91, respiratory rate of 23, blood pressure 115/71, and O2 saturation 99 percent. She was described as postictal and sleepy. There was no mention of any focal neurologic signs or meningeal signs. She was not having any further seizure activity. Chest x-ray was unremarkable CT scan of the head showed no acute changes Urine tox screen was positive for marijuana CBC showed mildly low white count but was otherwise unremarkable Chem profile was unremarkable although the calcium was 8.3. The patient received 1 gram of Keppra IV in the emergency room. Nursing reports no seizures overnight and she slept well. Somewhere around 0500 hours she awoke this morning at although sleepy has been able to converse. The patient herself denies any headache or pain currently, new weakness or numbness, or vision problems. She states that she is sleepy. She tells me that on the lower Keppra doses she has felt much better and actually has been doing very well with no seizures since a mild event in early September. She has decreased appetite but has been managing to hold her weight around 100 pounds. Past Medical/Surgical History Medical Problems: (1) MS (multiple sclerosis) Status: Chronic (2) MS (multiple sclerosis) Status: Chronic (3) Multiple sclerosis Status: Acute (4) Seizure Status: Acute (5) Seizure, epileptic Status: Acute (6) Seizures Status: Chronic Multiple sclerosis, stable on Gilenya, with chronic weakness and spasticity, disability and occasional urinary incontinence Generalized tonic-clonic seizure disorder on multiple medications History of anxiety and depression with panic attacks, generally stable History of hypothyroidism Vitamin-D deficiency Right knee meniscus repair 2013 Family History Mother age 65 has hypertension Father is an alcoholic in his later 60s. She knows nothing else about his history and does not have any contact with him. Mother: HTN Grandfather: seizure disorder Social History The patient smokes cigarettes at a rate of about a pack per week or so. She may smoke as many as 5 cigarettes a day. She does not consume alcohol anymore. She does smoke marijuana on a daily basis. There is no other drug use history. 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 Smoking Status: Current every day smoker Smokeless Tobacco Use: No Alcohol Use: none Drug Use: marijuana Marital Status: single Housing Status: lives with family Occupation Status: disabled Allergies Coded Allergies: Penicillins (Verified Allergy, Mild, 12/05/17) Clindamycin (Verified Adverse Reaction, Severe, NAUSEA/VOMITING, 12/05/17) Rice (Verified Adverse Reaction, Unknown, vomiting, 12/05/17) Current Inpatient Medications Current Inpatient Medications Medications (Trade) Dose Ordered Sig/Dinesh Route Start Time Stop Time Status Last Admin Dose Admin Acetaminophen (Tylenol Tab) 650 mg Q4H PRN PO 12/05/17 23:00 01/04/18 22:59 12/06/17 05:29 650 MG Al Hydrox/Mg Hydrox/Simethicone (Maalox Max Susp) 15 ml Q4H PRN PO 12/05/17 23:00 01/04/18 22:59 Magnesium Hydroxide (Milk Of Magnesia Susp) 30 ml Q12H PRN PO 12/05/17 23:00 01/04/18 22:59 Zolpidem Tartrate (Ambien Tab) 5 mg HSZ PRN PO 12/05/17 23:00 01/04/18 22:59 Ondansetron HCl (Zofran Inj) 4 mg Q6H PRN IV 12/05/17 23:00 01/04/18 22:59 12/06/17 02:48 4 MG Polyethylene (Miralax Powder Packet) 17 gm DAILY PRN PO 12/05/17 23:00 01/04/18 22:59 Citalopram Hydrobromide (celeXA TAB) 40 mg QAM PO 12/06/17 09:00 01/05/18 08:59 Cyanocobalamin (Vitamin B-12 Tab) 1,000 mcg DAILY PO 12/06/17 09:00 01/05/18 08:59 Diazepam (Diastat Rectal Gel) 10 mg UD PRN RI 12/05/17 23:00 01/04/18 22:59 Gabapentin (Neurontin Tab) 800 mg QAM PO 12/06/17 09:00 01/05/18 08:59 Lamotrigine (Lamictal Tab) 25 mg BID PO 12/06/17 09:00 01/05/18 08:59 Lamotrigine (Lamictal Tab) 400 mg BID PO 12/06/17 09:00 01/05/18 08:59 Levetiracetam (Keppra Tab) 250 mg QAM PO 12/06/17 09:00 01/05/18 08:59 Levetiracetam (Keppra Tab) 500 mg QPM PO 12/06/17 21:00 01/05/18 20:59 Levothyroxine Sodium (Synthroid Tab) 50 mcg DAILYBB PO 12/06/17 06:00 01/05/18 06:59 12/06/17 05:27 50 MCG Lorazepam (Ativan Tab) 0.5 mg DAILY PRN PO 12/05/17 23:00 01/04/18 22:59 Cholecalciferol (Vitamin D Tab) 2,000 inter.unit DAILY PO 12/06/17 09:00 01/05/18 08:59 Lacosamide (Vimpat Tab) 100 mg DAILY PO 12/06/17 09:00 01/05/18 08:59 Miscellaneous (Iv Fluids Completed) 1 ea PRN PRN N/A 12/05/17 23:45 12/05/18 23:44 Review of Systems Constitutional: + weight loss (She has decreased appetite), + weakness, + fatigue Eyes: No worsening of vision, No diplopia ENT: No hearing loss, No tinnitus Respiratory: No cough, No shortness of breath Cardiovascular: No chest pain, No palpitations Abdomen: No pain, No nausea Musculoskeletal: No joint pain, No muscle pain Genitourinary - Female: No dysuria, No urinary incontinence Neurologic: + memory loss, + weakness, + balance problems, No numbness/tingling , No vertigo Psychiatric: + anxiety, No depression symptoms Endocrine: + fatigue Hematologic / Lymphatic: No clotting problems, No night sweats Integumentary: No rash Allergic / Immunologic: No hives Physical Exam Vital Signs (Past 24 Hrs): Date Time Temp Pulse Resp B/P (MAP) Pulse Ox O2 Delivery O2 Flow Rate FiO2 12/06/17 06:45 37.1 84 22 104/68 (80) 94 Room Air 12/06/17 04:00 36.9 93 20 107/67 (80) 98 Room Air 12/06/17 04:00 Room Air 12/06/17 00:16 36.8 85 18 114/76 98 12/06/17 00:15 37.2 101 18 117/77 97 Room Air 12/06/17 00:00 85 18 114/76 98 12/05/17 23:45 85 21 110/79 98 12/05/17 23:30 86 20 114/83 98 Room Air 12/05/17 23:15 85 19 107/75 98 12/05/17 23:05 85 19 98 12/05/17 23:00 117/82 12/05/17 22:45 114/83 12/05/17 22:35 87 16 97 12/05/17 22:30 104/78 12/05/17 22:24 83 18 98 Nasal Cannula 2.0 12/05/17 22:15 108/72 12/05/17 22:09 86 19 100 12/05/17 22:01 90/85 12/05/17 21:54 86 21 100 12/05/17 21:45 107/77 12/05/17 21:39 83 19 100 12/05/17 21:34 86 25 100 12/05/17 21:31 104/59 12/05/17 21:19 86 20 100 12/05/17 21:18 105/70 12/05/17 21:04 88 26 100 Nasal Cannula 2.0 12/05/17 21:01 90 12/05/17 21:00 Nasal Cannula 2.0 12/05/17 20:53 36.8 91 23 115/71 99 Room Air Patient is left-handed. The patient is awake and alert although she yawns a lot it is sleepy. Speech is normal without aphasia or dysarthria. Mentation and thought processes are mildly slow, although she is fully orientation with a reasonable fund of knowledge. Mood and affect are normal and appropriate. Appearance and grooming are normal. Long and short-term memory are mildly poor. The discs are sharp with positive venous pulsations. There are no exudates, hemorrhages, or blood vessel changes seen. Pupils are 4mm bilaterally and reactive to light. Extraocular eye muscles are intact without nystagmus. Visual acuity and visual frost seem normal grossly to confrontation. There are no deficits to sensation of the face bilaterally. Corneal reflexes are positive bilaterally. Facial strength and symmetry is normal bilaterally. Hearing seems intact grossly to voice and finger rub. Palate moves well without asymmetry. There is normal sternocleidomastoid and trapezius strength bilaterally. Tongue is midline with good strength bilaterally. Neck is with full range of motion without discomfort. There are no cervical bruits. There are no cranial or ocular bruits. Heart is without murmur. Cervical, thoracic, and lumbar spine are nontender to palpation. Gait is not testable and stance sitting up is very poor, falling to the left because she can't maintain posture or truncal tone. With outstretched arms there is drift on the left. There are no resting tremors. She has mild action and postural tremor bilaterally. She has a moderate head tremor. There is some ataxia with [id number] testing and maintaining posture right greater than left hand.. There is decreased facility in the hands. Motor strength is 4+/5 diffusely in the right, including deltoids, biceps, brachioradialis, wrist flexors and extensors, splash line operator, and intrinsic hand muscles. There is mild spasticity. Strength is 4/5 diffusely in the left upper extremity with less tone. Motor strength is 2-3/5 proximally in the legs bilaterally including hip flexors, quadriceps, and hamstring muscles bilaterally. Distally with tibialis anterior, gastrocnemius, and toe extensors she is closer to 4/5 bilaterally. She is thin in her musculature throughout her whole body, but especially distally. Her weight, has been fairly stable at around 100 pounds. The limbs have increased tone with spasticity. Sensory examination is intact to pin and touch throughout all four limbs. Reflexes are 2/4 in the biceps, triceps, brachioradialis, and quadriceps tendons bilaterally. Achilles tendon reflexes are 1/5. Toes are upgoing with plantar stimulation bilaterally. Peripheral pulses are present and of normal quality distally in all four limbs. There is no peripheral edema noted. Laboratory Results Past 24 Hours: 12/05/17 21:05 Red Blood Count 4.46, Mean Corpuscular Volume 93.0, Mean Corpuscular Hemoglobin 30.9, Mean Corpuscular Hemoglobin Concent 33.3, Mean Platelet Volume 9.2, Neutrophils (%) (Auto) 84.3, Lymphocytes (%) (Auto) 10.6, Monocytes (%) (Auto) 3.0, Eosinophils (%) (Auto) 1.5, Basophils (%) (Auto) 0.2, Neutrophils # (Auto) 3.97, Lymphocytes # (Auto) 0.50, Monocytes # (Auto) 0.14, Eosinophils # (Auto) 0.07, Basophils # (Auto) 0.01 12/05/17 21:05 Test 12/05/17 21:02 12/05/17 21:05 12/05/17 21:35 12/05/17 21:54 Bedside Glucose 95 mg/dl (70-90) White Blood Count 4.71 K/uL (4.8-10.8) Red Blood Count 4.46 M/uL (4.2-5.4) Hemoglobin 13.8 g/dL (12.0-16.0) Hematocrit 41.5 % (37-47) Mean Corpuscular Volume 93.0 fL (80-100) Mean Corpuscular Hemoglobin 30.9 pg (25-34) Mean Corpuscular Hemoglobin Concent 33.3 g/dl (32-36) Platelet Count 229 K/uL (130-400) Mean Platelet Volume 9.2 fL (7.4-10.4) Neutrophils (%) (Auto) 84.3 % Lymphocytes (%) (Auto) 10.6 % Monocytes (%) (Auto) 3.0 % Eosinophils (%) (Auto) 1.5 % Basophils (%) (Auto) 0.2 % Neutrophils # (Auto) 3.97 K/uL (1.4-6.5) Lymphocytes # (Auto) 0.50 K/uL (1.2-3.4) Monocytes # (Auto) 0.14 K/uL (0.11-0.59) Eosinophils # (Auto) 0.07 K/uL (0-0.5) Basophils # (Auto) 0.01 K/uL (0-0.2) RDW Standard Deviation 42.4 fL (36.4-46.3) RDW Coefficient of Variation 12.6 % (11.5-14.5) Immature Granulocyte % (Auto) 0.4 % Immature Granulocyte # (Auto) 0.02 K/uL (0.00-0.02) Anion Gap 4.0 mmol/L (3-11) Est Creatinine Clear Calc Drug Dose 80.9 ml/min Estimated GFR () 121.7 Estimated GFR (Non- 105.0 BUN/Creatinine Ratio 14.0 (10-20) Calcium Level 8.3 mg/dl (8.5-10.1) Magnesium Level 2.3 mg/dl (1.8-2.4) Total Creatine Kinase 63 U/L (26-192) Chemistry Specimen Hemolysis Urine Color YELLOW Urine Appearance TURBID (CLEAR) Urine pH 7.5 (4.5-7.5) Urine Specific [employer] 1.024 (1.000-1.030) Urine Protein NEG (NEG) Urine Glucose (UA) NEG (NEG) Urine Ketones TRACE (NEG) Urine Occult Blood NEG (NEG) Urine Nitrite NEG (NEG) Urine Bilirubin NEG (NEG) Urine Urobilinogen NEG (NEG) Urine Leukocyte Esterase MODERATE (NEG) Urine WBC (Auto) 1-5 /hpf (0-5) Urine RBC (Auto) 0-4 /hpf (0-4) Urine Hyaline Casts (Auto) 1-5 /lpf (0-5) Urine Epithelial Cells (Auto) 5-10 /lpf (0-5) Urine Bacteria (Auto) 2+ (NEG) Urine Test NEG (NEG) Urine Opiates Screen NEG (NEG) Urine Methadone, Qualitative NEG (NEG) Urine Barbiturates NEG (NEG) Urine Phencyclidine (PCP) Level NEG (NEG) Ur Amphetamine/Methamphetamine NEG (NEG) MDMA (Ecstasy) Screen NEG (NEG) Urine Benzodiazepines Screen NEG (NEG) Urine Cocaine Metabolite NEG (NEG) Urine Marijuana (THC) POS (NEG) Prothrombin Time 10.0 SECONDS (9.0-12.0) Prothromb Time International Ratio 1.0 (0.9-1.1) Activated Partial Thromboplast Time 25.0 SECONDS (21.0-31.0) Partial Thromboplastin Ratio 1.0 Lactic Acid Level 1.0 mmol/L (0.4-2.0) Test 12/06/17 04:44 Impression 1. Epilepsy The patient has a history of complex partial seizures with secondary generalization despite multiple anticonvulsants since 2004. Overall, she does fairly well over time but continues to have significant breakthrough seizures. She was doing fairly well on the current doses of Lamictal and Vimpat as we tapered the Keppra over the last 2 months. However, she had a significant generalized tonic-clonic event December 05 in the evening. This was triggered by a panic attack (which can trigger seizures for her). The etiology of the panic attack is not known by the patient or her mother. Currently, she is on Lamictal 425 milligrams twice daily, Vimpat 100 milligrams twice daily, and Keppra 250 milligrams in the morning and 500 milligrams at night. She also takes gabapentin 800 milligrams each evening for spasticity. She was given 3 milligrams of Ativan to stop her seizure and later 1 gram of Keppra IV in the emergency room and has had no seizure activity since. She is sleepy this morning (likely Ativan plus postictal state) but otherwise is doing well with her mental status and neurologic examination. 2. Multiple sclerosis Patient has a significant amount of white matter hyperintensities her brain ( and probably spine). Since January of 2016 she has been quite stable on Gilenya. The MS gives her significant spasticity and weakness. She is quite disabled from this condition. It is likely giving her cognitive problems as well. Her mental status, is fairly stable otherwise. 3. Depression and anxiety with history of substance abuse in the past The patient has depression and anxiety have been fairly well controlled on citalopram 40 milligrams daily. She still gets panic attacks and uses small doses of lorazepam as needed. Patient has stopped her alcohol use sometime around 2014 but she continues to use marijuana on occasion as it helps her spasticity. 4. Vitamin-D deficiency Her most recent vitamin-D level was low at 23.7 on 2000 units daily. Vitamin-D deficiency could add to her fatigue and general achiness. Plan 1. Continue Lamictal 425 milligrams twice daily. 2. Check a trough Lamictal level 3. Increase Vimpat to 100 milligrams in the morning and 200 milligrams at night. - Make sure she gets both doses today. - we can increase Vimpat to 200 milligrams twice daily in 1-2 weeks as an outpatient. 4. Change Keppra to 250 milligrams twice daily. 5. Keep gabapentin 800 milligrams each evening. 6. Physical and occupational therapy. This should be arranged as an outpatient as well and they could come to her home. 7. Increase vitamin D to 5000 units vitamin D3 daily 8. Continue Gilenya 0.5 milligrams daily 9. Diet needs supplementation with calories to maintain weight as or appetite is poor. I will follow as an outpatient. Overall, I spent 115 minutes with this case including records review, direct evaluation the patient at bedside, discussion of the case with the patient at bedside, her mother via telephone, clinical staff, and Dr. Farrar regarding clinical course, differential diagnosis, and treatment options.
[2017-12-06] MEDS: CITALOPRAM 40 MG TAB PO SCH (09:12)
[2017-12-06] MEDS: LACOSAMIDE 50 MG TAB PO SCH (09:12)
[2017-12-06] MEDS: CYANOCOBALAMIN 500 MCG TAB (VIT B-12) PO SCH (09:12)
[2017-12-06] MEDS: FINGOLIMOD HCL 0.5 MG CAP PO SCH (09:13)
[2017-12-06] MEDS ORDERED: CHOLECALCIFEROL 1000 INTER.UNIT TAB PO ONE (11:15)
[2017-12-06] MEDS ORDERED: NICOTINE 14 MG/24 HR TDSY TD ONE (11:15)
[2017-12-06] MEDS ORDERED: BOOST PLUS VANILLA OR BOOST GLUCOSE CONTROL STRAWBERRY PO SCH (11:30)
[2017-12-06] MEDS: BOOST PLUS VANILLA OR BOOST GLUCOSE CONTROL STRAWBERRY PO SCH (20:00)
[2017-12-06] MEDS ORDERED: IBUPROFEN 600 MG TAB PO PRN (20:15)
[2017-12-06] MEDS ORDERED: LACOSAMIDE 50 MG TAB PO SCH ×2 (21:00)
[2017-12-06] MEDS ORDERED: LEVETIRACETAM 250 MG TAB PO SCH (21:00)
[2017-12-07] MEDS: LEVOTHYROXINE 50 MCG TAB PO SCH (06:41)
[2017-12-07 07:03] VITALS: BP 102/69; PULSE 84; TEMP 37; O2SAT 98
[2017-12-07] MEDS: CYANOCOBALAMIN 500 MCG TAB (VIT B-12) PO SCH (08:36)
[2017-12-07] MEDS: LACOSAMIDE 50 MG TAB PO SCH (08:36)
[2017-12-07] MEDS: BOOST PLUS VANILLA OR BOOST GLUCOSE CONTROL STRAWBERRY PO SCH (08:36)
[2017-12-07] MEDS: CITALOPRAM 40 MG TAB PO SCH (08:37)
[2017-12-07] MEDS: LEVETIRACETAM 250 MG TAB PO SCH (08:38)
[2017-12-07] MEDS: FINGOLIMOD HCL 0.5 MG CAP PO SCH (08:38)
[2017-12-07] MEDS ORDERED: NICOTINE 14 MG/24 HR TDSY TD SCH (09:00)
[2017-12-07] MEDS ORDERED: CHOLECALCIFEROL 1000 INTER.UNIT TAB PO SCH (09:00)
--- NOTE | 2017-12-07 09:36 | Neurology Progress Notes ---
Neurology Progress Note Date of Service Dec 07, 2017. Subjective Patient feels well and has no seizures, headaches, or dizziness. She is not confused. Nursing reports no seizure activity or other new issues overnight. Objective Date Time Temp Pulse Resp B/P (MAP) Pulse Ox O2 Delivery O2 Flow Rate FiO2 12/07/17 07:03 37.0 84 16 102/69 (80) 98 Room Air 12/07/17 00:00 Room Air 12/06/17 23:29 37.0 78 18 105/71 (82) 99 Room Air 12/06/17 20:00 Room Air 12/06/17 19:07 37.5 76 18 110/76 (87) 95 Room Air 12/06/17 15:24 36.9 106 18 106/65 (79) 93 Room Air 12/06/17 11:40 37.1 91 18 104/69 (81) 95 Exam: She is awake and alert. Speech is without significant aphasia or dysarthria. Extraocular eye muscles are intact without nystagmus. There is no facial droop. The patient has less tremor of the head and arms today than yesterday. She still has some mild ataxia with [id number] testing as before. Her strength is symmetrical in the arms. Current Inpatient Medications Medications (Trade) Dose Ordered Sig/Dinesh Route Start Time Stop Time Status Last Admin Dose Admin Acetaminophen (Tylenol Tab) 650 mg Q4H PRN PO 12/05/17 23:00 01/04/18 22:59 12/06/17 05:29 650 MG Al Hydrox/Mg Hydrox/Simethicone (Maalox Max Susp) 15 ml Q4H PRN PO 12/05/17 23:00 01/04/18 22:59 Magnesium Hydroxide (Milk Of Magnesia Susp) 30 ml Q12H PRN PO 12/05/17 23:00 01/04/18 22:59 Zolpidem Tartrate (Ambien Tab) 5 mg HSZ PRN PO 12/05/17 23:00 01/04/18 22:59 Ondansetron HCl (Zofran Inj) 4 mg Q6H PRN IV 12/05/17 23:00 01/04/18 22:59 12/06/17 02:48 4 MG Polyethylene (Miralax Powder Packet) 17 gm DAILY PRN PO 12/05/17 23:00 01/04/18 22:59 Citalopram Hydrobromide (celeXA TAB) 40 mg QAM PO 12/06/17 09:00 01/05/18 08:59 12/07/17 08:37 40 MG Cyanocobalamin (Vitamin B-12 Tab) 1,000 mcg DAILY PO 12/06/17 09:00 01/05/18 08:59 12/07/17 08:36 1,000 MCG Diazepam (Diastat Rectal Gel) 10 mg UD PRN AR 12/05/17 23:00 01/04/18 22:59 Lamotrigine (Lamictal Tab) 25 mg BID PO 12/06/17 09:00 01/05/18 08:59 12/07/17 08:37 25 MG Lamotrigine (Lamictal Tab) 400 mg BID PO 12/06/17 09:00 01/05/18 08:59 12/07/17 08:37 400 MG Levetiracetam (Keppra Tab) 250 mg QAM PO 12/06/17 09:00 01/05/18 08:59 12/07/17 08:38 250 MG Levothyroxine Sodium (Synthroid Tab) 50 mcg DAILYBB PO 12/06/17 06:00 01/05/18 06:59 12/07/17 06:41 50 MCG Lorazepam (Ativan Tab) 0.5 mg DAILY PRN PO 12/05/17 23:00 01/04/18 22:59 12/06/17 22:31 0.5 MG Lacosamide (Vimpat Tab) 100 mg DAILY PO 12/06/17 09:00 01/05/18 08:59 12/07/17 08:36 100 MG Miscellaneous (Iv Fluids Completed) 1 ea PRN PRN N/A 12/05/17 23:45 12/05/18 23:44 Cholecalciferol (Vitamin D Tab) 5,000 inter.unit QAM PO 12/07/17 09:00 01/06/18 08:59 12/07/17 08:37 5,000 INTER.UNIT Nicotine (Nicoderm Cq 14MG Patch) 1 patch QAM TD 12/07/17 09:00 01/06/18 08:59 12/07/17 08:34 1 PATCH Miscellaneous (Remove Nicoderm Patch) 1 ea HS N/A 12/06/17 21:00 01/05/18 20:59 12/06/17 20:03 1 EA Enteral Nutritional Formula (Boost Plus Vanilla) 1 can BIDM PO 12/06/17 21:00 01/05/18 20:59 12/07/17 08:36 1 CAN Gabapentin (Neurontin Tab) 800 mg HS PO 12/07/17 21:00 01/05/18 08:59 Lacosamide (Vimpat Tab) 200 mg HS PO 12/06/17 21:00 01/05/18 20:59 12/06/17 20:02 200 MG Ibuprofen (Motrin Tab) 600 mg QID PRN PO 12/06/17 20:15 01/05/18 20:14 12/06/17 20:46 600 MG Impression 1. Epilepsy The patient has a history of complex partial seizures with secondary generalization despite multiple anticonvulsants since 2004. Overall, she does fairly well over time but continues to have significant breakthrough seizures. She was doing fairly well on the current doses of Lamictal and Vimpat as we tapered the Keppra over the last 2 months. However, she had a significant generalized tonic-clonic event December 05 in the evening. This was triggered by a panic attack (which can trigger seizures for her). The etiology of the panic attack is not known by the patient or her mother. Currently, she is on Lamictal 425 milligrams twice daily, Vimpat 100 milligrams twice daily, and Keppra 250 milligrams in the morning and 500 milligrams at night. She also takes gabapentin 800 milligrams each evening for spasticity. She was given 3 milligrams of Ativan to stop her seizure and later 1 gram of Keppra IV in the emergency room and has had no seizure activity since. This morning she is much more awake and alert and doing well. 2. Multiple sclerosis Patient has a significant amount of white matter hyperintensities her brain ( and probably spine). Since January of 2016 she has been quite stable on Gilenya. The MS gives her significant spasticity and weakness. She is quite disabled from this condition. It is likely giving her cognitive problems as well. Her mental status, is fairly stable otherwise. 3. Depression and anxiety with history of substance abuse in the past The patient has depression and anxiety have been fairly well controlled on citalopram 40 milligrams daily. She still gets panic attacks and uses small doses of lorazepam as needed. Patient has stopped her alcohol use sometime around 2014 but she continues to use marijuana on occasion as it helps her spasticity. Mood currently is quite good. 4. Vitamin-D deficiency Her most recent vitamin-D level was low at 23.7 on 2000 units daily. Vitamin-D deficiency could add to her fatigue and general achiness. Plan 1. Continue Lamictal 425 milligrams twice daily. 2. A trough Lamictal level is pending 3. Continue Vimpat to 100 milligrams in the morning and 200 milligrams at night. - we can increase Vimpat to 200 milligrams twice daily in 1-2 weeks as an outpatient. 4. Change Keppra to 250 milligrams twice daily. 5. Keep gabapentin 800 milligrams each evening. 6. Physical and occupational therapy. This should be arranged as an outpatient as well and they could come to her home. 7. Increase vitamin D to 5000 units vitamin D3 daily 8. Continue Gilenya 0.5 milligrams daily 9. Diet needs supplementation with calories to maintain weight as or appetite is poor. 10. 1/2 of a 0.5 milligram lorazepam to use as needed at the beginning of a panic attack, which also helps prevent seizures. I have no further neurologic testing or treatment recommendations to make otherwise for this patient and I will follow as an outpatient.
[2017-12-07] MEDS ORDERED: KPP250 PO ×2 (10:17)
[2017-12-07] MEDS ORDERED: NRN800 PO ×2 (10:17)
[2017-12-07] MEDS ORDERED: VTMD1000 PO ×2 (10:17)
[2017-12-07] MEDS ORDERED: LACO50TA PO ×2 (10:17)
--- NOTE | 2017-12-07 10:34 | Discharge Instructions ---
Discharge Instructions Date of Service Dec 07, 2017. Admission Reason for Admission: Ms, Seizure, Confusion Episode, Status Epilepticus Discharge Discharge Diagnosis / Problem: Prolonged seizure Discharge Goals Goal(s): Decrease discomfort, Improve disease control, Therapeutic intervention Activity Recommendations Activity Limitations: resume your previous activity . Instructions / Follow-Up Instructions / Follow-Up You were admitted to hospital with prolonged seizure that required multiple doses of Ativan to break. With the help of neurology, the following changes have been made to your medications: - Continue Lamictal 425mg twice daily - Increase Vimpat to 100mg in the morning and 200mg at night - Decrease Keppra to 250mg twice daily - Increase vitamin D to 5000 IU daily As prevention for seizure recurrence, in addition to compliance with the modified medication regimen, please remember to take lorazepam as needed as soon as you feel a panic attack coming. Additionally advise your care takers to use diazepam if your seizure persists beyond 3-5min Continue your Fingolimod, gabapentin, citalopram, and levothyroxine (remember to take levothyroxine [the thyroid pill] 30min before breakfast) as previously prescribed. You should have a follow up with your neurologist, Dr. Vega in the next ~2 weeks. Please call his office to arrange for an appointment. At time of discharge, your Lamictal and Keppra levels are pending. They can be discussed further at your follow up appointment. We are in the process of helping to arrange home health services including physical and occupation therapy for you at home. If you do not receive notice that these services are being arranged for you, we recommend calling case management in the hospital at some point this week. Also, we recommend follow up with your PCP. You may discuss with them the possibility of a referral to obtain medical marijuana if you are a candidate, given your ongoing use provides you with some MS-related spasticity relief. Thank you for allowing us to participate in your care. Current Hospital Diet Patient's current hospital diet: Regular Diet Discharge Diet Recommended Diet: Regular Diet Pending Studies Studies pending at discharge: yes List of pending studies: Lamictal and Keppra levels Medical Emergencies . Who to Call and When: Medical Emergencies: If at any time you feel your situation is an emergency, please call 911 immediately. . Non-Emergent Contact Non-Emergency issues call your: Primary Care Provider, Neurologist . . "Provider Documentation" section prepared by Belinda Ravi. . Resident Tracking Resident Involvement: Resident Care Provided Care Provided: [facility] Medicine
[2017-12-07 12:06] VITALS: BP 102/69; PULSE 84; TEMP 37; O2SAT 98
--- NOTE | 2017-12-07 12:21 | Discharge Summary ---
Discharge Summary Date of Service Dec 07, 2017. Discharge Summary Admission Date: Dec 05, 2017 at 22:55 Discharge Date: Dec 07, 2017 Discharge Disposition: Home with services Principal Diagnosis: Status epilepticus Problems/Secondary Diagnoses: (1) MS (multiple sclerosis) Status: Chronic (2) MS (multiple sclerosis) Status: Chronic (3) Seizures Status: Chronic Immunizations: Have You Had Influenza Vaccine: No History of Tetanus Vaccine?: No History of Pneumococcal: Yes History of Hepatitis B Vaccine: No Consultations: Neurology Medication Reconciliation New Medications: Cholecalciferol (Vitamin D3) 1,000 Inter.unit Tab 5000 INTER.UNIT PO QAM, #120 TAB 3 Refills Lacosamide (Vimpat) 50 Mg Tab 200 MG PO HS, #120 TAB Levetiractam (Keppra) 250 Mg Tab 250 MG PO BID, #60 TAB 3 Refills Changed Medications: Gabapentin (Gabapentin) 800 Mg Tab 800 MG PO HS, #30 TAB (Changed from: QAM) Continued Medications: Citalopram (Citalopram Hydrobromide) 40 Mg Tab 40 MG PO QAM Cyanocobalamin (Vitamin B-12) 1,000 Mcg Tab 1000 MCG PO DAILY, TAB Diazepam (Anticonvulsant) (Diazepam Rectal Gel) 10 Mg Gel 1 APPLN TN UD PRN for CONVULSIVE SEIZURE Fingolimod Hcl (Gilenya) 0.5 Mg Cap 0.5 MG PO DAILY Lacosamide (Vimpat) 100 Mg Tab 100 MG PO DAILY Lamotrigine (Lamictal) 200 Mg Tab 400 MG PO BID TWO 200 MG TABLETS Lamotrigine (Lamotrigine) 25 Mg Tab 1 TAB PO BID TOTAL DOSE OF 425MG BID Levothyroxine Sodium (Levothyroxine Sodium) 50 Mcg Tab 50 MCG PO DAILY Lorazepam (Ativan) 0.5 Mg Tab 1 TAB PO DAILY PRN for PANIC ATTACKS, TAB Discontinued Medications: Cholecalciferol (Vitamin D3) 2,000 Unit Cap 2000 CAP PO DAILY Levetiracetam (Keppra) 250 Mg Tab 250 MG PO QAM Levetiractam (Keppra) 250 Mg Tab 500 MG PO QPM, TAB Discharge Exam Patient feeling better this morning - she denies recurrence of seizures and improvement of strength to baseline. She otherwise denies fevers/chills, headaches, CP, palpitations, dyspnea, abdominal pain, lower extremity swelling or rashes. She tolerated breakfast, without nausea or vomiting, and denies issues with voiding and stooling. All Other Systems: Reviewed and Negative Physical Exam General Appearance: WD/WN, no apparent distress, + cachetic Eyes: normal inspection ENT: hearing grossly normal Neck: supple Respiratory/Chest: normal breath sounds, no respiratory distress, no accessory muscle use Cardiovascular: regular rate, rhythm, no murmur Abdomen: normal bowel sounds, non tender, soft Extremities: no pedal edema, no calf tenderness Neurologic/Psychiatric: alert, normal mood/affect, oriented x 3, + motor weakness (4/5 in upper extremities, 2/5 in lower extremities, increased tone in LE), + pertinent finding (tremulous, slow speech) Skin: normal color, warm/dry, no rash Hospital Course 36 yo F with a pMHx of MS, seizure disorder, hypothyroidism admitted for status epilepticus ~45min, resolved with three doses of 1mg lorazepam followed by a post ictal course. She did receive a loading dose of 1g of Keppra in the ER. Status epilepticus - Meds adjusted per neurology to: Lamictal 425mg BID, Vimpat to 100mg qAM and 200 mg HS (plans to increase further in outpatient setting), Keppra to 250mg BID - Lamictal and Keppra levels pending on discharge - Follow up with neurology for further medication titration Left hemiparesis in post ictal state - resolved. 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, and this hemiparesis is a recurrent pattern due to seizures and presents in her post- ictal state MS - Continue daily Fingolimod, gabapentin 800mg HS (due to sedating effects) for spasticity - Tox screen positive for marijuana, which she admits to smoking to help with spasticity - may benefit from outpatient referral for medical marijuana - Vitamin D levels low (target 50), will increase supplementation to 5000units qAM with repeat levels in a few months by neurology Failure to thrive/weakness - related to MS - Continue Ensure supplementation in addition to regular diet. - PT/OT home health services recommended Tobacco abuse - cessation encouraged. Nicotine patch ordered while in hospital Depression - Continue home citalopram Hypothyroidism - TSH 0.9 (10/17), continue home levothyroxine FULL CODE Total Time Spent: Less than 30 minutes This includes examination of the patient, discharge planning, medication reconciliation, and communication with other providers. Discharge Instructions Please refer to the electronic Patient Visit Report (Discharge Instructions) for additional information. Additional Copies To RV. [place] MD Resident Tracking Resident Involvement: Resident Care Provided Care Provided: Adult [facility] Medicine Reviewed: Pt Seen/Exam by Me History doing much better no further seizures Constitutional: denies: fever Respiratory: negative: short of breath Cardiovascular: denies chest pain General Appearance: no apparent distress Respiratory: lungs clear, no respiratory distress Cardiovascular: regular rate, rhythm Neurologic/Psychiatric: alert, oriented x 3, other (chorea type movement of extremity off and on) Skin Characteristics: warm/dry Assessment/Plan Resident Physician Supervision Note: I independently interviewed and examined the patient and verified the [place] history and physical, reviewed labs and image studies, discussed the case with the resident Dr. Ravi and agree with the findings and care plan.
[2017-12-07] MEDS ORDERED: GABAPENTIN 800 MG TAB PO SCH (21:00)
[2017-12-11 22:32] LABS: LAMICTAL (LAMOTRIGINE)**22060 9.1 mcg/mL (4.0-18.0)
== END 2017-12-07 13:13 | disposition home health service (06) ==
LOC: EDBD 20:49 → C.EDB 20:51 → C.2T 22:55 → ENRESERV 23:10
PROVIDERS: ADMIT Internal Medicine; ATTEND Family Medicine
DX: G40.901 Epilepsy, unspecified, not intractable, with status epilepticus (principal); G35 Multiple sclerosis; Z79.899 Other long term (current) drug therapy; F17.200 Nicotine dependence, unspecified, uncomplicated; F32.9 Major depressive disorder, single episode, unspecified; E03.9 Hypothyroidism, unspecified; Z82.0 Family history of epilepsy and other diseases of the nervous system; Z88.0 Allergy status to penicillin; Z88.1 Allergy status to other antibiotic agents; F12.90 Cannabis use, unspecified, uncomplicated

== ENCOUNTER 2018-01-05 17:02 | Emergency (ER) | payer OTHER ==
[~2018-01-05] VITALS: Ht 172.7 cm; Wt 45.1 kg
[~2018-01-05 17:02] MED LIST changes: +KPP/250 PO; +KPP250 PO; +LACO100T PO; +LACO50TA PO; +VTMD1000 PO; +[UNRECOGNIZED DRUG - CODE] PO
[2018-01-05 17:25] VITALS: TEMP 37.1; Ht 172.7 cm; Wt 45.1 kg
[2018-01-05] MEDS ORDERED: SODIUM CHLORIDE 0.9% 1000ML 1,000 ML IV STA ×2 (17:28→18:40)
[2018-01-05] MEDS ORDERED: ONDANSETRON INJ 2 MG/ML 2 ML VIAL IV STA (17:35)
[2018-01-05] MEDS ORDERED: CHOL500021 PO (17:44)
[2018-01-05] MEDS ORDERED: FAMOTIDINE 20 MG TAB PO ONE (17:45)
[2018-01-05] MEDS ORDERED: LACO200T PO (17:47)
--- NOTE | 2018-01-05 17:47 | EMERGENCY ROOM VISIT NOTE ---
History Report prepared by Jordyn: Ricardo Mckeon Under the Supervision of: Dr. Malik Vaz M.D. First contact with patient: 17:17 Chief Complaint: SEIZURE Stated Complaint: SEIZURE History of Present Illness The patient is a 37 year old female who presents to the Emergency Room with a seizure that occurred today at 1540 and lasted 20 minutes. The patient's family states that they gave the patient Diazepam rectally and that the patient's seizure resolved. Per family, the patient has a history of seizures, but they do not usually last this long. The patient states she was admitted in November for seizures and this is the first seizure that the patient has had since that admission. Per family, the patient has had a change in her medicine in the past couple months. Her family states that the patient used to take Keppra but has been weened off of that and now takes 200mg of Vimpat twice a day and 425mg of Lamictal twice a day. Her family also states that the patient has vomited the past 3 mornings about an hour and a half after taking her medications. Per family, the patient's legs have been going stiff the past week and are accompanied with tremors. Per family, the patient has had not any fevers, chills , or diarrhea, but the patient does report having a headache. The patient denies a history of reflux and alcohol use. The patient notes that she does use marijuana and states that she uses it almost daily. Denies any association of when she smokes marijuana and her nausea vomiting. Per family, the patient has Multiple Sclerosis causing her to not be able to walk or sit up independently. Source of History: patient, family Onset: 1539 today Position: other (generalized) Quality: other (seizure) Timing: other (20 minutes long) Associated Symptoms: + headache, + nausea, + vomiting, No fevers, No chills , No diarrhea Review of Systems See HPI for pertinent positives and negatives. A total of ten systems were reviewed and were otherwise negative. Past Medical & Surgical Medical Problems: (1) Altered mental status (2) Expressive aphasia (3) Expressive aphasia (4) Grand mal convulsion (5) MS (multiple sclerosis) (6) MS (multiple sclerosis) (7) Multiple sclerosis (8) Seizures (9) Seizures (10) Sprain of knee (11) Sprain of knee (12) Status epilepticus Surgical Problems: (1) History of knee surgery Family History FHx: hypertension FHx: seizures Social History Smoking Status: Current Every Day Smoker Alcohol Use: none Drug Use: marijuana Marital Status: single Housing Status: lives with family Occupation Status: disabled Current/Historical Medications Scheduled Cefdinir (Omnicef), 300 MG PO Q12H Cholecalciferol (Vitamin D3), 5,000 UNITS PO DAILY Citalopram (Citalopram Hydrobromide), 40 MG PO QAM Cyanocobalamin (Vitamin B-12), 1,000 MCG PO DAILY Fingolimod Hcl (Gilenya), 0.5 MG PO DAILY Lacosamide (Vimpat), 200 MG PO AMPM Lamotrigine (Lamictal), 400 MG PO BID Lamotrigine (Lamotrigine), 25 MG PO BID Levothyroxine Sodium (Levothyroxine Sodium), 50 MCG PO DAILY Ondasetron Odt (Zofran Odt), 4 MG SL Q6H Saccharomyces Boulardii (Florastor), 1 CAP PO BID Scheduled PRN Diazepam (Anticonvulsant) (Diazepam Rectal Gel), 1 APPLN SD UD PRN for CONVULSIVE SEIZURE Famotidine (Pepcid), 20 MG PO BID PRN for GI Upset Lorazepam (Ativan), 0.5 MG PO DAILY PRN for PANIC ATTACKS Allergies Coded Allergies: Penicillins (Verified Allergy, Mild, 12/05/17) Clindamycin (Verified Adverse Reaction, Severe, NAUSEA/VOMITING, 12/05/17) Rice (Verified Adverse Reaction, Unknown, vomiting, 12/05/17) Physical Exam Vital Signs Date Time Temp Pulse Resp B/P (MAP) Pulse Ox O2 Delivery O2 Flow Rate FiO2 01/05/18 19:34 87 18 96 Room Air 01/05/18 18:08 85 15 125/80 93 Room Air 01/05/18 17:25 37.1 89 117/82 95 Room Air Physical Exam GENERAL: Awake, alert, chronically ill-appearing, in no acute distress HENT: Normocephalic, atraumatic. Oropharynx unremarkable. Mucous membranes are dry. EYES: Normal conjunctiva. Sclera non-icteric. NECK: Supple. No nuchal rigidity. FROM. No JVD. RESPIRATORY: Clear to auscultation. CARDIAC: Regular rate, normal rhythm. Extremities warm and well perfused. Pulses equal. ABDOMEN: Soft, non-distended. No tenderness to palpation. No rebound or guarding. No masses. RECTAL: Deferred. MUSCULOSKELETAL: Baseline myoclonus, baseline 3/5 strength in lower extremities , baseline 4/5 strength in upper extremities. LOWER EXTREMITIES: Calves are equal size bilaterally and non-tender. No edema. No discoloration. NEURO: Normal sensorium. No sensory or motor deficits noted. SKIN: No rash or jaundice noted. Medical Decision & Procedures ER Provider Diagnostic Interpretation: Radiology results as stated below per my review and radiologist interpretation: CHEST ONE VIEW PORTABLE CLINICAL HISTORY: seizure COMPARISON STUDY: No previous studies for comparison. FINDINGS: The bones soft tissues and hemidiaphragms are normal. The cardiomediastinal silhouette is normal. The lungs are clear. The pulmonary vasculature is normal. IMPRESSION: Negative chest. The above report was generated using voice recognition software. It may contain grammatical, syntax or spelling errors. Electronically signed by: Nitin Duncan M.D. 01/05/2018 6:03 PM Dictated Date/Time: 01/05/2018 6:02 PM Laboratory Results 01/05/18 18:27 Red Blood Count 4.51, Mean Corpuscular Volume 93.1, Mean Corpuscular Hemoglobin 30.8, Mean Corpuscular Hemoglobin Concent 33.1, Mean Platelet Volume 9.2, Neutrophils (%) (Auto) 89.1, Lymphocytes (%) (Auto) 3.0, Monocytes (%) (Auto) 7.2, Eosinophils (%) (Auto) 0.5, Basophils (%) (Auto) 0.0, Neutrophils # (Auto) 5.09, Lymphocytes # (Auto) 0.17, Monocytes # (Auto) 0.41, Eosinophils # (Auto) 0.03, Basophils # (Auto) 0.00 01/05/18 18:27 Test 01/05/18 18:27 01/05/18 19:27 White Blood Count 5.71 K/uL (4.8-10.8) Red Blood Count 4.51 M/uL (4.2-5.4) Hemoglobin 13.9 g/dL (12.0-16.0) Hematocrit 42.0 % (37-47) Mean Corpuscular Volume 93.1 fL (80-100) Mean Corpuscular Hemoglobin 30.8 pg (25-34) Mean Corpuscular Hemoglobin Concent 33.1 g/dl (32-36) Platelet Count 225 K/uL (130-400) Mean Platelet Volume 9.2 fL (7.4-10.4) Neutrophils (%) (Auto) 89.1 % Lymphocytes (%) (Auto) 3.0 % Monocytes (%) (Auto) 7.2 % Eosinophils (%) (Auto) 0.5 % Basophils (%) (Auto) 0.0 % Neutrophils # (Auto) 5.09 K/uL (1.4-6.5) Lymphocytes # (Auto) 0.17 K/uL (1.2-3.4) Monocytes # (Auto) 0.41 K/uL (0.11-0.59) Eosinophils # (Auto) 0.03 K/uL (0-0.5) Basophils # (Auto) 0.00 K/uL (0-0.2) RDW Standard Deviation 42.5 fL (36.4-46.3) RDW Coefficient of Variation 12.6 % (11.5-14.5) Immature Granulocyte % (Auto) 0.2 % Immature Granulocyte # (Auto) 0.01 K/uL (0.00-0.02) Anion Gap 6.0 mmol/L (3-11) Est Creatinine Clear Calc Drug Dose 92.3 ml/min Estimated GFR () 135.9 Estimated GFR (Non- 117.3 BUN/Creatinine Ratio 14.0 (10-20) Calcium Level 8.7 mg/dl (8.5-10.1) Phosphorus Level 2.9 mg/dl (2.5-4.9) Magnesium Level 2.1 mg/dl (1.8-2.4) Total Bilirubin 0.3 mg/dl (0.2-1) Direct Bilirubin 0.1 mg/dl (0-0.2) Aspartate Amino Transf (AST/SGOT) 15 U/L (15-37) Alanine Aminotransferase (ALT/SGPT) 35 U/L (12-78) Alkaline Phosphatase 102 U/L (45-117) Total Protein 7.1 gm/dl (6.4-8.2) Albumin 4.4 gm/dl (3.4-5.0) Lipase 214 U/L (73-393) Human Chorionic Gonadotropin, Qual NEG (NEG) Urine Color DK YELLOW Urine Appearance TURBID (CLEAR) Urine pH >= 9.0 (4.5-7.5) Urine Specific [place] 1.024 (1.000-1.030) Urine Protein 1+ (NEG) Urine Glucose (UA) NEG (NEG) Urine Ketones TRACE (NEG) Urine Occult Blood NEG (NEG) Urine Nitrite NEG (NEG) Urine Bilirubin NEG (NEG) Urine Urobilinogen NEG (NEG) Urine Leukocyte Esterase MODERATE (NEG) Urine WBC (Auto) 10-30 /hpf (0-5) Urine RBC (Auto) 0-4 /hpf (0-4) Urine Hyaline Casts (Auto) /lpf (0-5) Urine Epithelial Cells (Auto) >30 /lpf (0-5) Urine Bacteria (Auto) 4+ (NEG) Urine RBC 0-4 /hpf (0-4) Urine WBC 10-30 /hpf (0-5) Urine Epithelial Cells >30 /lpf (0-5) Urine Crystals TRIPLE PHOSPHATE Urine Triple Phosphate Crystals PRESENT (NONE PRSENT) Urine Amorphous Sediment PRESENT (NONE PRSENT) Urine Bacteria 4+ (NEG) Urine Pathogenic Casts /lpf (0) Urine Yeast (Auto) (NONE PRSENT) Laboratory results reviewed by me Medications Administered Medications (Trade) Dose Ordered Sig/Dinesh Route Start Time Stop Time Status Last Admin Dose Admin Sodium Chloride 1,000 ml @ 999 mls/hr Q1H1M STAT IV 01/05/18 17:28 01/05/18 18:28 DC 01/05/18 18:06 999 MLS/HR Ondansetron HCl (Zofran Inj) 4 mg NOW STAT IV 01/05/18 17:35 01/05/18 17:37 DC 01/05/18 18:06 4 MG Famotidine (Pepcid Tab) 20 mg NOW ONCE PO 01/05/18 17:45 01/05/18 17:46 DC 01/05/18 18:06 20 MG Lacosamide (Vimpat Tab) 200 mg NOW STAT PO 01/05/18 19:48 01/05/18 19:49 DC 01/05/18 20:11 200 MG Lamotrigine (Lamictal Tab) 425 mg NOW STAT PO 01/05/18 19:48 01/05/18 19:49 DC 01/05/18 20:11 425 MG Ketorolac Tromethamine (Toradol Inj) 15 mg NOW STAT IV 01/05/18 20:18 01/05/18 20:19 DC 01/05/18 20:52 15 MG Cefdinir (Omnicef Cap) 300 mg ONE STAT PO 01/05/18 20:41 01/05/18 20:43 DC 01/05/18 20:51 300 MG ED Course 1721: The patient was evaluated in room B12A. A complete history and physical exam was performed. 1847: I checked on the patient and she is feeling better but still has spasticity. 1938: I discussed the patient with Dr Orozco -Neurology. He said that since we have a good story as to why the patient had the seizure then we can treat her supportively and no changes are necessary. He said that he will see her in the clinic. Medical Decision I reviewed the patient's past medical history, medications, and the nursing notes as described above. Differential diagnosis: Etiologies such as infection, hypoglycemia, electrolyte abnormalities, cardiac sources, intracerebral event, trauma, toxicologic, neurologic, as well as others were entertained. The patient is a 37-year-old woman with a past medical history of seizure disorder/epilepsy, MS with chronic spasticity on fingolimod, who presents emergency department with 20 minute seizure episode that occurred today in her bed while having physical therapy which resolved with Diastat per hpi. Of note , the patient's seizure occurs in the setting of having nausea vomiting over the past several days in the morning approximately an hour after taking her seizure medications. Is also in the setting of being admitted at the beginning of November for status epilepticus and since then has increased her Vimpat and been weaned off of her Keppra. Her current medication are 200 mg of Vimpat twice daily and 420 mg of Lamictal twice daily. Of note the patient reports smoking marijuana regularly but denies any association with when she smokes and her nausea and vomiting. On arrival the patient is fatigued appearing but no acute distress, afebrile with stable vital signs. No evidence of trauma. WBC within normal limits. Chemistry unremarkable without evidence of acidosis. UA with greater than 30 epithelial cells however 4+ bacteria with moderate leuk esterase and 10-30 wbcs. The patient's recent nausea and vomiting symptoms possibly related to UTI thus will treat. Of note, given no evidence of trauma in setting of known seizure disorder will defer brain imaging at this time. Case was discussed with Dr. rOozco, neurology perfusionist, and we agree that given that the patient's seizure episode occurs in the setting of her nausea and vomiting shortly after her morning medications is reasonable to continue her medications as is at this time. She will follow-up in the neurology clinic with Dr. Vega and assess need for additional medication changes. Will treat patient with Cefdinir for UTI. Of note, I did offer the patient that we give her a dose of her Gilenya, given that her specificity has likely worsened given likely limited absorption of her morning medications due to her vomiting. However, she prefers to resume this tomorrow morning. Findings and plan for follow-up reviewed with patient. Patient agreeable and d/c'd per discharge instructions. Medication Reconcilliation Current Medication List: was personally reviewed by me Blood Pressure Screening Patient's blood pressure: Normal blood pressure Consults Time Called: 1919 Consulting Physician: Dr. Orozco- [facility] Returned Call: 1938 I discussed the patient with Dr Orozco -Neurology. We agree to defer any medication changes at this time given, patient's nausea and vomiting likely provoking factor. Tx supportively and patient will f/u in clinic for possible medication adjustments. Impression Primary Impression: Seizure Additional Impression: UTI (urinary tract infection) Scribe Attestation The scribe's documentation has been prepared under my direction and personally reviewed by me in its entirety. I confirm that the note above accurately reflects all work, treatment, procedures, and medical decision making performed by me. Departure Information Dispostion Home / Self-Care Prescriptions Saccharomyces Boulardii (Florastor) 250 Mg Cap 1 CAP PO BID for 10 Days, #20 CAP Prov: Malik Vaz M.D. 01/05/18 Famotidine (PEPCID) 20 Mg Tab 20 MG PO BID Y for GI Upset for 7 Days, #14 TAB Prov: Malik Vaz M.D. 01/05/18 Ondasetron Odt (ZOFRAN ODT) 4 Mg Tab 4 MG SL Q6H for Nausea, #10 TAB Prov: Malik Vaz M.D. 01/05/18 Cefdinir (OMNICEF) 300 Mg Cap 300 MG PO Q12H for 5 Days, #10 CAP Prov: Malik Vaz M.D. 01/05/18 Referrals RV. [place] MD (PCP) Arsen Vega M.D. Patient Instructions ED Dehydration, ED GERD, ED Seizure Recurrent, ED UTI Cystitis Female, My [facility] Additional Instructions Please follow up with your neurologist, Dr. Vega, in the next 1-3 days for re- evaluation. Your seizure episode may have been provoked by decreased absorption of your medications given your nausea and vomiting over the past several days, which is likely due to her urinary tract infection with a possible component of reflux/ gastritis. Otherwise, your exam, chest xray, and lab results did not show signs of an emergent condition at this time. Continue your current medications as prescribed. Keflex as directed. Zofran as needed for nausea. Pepcid as needed for GI upset/acid reduction. Florastor, probiotic, to help prevent antibiotic associated diarrhea. Drink plenty of fluids to ensure hydration. Return to the emergency department for worsening symptoms as described in the accompanying instructions. Problem Qualifiers
--- NOTE | 2018-01-05 18:05 | DIAGNOSTIC IMAGING REPORT ---
CHEST ONE VIEW PORTABLE CLINICAL HISTORY: seizure COMPARISON STUDY: No previous studies for comparison. FINDINGS: The bones soft tissues and hemidiaphragms are normal. The cardiomediastinal silhouette is normal. The lungs are clear. The pulmonary vasculature is normal. IMPRESSION: Negative chest. The above report was generated using voice recognition software. It may contain grammatical, syntax or spelling errors. Electronically signed by: Nitin Duncan M.D. 01/05/2018 6:03 PM Dictated Date/Time: 01/05/2018 6:02 PM
[2018-01-05 18:08] VITALS: BP 125/80
[2018-01-05 18:36] LABS: EOS % 0.5 %; EOS ABS # 0.03 K/uL (0-0.5); HEMOGLOBIN 13.9 g/dL (12.0-16.0); IG# 0.01 K/uL (0.00-0.02); LYMPH ABS # 0.17 K/uL (1.2-3.4); MEAN CELL VOLUME 93.1 fL (80-100); MEAN CORPUSCULAR HEMOGLOBIN 30.8 pg (25-34); MEAN CORPUSCULAR HGB CONC 33.1 g/dl (32-36); MEAN PLATELET VOLUME 9.2 fL (7.4-10.4); MONO % 7.2 %; MONO ABS # 0.41 K/uL (0.11-0.59); NEUT % 89.1 %; NEUT ABS # 5.09 K/uL (1.4-6.5); PLATELET COUNT 225 K/uL (130-400); RED CELL DISTRIBUTION WIDTH CV 12.6 % (11.5-14.5); RED CELL DISTRIBUTION WIDTH SD 42.5 fL (36.4-46.3); WHITE BLOOD COUNT 5.71 K/uL (4.8-10.8)
[2018-01-05] MEDS ORDERED: ACETAMINOPHEN IV 100 ML IV STA (18:53)
[2018-01-05 19:02] LABS: ALBUMIN 4.4 gm/dl (3.4-5.0); CALCIUM 8.7 mg/dl (8.5-10.1); CREATININE 0.6 mg/dl (0.60-1.20); PHOSPHORUS 2.9 mg/dl (2.5-4.9); POTASSIUM 3.6 mmol/L (3.5-5.1); TOTAL PROTEIN 7.1 gm/dl (6.4-8.2)
[2018-01-05 19:34] VITALS: PULSE 87; O2SAT 96
[2018-01-05] MEDS ORDERED: LACOSAMIDE 50 MG TAB PO STA (19:48)
[2018-01-05] MEDS ORDERED: KETOROLAC TROMETHAMINE 30 MG/ML VIAL IV STA (20:18)
[2018-01-05] MEDS ORDERED: CEFDINIR 300 MG CAP PO STA (20:41)
[2018-01-05] MEDS ORDERED: CEFD300C2 PO (20:46)
[2018-01-05] MEDS ORDERED: FAMO20TA9 PO (20:46)
[2018-01-05] MEDS ORDERED: ONDA4TAB10 SL (20:46)
[2018-01-05] MEDS ORDERED: SACC250C3 PO (20:48)
== END 2018-01-05 21:10 | disposition home or self-care (01) ==
LOC: EDBD 17:02 → C.EDB 17:04
DX: G40.909 Epilepsy, unspecified, not intractable, without status epilepticus (principal); N39.0 Urinary tract infection, site not specified; Z79.899 Other long term (current) drug therapy; F12.90 Cannabis use, unspecified, uncomplicated; G35 Multiple sclerosis; F17.210 Nicotine dependence, cigarettes, uncomplicated; Z82.49 Family history of ischemic heart disease and other diseases of the circulatory system; Z82.0 Family history of epilepsy and other diseases of the nervous system; Z88.0 Allergy status to penicillin; Z88.1 Allergy status to other antibiotic agents; Z91.018 Allergy to other foods

== ENCOUNTER → 2018-01-10 | Outpatient (CLI) | payer OTHER ==
[~2018-01-10] MED LIST changes: +CEFD300C2 PO; -CHOL2000 PO; +CHOL500021 PO; +FAMO20TA9 PO; -GABA800T PO; -KPP/250 PO; -KPP250 PO; -LACO100T PO; +LACO200T PO; -LACO50TA PO; -LEVE500T13 PO; -METH500T37 PO; -NRN800 PO; +ONDA4TAB10 SL; +SACC250C3 PO; -SULF800T23 PO; -VTMD1000 PO; -[UNRECOGNIZED DRUG - CODE] PO
== END | disposition home or self-care (01) ==
LOC: C.LAB 10:15
PROVIDERS: ATTEND Physician Assistant
DX: G40.309 Generalized idiopathic epilepsy and epileptic syndromes, not intractable, without status epilepticus (principal)

== ENCOUNTER → 2018-01-22 | Outpatient (CLI) | payer OTHER ==
[~2018-01-22] MED LIST changes: -CEFD300C2 PO; -FAMO20TA9 PO; +GADAVIST IV PRN; -SACC250C3 PO
--- NOTE | 2018-01-22 12:28 | DIAGNOSTIC IMAGING REPORT ---
MRI OF THE BRAIN COMBO CLINICAL HISTORY: Multiple sclerosis. Change in mental status. COMPARISON STUDY: MRI of the brain dated 08/16/2017. TECHNIQUE: MRI of the brain was performed utilizing various T1 and T2-weighted sequences in the axial, sagittal, and coronal planes. Contrast-enhanced sequences were acquired following the administration of 4.5 cc of Gadavist. The examination is performed using the multiple sclerosis protocol. The examination is degraded by motion artifact. FINDINGS: Brain parenchyma: There is advanced confluent T2 signal abnormality seen throughout the subcortical and periventricular white matter, similar prior studies. No associated abnormal enhancement is identified on the postcontrast sequences. Mild volume loss is advanced for age. There is no hemorrhage or mass effect. There is no restricted diffusion to suggest acute ischemia. No enhancing mass lesion is identified on the postcontrast images. Paul-white matter differentiation is preserved. No extra-axial fluid collection is seen. The cerebellar tonsils are normal in configuration. Ventricles, sulci, and cisterns: Normal in configuration. Pituitary and sella: Unremarkable. Intracranial vasculature: Normal flow voids are maintained at the skull base. Orbits: The bony orbits are grossly intact. Orbital contents are normal in appearance. Sinuses and mastoids: Clear. Calvarium: Unremarkable. Cervical cord: Partially visualized cervical spinal cord is normal in morphology and signal intensity. IMPRESSION: 1. No acute intracranial abnormality. 2. Extensive and confluent T2 signal abnormality is again seen throughout the subcortical and periventricular white matter. This has not significantly changed from prior examinations and would be consistent with the reported clinical history of multiple sclerosis. 3. There is no abnormal postcontrast enhancement identified to suggest active demyelination. Electronically signed by: Bruno Charlton M.D. 01/22/2018 12:26 PM Dictated Date/Time: 01/22/2018 12:13 PM
== END | disposition home or self-care (01) ==
LOC: C.MRI 10:55
PROVIDERS: ATTEND Physician Assistant
DX: R41.0 Disorientation, unspecified (principal); G35 Multiple sclerosis